=== PATIENT | female | born 1955 | race Caucasian/White ===

== ENCOUNTER 2016-05-05 10:35 | Inpatient (IN) ==
[2016-05-05] MEDS ORDERED: SODIUM CHLORIDE 0.9% 1,000 ML IV STA (11:14)
[2016-05-05] MEDS ORDERED: THIAMINE 200 MG/2 ML VIAL IV STA (11:14)
[2016-05-05] MEDS ORDERED: MAGNESIUM SULF RIDER 1 GM in PREMIX 1 EACH IV STA (11:14)
[2016-05-05 11:37] LABS: Basophils # 0.1 10*3/uL (0.0-0.2); Basophils % 0.7 % (0.0-0.8); Eosinophils # 0.1 10*3/uL (0.0-0.87); Eosinophils % 0.9 % (0.00-10.9); Hematocrit 26.7 VOL% (35.7-47.0); Hemoglobin 8.5 GM/DL (12.0-16.0); Immature Granulocytes % 0.4 %; Immature Granulocytes Absolute 0.04 #; Lymphocytes % 28.1 % (21.3-54.2); Mean Corpuscular HGB Conc 31.8 GM/DL (32-36); Mean Corpuscular Hemoglobin 25 PG (27-34); Mean Corpuscular Volume 79.5 FL (87-102); Mean Platelet Volume 9.2 FL (9.6-12.0); Monocytes # 0.6 10*3/uL (0.11-0.8); Monocytes % 5.6 % (1.7-12.7); Neutrophils # 6.8 10*3/uL (1.4-7.4); Neutrophils % 64.3 % (38.7-73.9); Platelet Count 432 10*3/uL (130-400); Red Blood Count 3.36 10*6/uL (3.8-5.5); Red Cell Distribution Width 15.7 % (9.3-17.3); White Blood Count 10.5 10*3/uL (4.5-13.71)
--- NOTE | 2016-05-05 11:45 | XRay Report ---
Portable chest Date:[05/05/2016] Clinical history: Alteration of consciousness Comparison: 08/30/2015 Technique: Portable AP sitting chest Findings: Persistent cardiomegaly with progressive diffuse parenchymal findings especially in the lower lung zones with small pleural effusions. Postoperative findings in the right breast location. Increased hilar density with degenerative changes. Hiatal hernia. Impression: Progressive CHF/bilateral pneumonia with small pleural effusions. Hiatal hernia. Followup chest x-ray recommended. PROCEDURE INTERPRETED AT [facility] DEPARTMENT OF RADIOLOGY Final Report Signed by: Dr. Angela Powell
--- NOTE | 2016-05-05 11:58 | Emergency Department Note ---
Halle Alvarado Gwan, am scribing for, and in the presence of, Lux Farrell MD 11:35. Jami Alvarado Phillip K, MD, personally performed the services described in this documentation, ascribed by Luis Neri in my presence, and it is both accurate and complete . Arrival - Arrival Chief Complaint: Altered Mental Status Stated Complaint: Altered LOC ED Nursing Triage Note: Brought in by EMS c/o altered LOC-onset 5 days ago. Patient's daughter states that she has been binge drinking for the past 5 days. Reports that she has been drinking 4 pints of vodka daily. O2 sat 70% on room air, improved to 95% on 4L o2. Mode of Arrival: Stretcher Source: Family (Daughter), EMS, Old Records Reviewed, RN Notes Reviewed Time Seen by Provider: 05/05/16 11:04 - History of Present Illness HPI Narrative: Pt is a 60 y/o female, whit a hx of pancreatits and COPD, who presents to the ED for further evaluation of unresponsiveness with an onset today. Patient is a poor historian and she is accompanied by her daughter. Daughter noted that pt was to report to [place] today for detox and after she did not show up she went to pts home and found her on the couch, unresponsive and unable to stimulate with shaking or pouring water on her. This prompted their visit to the ED today. EMS noted that pt's BS was 253 and O2 sat was 70% en route. Daughter continued to confirm that pt drinks 4 pints of ETOH daily, was in detox 2 weeks ago in [place], has been in and out of Detox for the past 6 years. She denies that the pt is taking any medications or that she has had any N/V. No other problems/complaints reported in ED. Onset (ago): hour(s) Consistency: constant Severity: severe Date of Last Menstrual Period: lisset Allergies/Adverse Reactions: Allergies Allergy/AdvReac Type Severity Reaction Status Date / Time aripiprazole [From Abilify] Allergy RASH Verified 10/19/14 16:40 bupropion [From Wellbutrin] Allergy RASH Verified 10/19/14 16:40 Cefaclor [From Ceclor] Allergy RASH Verified 10/19/14 16:40 celecoxib [From Celebrex] Allergy RASH Verified 10/19/14 16:40 ciprofloxacin [From Cipro] Allergy RASH Verified 10/19/14 16:40 citalopram [From Celexa] Allergy RASH Verified 10/19/14 16:40 codeine Allergy RASH Verified 10/19/14 16:40 hydrocodone Allergy RASH Verified 10/19/14 16:40 Hydromorphone [From Dilaudid] Allergy RASH Verified 10/19/14 16:40 meperidine [From Demerol] Allergy RASH Verified 10/19/14 16:40 metronidazole [From Flagyl] Allergy RASH Verified 10/19/14 16:40 morphine Allergy RASH Verified 10/19/14 16:40 Shellfish Allergy RASH Verified 10/19/14 16:40 Home Medications: Home Medications Medication Instructions Recorded Confirmed Type Lisinopril 10 mg PO QPM 08/03/14 09/21/15 History Methocarbamol 750 mg PO QID PRN 08/03/14 09/21/15 History Montelukast Tab [Singulair Tab] 10 mg PO ONCE 08/03/14 09/21/15 History Pantoprazole Tab [Protonix Tab] 40 mg PO BID 08/03/14 09/21/15 History glyBURIDE [Glyburide] 2.5 mg PO DAILY 08/03/14 09/21/15 History Aspirin [Ecotrin] 81 mg PO DAILY 08/17/14 09/21/15 History Cetirizine HCl [ZyrTEC Cap] 10 mg PO DAILY 08/17/14 09/21/15 History FLUoxetine [PROzac] 60 mg PO DAILY 09/30/14 09/21/15 History Clorazepate [Tranxene] 7.5 mg PO TID PRN #30 tablet 10/03/14 09/21/15 Rx LORazepam TAB [Ativan Tab] 1 mg PO BID PRN #30 tablet 10/03/14 09/21/15 Rx Labetalol Tab [Trandate Tab] 100 mg PO BID #60 tablet 10/03/14 09/21/15 Rx Promethazine Tab [Phenergan Tab] 25 mg PO Q4H PRN #60 tablet 10/03/14 09/21/15 Rx Metoclopramide Tab [Reglan Tab] 5 mg PO ACHS #40 tablet 08/31/15 09/21/15 Rx Ranitidine Tab [Zantac Tab] 150 mg PO BID #20 tablet 08/31/15 09/21/15 Rx Clorazepate [Tranxene] 7.5 mg PO DAILY #14 tablet 09/21/15 Rx Ondansetron [Ondansetron Odt] 8 mg PO Q6HR #10 tab.rapdis 10/02/15 Rx Potassium Chloride Cap/Tab [K Dur] 20 meq PO BID #10 tablet 10/02/15 Rx Review of System - Review of System ROS unobtainable: due to mental status Medical,Surgical,& Family Hx - Medical History Cardio: History of: Hypertension Psychological: History of: Anxiety Disorders, Behavior Problems (chronic alcohol abuse), Depression Neurology: History of: Migraine Endocrine: History of: Diabetes Mellitus (IDDM), Diabetes Mellitus (NIDDM), Dyslipidemia Respiratory: History of: Bronchitis, COPD Gastrointestinal: History of: GERD, GI Problems (Hernia) Musculoskeletal: History of: Degenerative Disk Disease - Surgical History Cardiac Surgeries: Patient Denies: Cardiac Surgery Thoracic Surgeries: Patient denies;: Organ Transplant Neurologic Surgeries: Patient denies: Neurologic Surgery HEENT Surgeries: Surgical HX of: Tonsilectomy & Adenoidectomy Abdominal Surgeries: Surgical HX of: Appendectomy, Cholecystectomy, Hernia Repair (1992) Reproductive Surgeries: Surgical HX of;: Breast Surgery (reduction), Gynecologic Surgery (Bladder Repair), Hysterectomy - Family History Family History: Reports;: Family Diabetes, Family Hypertension - Social History Smoking Status: Unknown if ever smoked Frequency of Alcohol Use: Unknown Type of Drug Use: Unknown Exam Vital Signs: Vital Signs Temperature 97.8 F 05/05/16 11:18 Pulse Rate 93 H 05/05/16 11:18 Respiratory Rate 20 05/05/16 11:18 Blood Pressure 115/71 05/05/16 11:18 O2 Sat by Pulse Oximetry 92 L 05/05/16 10:55 - General General appearance: appears intoxicated, lethargic, other (patient is not alert but she is moving around) - Head Head exam: Present: atraumatic, normocephalic - Eye Eye exam: Present: normal appearance - ENT ENT exam: Present: normal oropharynx, mucous membranes moist, TM's normal bilaterally, normal external ear exam - Neck Neck exam: Present: full ROM, trachea midline. Absent: tenderness, meningismus , lymphadenopathy, thyromegaly - Chest Chest inspection: Present: symmetric chest wall rise. Absent: tenderness - Respiratory Respiratory exam: Present: rales (Bilateral bases) - Cardiovascular Cardiovascular exam: Present: regular rate, normal rhythm, normal heart sounds. Absent: murmur, rubs, gallop - Abdominal Exam Abdominal exam: Present: soft, distention (Abdomen is distented but no masses are detected). Absent: tenderness - Extremities Exam Extremities exam: Present: full ROM, pedal edema. Absent: tenderness, calf tenderness - Back Exam Back exam: Present: full ROM. Absent: tenderness - Neurological Exam Neurological exam: Present: other (Patient is lethargic, not alert but moving and appears intoxicated) - Skin Skin exam: Present: warm, dry, intact Course Course Narrative: Admitted to the hospitalist. Results - Labs CBC & BMP: 05/05/16 11:33 05/05/16 11:33 Lab Results: I have reviewed the patients labs Labs: Laboratory Tests 05/05/16 11:33 WBC 10.5 RBC 3.36 L Hgb 8.5 L Hct 26.7 L MCV 79.5 L MCH 25 L MCHC 31.8 L Plt Count 432 H MPV 9.2 L Laboratory Tests 05/05/16 11:33 Ammonia 39 H Laboratory Tests 05/05/16 11:33 Sodium 146 H Potassium 3.1 L Chloride 105 Carbon Dioxide 28 Anion Gap 16.1 H BUN 9 Creatinine 0.50 L Glucose 252 H Calcium 8.4 L Ammonia 39 H Albumin/Globulin Ratio 1.0 L Serum Alcohol 413 - Diagnostic Findings Procedure: Chest x-ray: report reviewed by me (Progressive CHF/bilateral pneumonia with small pleural effusions. Hiatal hernia. Followup chest x-ray recommended. ), CT: report reviewed by me (Head CT: No acute intracranial abnormality is identified. ) Disposition Clinical Impression: Alcohol intoxication, Anemia, Altered mental status Case discussed with: patient Disposition: Still a Patient Condition: Guarded
[2016-05-05 12:00] LABS: Ammonia 39 UMOL/L (11-32)
[2016-05-05] MEDS ORDERED: CLINDAMYCIN INJ 600 MG in PREMIX 1 EACH IV STA (12:00)
--- NOTE | 2016-05-05 12:22 | CT Report ---
Referring physician: Lux Farrell Exam: CT brain without contrast Date: 05/05/2016 Comparison: 08/30/2015 Reason: Alteration of consciousness Technique: Axial images of the head were obtained without the use of contrast. Total DLP was 997.90 mGy*cm. Findings: No hydrocephalus or midline shift is present. There is no evidence of an acute infarction, recent intracranial hemorrhage or abnormal mass effect. Persistent cerebral atrophy and arterial calcifications. The osseous structures appear intact. The mastoid air cells and visualized paranasal sinuses are clear. Impression: No acute intracranial abnormality is identified. The CT exam was performed using one or more of the following dose reduction techniques: Automated exposure control and adjustment of the mA and/or kV according to patient size. PROCEDURE INTERPRETED AT [facility] DEPARTMENT OF RADIOLOGY Final Report Signed by: Dr. Angela Powell
[2016-05-05] MEDS ORDERED: THIAMINE 200 MG/2 ML VIAL ONE (12:44)
[2016-05-05] MEDS ORDERED: CLINDAMYCIN INJ 50 ML IV ONE (12:44)
[2016-05-05 13:05] LABS: Alanine Aminotransferase 41 U/L (13-56); Albumin 3.4 G/DL (3.4-5.0); Alkaline Phosphatase 80 U/L (45-117); Aspartate Amino Transferase 34 U/L (0-37); Bilirubin,Total < 0.39 MG/DL (0.2-1.0); Blood Urea Nitrogen 9 MG/DL (7-18); Calcium 8.4 MG/DL (8.5-10.1); Glucose 252 MG/DL (74-106); Magnesium 2.4 MG/DL (1.8-2.4); Osmolality,Calculated 297.6 MOS/KG (273-304); Potassium 3.1 MMOL/L (3.5-5.1); Sodium 146 MMOL/L (136-145); Total Protein 6.5 G/DL (6.4-8.3)
--- NOTE | 2016-05-05 13:24 | EKG Report ---
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
[2016-05-05 14:25] LABS: Barbiturates Screen,Urine Negative (Negative); Benzodiazepines Screen,Urine Negative (Negative); Cannabinoid Screen,Urine Negative (Negative); Opiate Screen,Urine Negative (Negative); Phencyclidine Screen,Urine Negative (Negative)
[2016-05-05] MEDS ORDERED: DOCUSATE SODIUM 100 MG CAPSULE PO PRN (14:49)
[2016-05-05] MEDS ORDERED: ALBUTEROL 2.5 MG/3 ML NEB RESP TX PRN (14:49)
[2016-05-05] MEDS ORDERED: POTASSIUM CHLORIDE 20 MEQ TABLET PO ONE (14:59)
[2016-05-05] MEDS ORDERED: SODIUM CHLORIDE 0.9% 1,000 ML IV SCH (15:00)
[2016-05-05] MEDS ORDERED: GLUCAGON 1 MG VIAL IM PRN (15:01)
[2016-05-05] MEDS ORDERED: DEXTROSE 50% 25 GM/50 ML VIAL IV PRN (15:01)
[2016-05-05 15:26] LABS: PT Patient Result 10.7 SECS
--- NOTE | 2016-05-05 16:06 | Hospitalist History & Physical ---
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 Viera Current Visit: Yes History of Present Illness Chief complaint: alcohol overdose History of present illness: Ms. Johnson is a 60 year old female who presents to the Er today with altered mental status and shortness of breath. Per nursing staff, on arrival she was unresponsive to pain and her oxygen saturation was in the 70s. She is more awake and alert now, able to answer most of my questions. She states she has been drinking for several days, about 4 pints of Vodka daily. She states she is a chronic alcoholic, recently discharged from detox, two weeks ago. She was given IV NS and thiamine in the ER. Her serum alcohol was 413, drug screen is negative. She denies suicidal ideations, states she suffers from depression and overdrinks on purpose. Now that she is alert, on supplemental O2, her oxygen saturation is 95% but she does have heavy labored breaths. She has a PMH of HTN , Anxiety, depression, migraine, DM, DLD, bronchitis, COPD, Gerd, and DJD. PSH of appy, choly, hyst, and hernia repair. She states she has not been ill lately , denies chest pain, states she does have a headache at present, denies abdominal pain. She states she has not taken her home meds while she has been drinking too. Home Medications Medication Instructions Recorded Confirmed Type Lisinopril 10 mg PO QPM 08/03/14 09/21/15 History Methocarbamol 750 mg PO QID PRN 08/03/14 09/21/15 History Montelukast Tab [Singulair Tab] 10 mg PO ONCE 08/03/14 09/21/15 History Pantoprazole Tab [Protonix Tab] 40 mg PO BID 08/03/14 09/21/15 History glyBURIDE [Glyburide] 2.5 mg PO DAILY 08/03/14 09/21/15 History Aspirin [Ecotrin] 81 mg PO DAILY 08/17/14 09/21/15 History Cetirizine HCl [ZyrTEC Cap] 10 mg PO DAILY 08/17/14 09/21/15 History FLUoxetine [PROzac] 60 mg PO DAILY 09/30/14 09/21/15 History Clorazepate [Tranxene] 7.5 mg PO TID PRN #30 tablet 10/03/14 09/21/15 Rx LORazepam TAB [Ativan Tab] 1 mg PO BID PRN #30 tablet 10/03/14 09/21/15 Rx Labetalol Tab [Trandate Tab] 100 mg PO BID #60 tablet 10/03/14 09/21/15 Rx Promethazine Tab [Phenergan Tab] 25 mg PO Q4H PRN #60 tablet 10/03/14 09/21/15 Rx Metoclopramide Tab [Reglan Tab] 5 mg PO ACHS #40 tablet 08/31/15 09/21/15 Rx Ranitidine Tab [Zantac Tab] 150 mg PO BID #20 tablet 08/31/15 09/21/15 Rx Clorazepate [Tranxene] 7.5 mg PO DAILY #14 tablet 09/21/15 Rx Ondansetron [Ondansetron Odt] 8 mg PO Q6HR #10 tab.rapdis 10/02/15 Rx Potassium Chloride Cap/Tab [K Dur] 20 meq PO BID #10 tablet 10/02/15 Rx Allergies Allergy/AdvReac Type Severity Reaction Status Date / Time aripiprazole [From Abilify] Allergy RASH Verified 10/19/14 16:40 bupropion [From Wellbutrin] Allergy RASH Verified 10/19/14 16:40 Cefaclor [From Ceclor] Allergy RASH Verified 10/19/14 16:40 celecoxib [From Celebrex] Allergy RASH Verified 10/19/14 16:40 ciprofloxacin [From Cipro] Allergy RASH Verified 10/19/14 16:40 citalopram [From Celexa] Allergy RASH Verified 10/19/14 16:40 codeine Allergy RASH Verified 10/19/14 16:40 hydrocodone Allergy RASH Verified 10/19/14 16:40 Hydromorphone [From Dilaudid] Allergy RASH Verified 10/19/14 16:40 meperidine [From Demerol] Allergy RASH Verified 10/19/14 16:40 metronidazole [From Flagyl] Allergy RASH Verified 10/19/14 16:40 morphine Allergy RASH Verified 10/19/14 16:40 Shellfish Allergy RASH Verified 10/19/14 16:40 Medical,Surgical,& Family Hx - Medical History Cardio: History of: Hypertension Psychological: History of: Anxiety Disorders, Behavior Problems (chronic alcohol abuse), Depression Neurology: History of: Migraine Endocrine: History of: Diabetes Mellitus (IDDM), Diabetes Mellitus (NIDDM), Dyslipidemia Respiratory: History of: Bronchitis, COPD Gastrointestinal: History of: GERD, GI Problems (Hernia) Musculoskeletal: History of: Degenerative Disk Disease Other: History of: Miscellaneous Medical Problems (ETOH abuse) - Surgical History Cardiac Surgeries: Patient Denies: Cardiac Surgery Thoracic Surgeries: Patient denies;: Organ Transplant Neurologic Surgeries: Patient denies: Neurologic Surgery HEENT Surgeries: Surgical HX of: Tonsilectomy & Adenoidectomy Abdominal Surgeries: Surgical HX of: Appendectomy, Cholecystectomy, Hernia Repair (1992) Reproductive Surgeries: Surgical HX of;: Breast Surgery (reduction), Gynecologic Surgery (Bladder Repair), Hysterectomy - Family History Family History: Reports;: Family Diabetes, Family Hypertension - Social History Smoking Status: Unknown if ever smoked Frequency of Alcohol Use: Unknown Type of Drug Use: Unknown ROS unobtainable: due to mental status 12 point system: reviewed and no additional remarkable complaints except as stated Exam - Constitutional General appearance: mild distress, over weight - Head Head exam: Present: normal inspection - Eye Pupils: Present: ANA - Respiratory Respiratory exam: Present: decreased breath sounds, prolonged expiratory phase, other - Cardiovascular Cardiovascular exam: Present: regular rate and rhythm, tachycardia - GI/Abdominal GI/Abdominal exam: Present: normal bowel sounds, soft. Absent: tenderness - Extremities Exam Extremities exam: Present: normal inspection, full ROM - Back Exam Back exam: Present: normal inspection - Neurological Exam Neurological exam: Present: alert, CN II-XII intact, reflexes normal. Absent: motor sensory deficit - Psychiatric Psychiatric exam: Present: agitated - Skin Skin exam: Present: warm, dry Results - Labs CBC & BMP: 05/05/16 11:33 05/05/16 11:33 Lab Results: I have reviewed the past 24 hour labs <Breanna Viera - Last Filed: 05/05/16 16:40> History of Present Illness History of present illness: Ms. Johnson is a 60 year old female whom I have seen and examined. She reports she has been drinking and was supposed to go to [place] for detox this morning. IVF, librium, thiamine and folate. consult CM for referral to [place] or other inpatient alcohol rehab. Exam - Constitutional Vitals: Period Temp Pulse Resp BP Sys/Haile Pulse Ox Last 24 Hr 92 12 135/73 96 Results - Labs CBC & BMP: 05/05/16 11:33 05/05/16 11:33
[2016-05-05] MEDS: SODIUM CHLORIDE 0.45% 1,000 ML IV SCH (17:51)
[2016-05-05] MEDS: INSULIN LISPRO 100 UNIT/ML SUBCUT SCH ×2 (17:51→22:49)
[2016-05-05] MEDS: MEROPENEM 1,000 MG in SODIUM CHLORIDE 0.9% 100 ML IV SCH (17:51)
[2016-05-05] MEDS: PANTOPRAZOLE 40 MG VIAL IV SCH (17:51)
[2016-05-05] MEDS: FOLIC ACID 1 MG TABLET PO SCH (17:51)
[2016-05-05] MEDS: LORazepam 2 MG/1 ML VIAL IV PRN ×2 (18:30→22:11)
[2016-05-05] MEDS ORDERED: chlordiazePOXIDE 10 MG CAPSULE PO SCH (21:00)
[2016-05-05] MEDS: ONDANSETRON 4 MG/2 ML VIAL IV PRN (22:41)
[2016-05-06] MEDS: MEROPENEM 1,000 MG in SODIUM CHLORIDE 0.9% 100 ML IV SCH ×3 (01:00→16:12)
[2016-05-06] MEDS: SODIUM CHLORIDE 0.45% 1,000 ML IV SCH ×5 (01:31→16:45)
[2016-05-06] MEDS: LORazepam 2 MG/1 ML VIAL IV PRN ×4 (02:30→18:20)
[2016-05-06] MEDS: ONDANSETRON 4 MG/2 ML VIAL IV PRN ×4 (02:30→20:18)
[2016-05-06 06:03] LABS: Basophils % 0.3 % (0.0-0.8); Eosinophils # 0.1 10*3/uL (0.0-0.87); Eosinophils % 0.6 % (0.00-10.9); Hematocrit 24.5 VOL% (35.7-47.0); Hemoglobin 7.6 GM/DL (12.0-16.0); Immature Granulocytes % 0.3 %; Immature Granulocytes Absolute 0.04 #; Lymphocytes # 1.2 10*3/uL (1.4-4.0); Lymphocytes % 9.7 % (21.3-54.2); Mean Corpuscular Hemoglobin 25 PG (27-34); Mean Corpuscular Volume 80.3 FL (87-102); Mean Platelet Volume 9.6 FL (9.6-12.0); Monocytes # 0.7 10*3/uL (0.11-0.8); Monocytes % 5.9 % (1.7-12.7); Neutrophils # 10.2 10*3/uL (1.4-7.4); Neutrophils % 83.2 % (38.7-73.9); Platelet Count 338 10*3/uL (130-400); Red Blood Count 3.05 10*6/uL (3.8-5.5); Red Cell Distribution Width 15.7 % (9.3-17.3); White Blood Count 12.3 10*3/uL (4.5-13.71)
[2016-05-06 06:34] LABS: Albumin 3.1 G/DL (3.4-5.0); Bilirubin,Total 0.9 MG/DL (0.2-1.0); Osmolality,Calculated 281.4 MOS/KG (273-304); Potassium 3.2 MMOL/L (3.5-5.1); Total Protein 5.9 G/DL (6.4-8.3)
[2016-05-06] MEDS ORDERED: SODIUM CHLORIDE 0.9% 250 ML IV PRN (08:36)
--- NOTE | 2016-05-06 08:44 | Hospitalist Progress Note ---
Assessment and Plan (1) Alcohol withdrawal hallucinosis Status: Acute Assessment and plan: 1)alcohol withdrawal- tremor, tachycardia, HTN, hallucinations last night. continue with IV ativan if needed but increase Librium to 50mgQID to control withdrawal symptoms. Continue in ICU today. 2)anemia- no report of hematemesis or blood in stool or black stool. check anemia profile and transfuse 2 units . 3)HTN- exists separately from withdrawal- when she is not drinking she is on several meds. Nurse to get meds reconciled. Use hydralazine prn. 4)hypokalemia- replace. hypomagnesemia- replaced yesterday. 5)increased ammonia- recehck in am. add lactulose. She may have cirrhosis from alcohol, but has never been diagnosed. Current Visit: Yes (2) Hypomagnesemia Status: Acute Current Visit: No (3) Hypokalemia Status: Acute Current Visit: No (4) Alcohol intoxication Status: Acute Current Visit: Yes (5) Anemia Status: Acute Current Visit: Yes (6) Altered mental status Status: Acute Current Visit: Yes Hospitalist: Subjective Interval history: Ms Johnson is doing ok this morning though she has dry heaves which she says is typical of her withdrawal pattern. She has never had seizures. She did have some hallucinations last night and was given IV ativan and librium as ordered. She is hypertensive and a little tremulous this morning. She does not remember meeting me yesterday. Exam - Constitutional Vitals: Period Temp Pulse Resp BP Sys/Haile Pulse Ox Last 24 Hr 97.6 F 92-128 12-22 135-186/73-106 89-96 General appearance: no acute distress (some tremor in hands. alert, oriented, asks and answers questions appropriately), over weight - Respiratory Respiratory exam: Present: clear to auscultation bilaterally - Cardiovascular Cardiovascular exam: Present: regular rate and rhythm - GI/Abdominal GI/Abdominal exam: Present: normal bowel sounds, soft. Absent: tenderness - Extremities Exam Extremities exam: Absent: edema - Neurological Exam Neurological exam: Present: alert, oriented X3, CN II-XII intact. Absent: motor sensory deficit - Psychiatric Psychiatric exam: Present: normal affect. Absent: agitated, homicidal ideation , suicidal ideation - Skin Skin exam: Present: warm, dry Results - Labs CBC & BMP: 05/06/16 04:42 05/06/16 04:41 Lab Results: I have reviewed the past 24 hour labs
[2016-05-06 09:18] LABS: Basophils # 0.1 10*3/uL (0.0-0.2); Basophils % 0.4 % (0.0-0.8); Eosinophils # 0.1 10*3/uL (0.0-0.87); Eosinophils % 0.7 % (0.00-10.9); Hematocrit 25.5 VOL% (35.7-47.0); Hemoglobin 7.9 GM/DL (12.0-16.0); Immature Granulocytes % 0.3 %; Immature Granulocytes Absolute 0.04 #; Lymphocytes # 1.1 10*3/uL (1.4-4.0); Mean Corpuscular Hemoglobin 25 PG (27-34); Mean Corpuscular Volume 79.7 FL (87-102); Monocytes # 0.8 10*3/uL (0.11-0.8); Monocytes % 6.8 % (1.7-12.7); Neutrophils # 9.9 10*3/uL (1.4-7.4); Neutrophils % 82.8 % (38.7-73.9); Platelet Count 306 10*3/uL (130-400); Red Cell Distribution Width 15.6 % (9.3-17.3)
[2016-05-06] MEDS: LACTULOSE 20 GM/30 ML UDCUP PO SCH ×2 (09:30→20:18)
[2016-05-06] MEDS: chlordiazePOXIDE 25 MG CAPSULE PO SCH ×4 (09:30→20:18)
[2016-05-06] MEDS: INSULIN LISPRO 100 UNIT/ML SUBCUT SCH ×3 (09:30→16:45)
[2016-05-06] MEDS: THIAMINE 100 MG TABLET PO SCH (09:30)
[2016-05-06] MEDS: FOLIC ACID 1 MG TABLET PO SCH (09:30)
[2016-05-06] MEDS: POTASSIUM CHLORIDE 20 MEQ TABLET PO SCH ×2 (09:30→20:18)
[2016-05-06 10:25] LABS: Sedimentation Rate-Westergren 32 MM/HR (0-30)
[2016-05-06 11:28] LABS: Folate 11.5 NG/ML (5.4-24.0); Vitamin B12 264 PG/ML (211-911)
[2016-05-06] MEDS: PANTOPRAZOLE 40 MG VIAL IV SCH (14:52)
[2016-05-07] MEDS: INSULIN LISPRO 100 UNIT/ML SUBCUT SCH ×5 (00:44→20:57)
[2016-05-07] MEDS: LORazepam 2 MG/1 ML VIAL IV PRN ×4 (00:48→20:55)
[2016-05-07] MEDS: MEROPENEM 1,000 MG in SODIUM CHLORIDE 0.9% 100 ML IV SCH ×3 (00:49→17:04)
[2016-05-07] MEDS: SODIUM CHLORIDE 0.45% 1,000 ML IV SCH ×3 (03:56→22:29)
[2016-05-07] MEDS: ONDANSETRON 4 MG/2 ML VIAL IV PRN ×3 (04:58→17:03)
[2016-05-07 05:22] LABS: Basophils # 0.1 10*3/uL (0.0-0.2); Basophils % 0.5 % (0.0-0.8); Eosinophils # 0.5 10*3/uL (0.0-0.87); Eosinophils % 3.6 % (0.00-10.9); Hematocrit 33.2 VOL% (35.7-47.0); Hemoglobin 10.4 GM/DL (12.0-16.0); Immature Granulocytes % 0.5 %; Immature Granulocytes Absolute 0.07 #; Lymphocytes # 1.7 10*3/uL (1.4-4.0); Lymphocytes % 12.7 % (21.3-54.2); Mean Corpuscular HGB Conc 31.3 GM/DL (32-36); Mean Corpuscular Hemoglobin 26 PG (27-34); Mean Platelet Volume 9.4 FL (9.6-12.0); Monocytes # 0.7 10*3/uL (0.11-0.8); Monocytes % 5.1 % (1.7-12.7); NRBC # 0.02 10*3/uL; Neutrophils # 10.4 10*3/uL (1.4-7.4); Neutrophils % 77.6 % (38.7-73.9); Platelet Count 298 10*3/uL (130-400); Red Cell Distribution Width 15.1 % (9.3-17.3); White Blood Count 13.4 10*3/uL (4.5-13.71)
[2016-05-07 05:54] LABS: Calcium 7.7 MG/DL (8.5-10.1); Osmolality,Calculated 280.4 MOS/KG (273-304); Potassium 3.3 MMOL/L (3.5-5.1)
[2016-05-07 07:04] LABS: Hemoglobin A1 (Alkaline) 98.2 % (96.5-98.5); Hemoglobin A2 (Alkaline) 1.8 % (1.5-3.5)
[2016-05-07] MEDS: THIAMINE 100 MG TABLET PO SCH (08:09)
[2016-05-07] MEDS: FOLIC ACID 1 MG TABLET PO SCH (08:09)
[2016-05-07] MEDS: LACTULOSE 20 GM/30 ML UDCUP PO SCH ×2 (08:09→20:25)
[2016-05-07] MEDS: chlordiazePOXIDE 25 MG CAPSULE PO SCH ×4 (08:14→20:51)
[2016-05-07] MEDS ORDERED: LISINOPRIL 10 MG TABLET PO ONE (09:03)
--- NOTE | 2016-05-07 09:16 | Hospitalist Progress Note ---
Assessment and Plan (1) Alcohol withdrawal hallucinosis Status: Acute Assessment and plan: 1)alcohol withdrawal- under better control this morning but still irritable and with mild anxiety and tremor. No hallulcinations. Required a dose of ativan IV this morning. Increase Librium to 50mg q4h, hold if sedated. Ok to move to the floor to monitored bed. 2)anemia- apprpriate bump in hgb after transfusion. Suspect her anemia is due to bone marrow toxicity from alcohol. Stool guaiac pending, no hematemesis, no GI complaints other than nausea with vomiting prior to admission. on PPI. ferritin, B12, folate, retic, hgb electropheresis all WNL. check Fe. 3)HTN- restart her home lisinopril and chlorthalidone. continnue with prn hydralazine. 4)hypokalemia- replace again, recheck in am. 5)ammonia increased- on lactulose. No diagnosed liver disease but certainly could have cirrhosis. her MS is clear, she is alert even on large doses of librium. 6)dispo- to floor. Will need formal alcohol treatment at [place] when discharged as she had planned before admission. Current Visit: Yes (2) Hypomagnesemia Status: Acute Current Visit: No (3) Hypokalemia Status: Acute Current Visit: No (4) Alcohol intoxication Status: Acute Current Visit: Yes (5) Anemia Status: Acute Current Visit: Yes (6) Altered mental status Status: Acute Current Visit: Yes Hospitalist: Subjective Interval history: Ms Johnson is doing better this morning. She rested some last night and her BP was under better control with the hydralazine. She did not have any more hallucinations and her tremor is very mild. She is drinking water, no vomiting. Exam - Constitutional Vitals: Period Temp Pulse Resp BP Sys/Haile Pulse Ox Last 24 Hr 96.5 F-99.8 F 91-106 12-27 150-184/88-108 91-99 General appearance: no acute distress, over weight - Head Head exam: Present: normocephalic, atraumatic - Eye Eye exam: Present: EOMI. Absent: scleral icterus Pupils: Present: ANA - Respiratory Respiratory exam: Present: clear to auscultation bilaterally - Cardiovascular Cardiovascular exam: Present: regular rate and rhythm. Absent: diastolic murmur , systolic murmur - GI/Abdominal GI/Abdominal exam: Present: normal bowel sounds, soft. Absent: tenderness - Extremities Exam Extremities exam: Absent: edema - Neurological Exam Neurological exam: Present: alert, oriented X3, CN II-XII intact. Absent: motor sensory deficit - Psychiatric Psychiatric exam: Present: anxious (a little. describes feeling irritable ) - Skin Skin exam: Present: warm, dry Results - Labs CBC & BMP: 05/07/16 05:07 05/07/16 05:07 Lab Results: I have reviewed the past 24 hour labs
[2016-05-07 09:30] LABS: % Iron Saturation 16.3 % (18-50)
[2016-05-07] MEDS ORDERED: chlordiazePOXIDE 25 MG CAPSULE PO SCH (10:00)
[2016-05-07] MEDS: POTASSIUM CHLORIDE 20 MEQ TABLET PO SCH ×3 (11:39→15:21)
[2016-05-07] MEDS: CARVEDILOL 12.5 MG TABLET PO SCH ×2 (11:41→20:52)
[2016-05-07] MEDS: CHLORTHALIDONE 25 MG TABLET PO SCH (11:41)
[2016-05-07] MEDS: PANTOPRAZOLE 40 MG VIAL IV SCH (15:22)
[2016-05-07] MEDS: LISINOPRIL 10 MG TABLET PO SCH (20:55)
[2016-05-08] MEDS: MEROPENEM 1,000 MG in SODIUM CHLORIDE 0.9% 100 ML IV SCH ×3 (00:51→16:37)
[2016-05-08] MEDS: chlordiazePOXIDE 25 MG CAPSULE PO SCH ×6 (01:04→21:00)
[2016-05-08] MEDS: LORazepam 2 MG/1 ML VIAL IV PRN ×5 (03:24→23:50)
[2016-05-08 05:26] LABS: Calcium 8.1 MG/DL (8.5-10.1); Osmolality,Calculated 293.8 MOS/KG (273-304); Potassium 3.4 MMOL/L (3.5-5.1)
[2016-05-08] MEDS: MONTELUKAST 10 MG TABLET PO SCH (08:14)
[2016-05-08] MEDS: THIAMINE 100 MG TABLET PO SCH (08:14)
[2016-05-08] MEDS: FOLIC ACID 1 MG TABLET PO SCH (08:14)
[2016-05-08] MEDS: CHLORTHALIDONE 25 MG TABLET PO SCH (08:14)
[2016-05-08] MEDS: POTASSIUM CHLORIDE 20 MEQ TABLET PO SCH (08:15)
[2016-05-08] MEDS: CARVEDILOL 12.5 MG TABLET PO SCH ×2 (08:15→21:00)
[2016-05-08] MEDS: INSULIN LISPRO 100 UNIT/ML SUBCUT SCH ×4 (08:16→21:00)
[2016-05-08] MEDS: LACTULOSE 20 GM/30 ML UDCUP PO SCH ×2 (08:16→21:00)
--- NOTE | 2016-05-08 10:44 | Hospitalist Progress Note ---
Assessment and Plan (1) Alcohol withdrawal hallucinosis Status: Acute Assessment and plan: Improving without complaints today Current Visit: Yes Hospitalist: Subjective Interval history: An old patient of mine happy to see me today without complaints Exam - Constitutional Vitals: Period Temp Pulse Resp BP Sys/Haile Pulse Ox Last 24 Hr 96.9 F-99.0 F 76-97 18-23 113-162/58-90 93-98 Exam: Constitutional: General appearance is normal Eyes: Pupils equal round react to light and accommodation conjunctiva and lids are normal Neck: supple without masses Respiratory: Respiratory effort is normal. Lungs are clear to auscultation. Resonant to percussion. Cardiac: Regular rate and rhythm without murmur rub or gallop. PMI at the midclavicular line by palpation. Carotid arteries 2+ palpation no bruits GI: Bowel sounds normoactive, no tenderness or rebound tenderness, no organomegaly Extremities: no clubbing cyanosis or edema Results - Labs CBC & BMP: 05/07/16 05:07 05/08/16 04:32
[2016-05-08] MEDS: SODIUM CHLORIDE 0.45% 1,000 ML IV SCH (12:25)
[2016-05-08] MEDS: PANTOPRAZOLE 40 MG VIAL IV SCH (16:38)
[2016-05-08] MEDS: LISINOPRIL 10 MG TABLET PO SCH (21:00)
[2016-05-09] MEDS: MEROPENEM 1,000 MG in SODIUM CHLORIDE 0.9% 100 ML IV SCH ×3 (00:52→16:42)
[2016-05-09] MEDS: chlordiazePOXIDE 25 MG CAPSULE PO SCH ×6 (00:52→20:37)
[2016-05-09] MEDS: ONDANSETRON 4 MG/2 ML VIAL IV PRN (01:08)
[2016-05-09] MEDS: LORazepam 2 MG/1 ML VIAL IV PRN ×4 (04:20→22:11)
--- NOTE | 2016-05-09 09:19 | Hospitalist Progress Note ---
Assessment and Plan (1) Alcohol withdrawal hallucinosis Status: Acute Assessment and plan: Improving without complaints today 05/09 patient is doing better now we'll check lab and continue to observe she's improving Current Visit: Yes Hospitalist: Subjective Interval history: Patient without complaints today says she feels a lot better Exam - Constitutional Vitals: Period Temp Pulse Resp BP Sys/Haile Pulse Ox Last 24 Hr 96.4 F-98.5 F 76-87 16-20 129-148/66-94 94-97 Exam: Constitutional: General appearance is normal Eyes: Pupils equal round react to light and accommodation conjunctiva and lids are normal Neck: supple without masses Respiratory: Respiratory effort is normal. Lungs are clear to auscultation. Resonant to percussion. Cardiac: Regular rate and rhythm without murmur rub or gallop. PMI at the midclavicular line by palpation. Carotid arteries 2+ palpation no bruits GI: Bowel sounds normoactive, no tenderness or rebound tenderness, no organomegaly Extremities: no clubbing cyanosis or edema Results - Labs CBC & BMP: 05/07/16 05:07 05/08/16 04:32
[2016-05-09] MEDS: POTASSIUM CHLORIDE 20 MEQ TABLET PO SCH (09:55)
[2016-05-09] MEDS: THIAMINE 100 MG TABLET PO SCH (09:56)
[2016-05-09] MEDS: INSULIN LISPRO 100 UNIT/ML SUBCUT SCH ×4 (09:56→20:37)
[2016-05-09] MEDS: FOLIC ACID 1 MG TABLET PO SCH (09:56)
[2016-05-09] MEDS: LACTULOSE 20 GM/30 ML UDCUP PO SCH ×2 (09:56→20:36)
[2016-05-09] MEDS: CHLORTHALIDONE 25 MG TABLET PO SCH (09:56)
[2016-05-09] MEDS: CARVEDILOL 12.5 MG TABLET PO SCH ×2 (09:56→20:37)
[2016-05-09] MEDS: MONTELUKAST 10 MG TABLET PO SCH (09:56)
[2016-05-09] MEDS: PANTOPRAZOLE 40 MG VIAL IV SCH (16:39)
[2016-05-09] MEDS: LISINOPRIL 10 MG TABLET PO SCH (20:37)
[2016-05-10] MEDS: MEROPENEM 1,000 MG in SODIUM CHLORIDE 0.9% 100 ML IV SCH ×3 (01:01→18:42)
[2016-05-10] MEDS: chlordiazePOXIDE 25 MG CAPSULE PO SCH ×4 (01:01→20:35)
[2016-05-10 05:10] LABS: Basophils # 0.1 10*3/uL (0.0-0.2); Basophils % 0.9 % (0.0-0.8); Eosinophils # 0.4 10*3/uL (0.0-0.87); Eosinophils % 4.6 % (0.00-10.9); Hematocrit 35.8 VOL% (35.7-47.0); Hemoglobin 10.8 GM/DL (12.0-16.0); Immature Granulocytes % 0.8 %; Immature Granulocytes Absolute 0.06 #; Lymphocytes # 2.3 10*3/uL (1.4-4.0); Lymphocytes % 28.3 % (21.3-54.2); Mean Corpuscular HGB Conc 30.2 GM/DL (32-36); Mean Corpuscular Hemoglobin 25 PG (27-34); Mean Corpuscular Volume 83.6 FL (87-102); Mean Platelet Volume 9.6 FL (9.6-12.0); Monocytes # 0.7 10*3/uL (0.11-0.8); Monocytes % 8.3 % (1.7-12.7); Neutrophils # 4.6 10*3/uL (1.4-7.4); Neutrophils % 57.1 % (38.7-73.9); Platelet Count 347 10*3/uL (130-400); Red Blood Count 4.28 10*6/uL (3.8-5.5); Red Cell Distribution Width 16.6 % (9.3-17.3)
[2016-05-10 05:39] LABS: Calcium 8.7 MG/DL (8.5-10.1); Magnesium 2.1 MG/DL (1.8-2.4); Osmolality,Calculated 289.8 MOS/KG (273-304); Potassium 3.6 MMOL/L (3.5-5.1)
[2016-05-10] MEDS: LORazepam 2 MG/1 ML VIAL IV PRN (07:22)
[2016-05-10] MEDS: CARVEDILOL 12.5 MG TABLET PO SCH ×2 (10:21→20:34)
[2016-05-10] MEDS: MONTELUKAST 10 MG TABLET PO SCH (10:22)
[2016-05-10] MEDS: CHLORTHALIDONE 25 MG TABLET PO SCH (10:22)
[2016-05-10] MEDS: FOLIC ACID 1 MG TABLET PO SCH (10:22)
[2016-05-10] MEDS: THIAMINE 100 MG TABLET PO SCH (10:22)
[2016-05-10] MEDS: INSULIN LISPRO 100 UNIT/ML SUBCUT SCH ×4 (10:23→20:35)
[2016-05-10] MEDS: POTASSIUM CHLORIDE 20 MEQ TABLET PO SCH (10:25)
[2016-05-10] MEDS: LACTULOSE 20 GM/30 ML UDCUP PO SCH ×2 (10:25→20:34)
[2016-05-10] MEDS: SODIUM CHLORIDE 0.45% 1,000 ML IV SCH (10:32)
[2016-05-10 11:07] LABS: ABG Base Excess 6.2 MMOL/L (-2.5-2.5); ABG HCO3 29.9 MMOL/L (20-26); ABG Oxygen Saturation 94.5 % (95-100); ABG PCO2 42.3 MM HG (35-48); ABG PH 7.466 (7.35-7.45); ABG PO2 69.6 MM HG (80-95); ABG TCO2 27.4 MMOL/L (23-27)
--- NOTE | 2016-05-10 11:43 | Ultrasound Report ---
US abdomen Indication: Fluid retention. ULTRASOUND ABDOMEN, COMPLETE Comparison: None Findings: Liver: Diffuse increased echogenicity and mild heterogeneity of liver parenchyma noted. Normal size, but the contour appears to be slightly nodular. No focal lesion. Gallbladder: Surgically absent Common bile duct: 5 mm Aorta: No aneurysm IVC: Patent Spleen: Normal Pancreas: Normal Right kidney: 13.2 cm length. No mass, cyst, calcification or obstruction Left kidney: 12.6 cm length. No mass, calcification or obstruction. Exophytic 18 x 15 x 15 mm anechoic cyst is present mid pole. Impression: 1. Diffuse increased heterogeneous echotexture of liver noted with a slightly nodular contour suggests cirrhosis. This could, however, represent hepatic steatosis. No focal liver lesion shown. 2. Status post cholecystectomy. 3. Left renal cyst. PROCEDURE INTERPRETED AT [facility] DEPARTMENT OF RADIOLOGY Final Report Signed by: Mehran Alba M.D.
--- NOTE | 2016-05-10 18:31 | Hospitalist Progress Note ---
Assessment and Plan (1) Alcohol withdrawal hallucinosis Status: Acute Assessment and plan: resolved, decrease librium to 25 mg po bid Current Visit: Yes (2) Cirrhosis Status: Acute Assessment and plan: elevated ammonia, lactulose tid Current Visit: Yes (3) Anemia Status: Acute Assessment and plan: stable Current Visit: Yes (4) Leukocytosis (leucocytosis) Status: Acute Assessment and plan: Blood cultures 2 negative. No documentation while on meropenem. White count is now normal. I will stop the meropenem will check BNP And repeat chest x-ray. Current Visit: No Hospitalist: Subjective Interval history: Patient has elevated ammonia level and needs to receive her lactulose about 3 times a day. I have decreased the Librium as she is oversedated. She has no evidence of DTs anymore we need to wean her down on her Librium. [facility]. Exam - Constitutional Vitals: Period Temp Pulse Resp BP Sys/Haile Pulse Ox Last 24 Hr 96.7 F-98.1 F 76-86 18-20 116-145/57-91 92-96 Exam: Heart Rate-[RRR] Lungs-[CTAB] GI-[+bs soft, NT] Ext-[no edema] neuro lethargic, unable to cooperate with physical exam psych depressed mood and affect Results - Labs CBC & BMP: 05/10/16 04:49 05/10/16 04:49 Lab Results: I have reviewed the past 24 hour labs - Diagnostic Findings Procedure: Ultrasound: report reviewed by me (cirrhosis)
[2016-05-10] MEDS: PANTOPRAZOLE 40 MG VIAL IV SCH (18:48)
--- NOTE | 2016-05-10 18:56 | XRay Report ---
Portable chest. Indication: Shortness of breath. Comparison: May 05, 2016. The heart is borderline enlarged. The pulmonary vasculature is prominent. Surgical clip projects over the right thorax. Lateral hernia is present. No consolidation. Improvement in aeration at the lung bases. Mild hypoaeration persists at the right base. Impression: Interval improvement, particularly at the left base. Mild atelectasis persists at the right base. Borderline cardiomegaly and venous congestion. PROCEDURE INTERPRETED AT [facility] DEPARTMENT OF RADIOLOGY Final Report Signed by: Dr. Ary Morgan
[2016-05-10] MEDS: LISINOPRIL 10 MG TABLET PO SCH (20:34)
[2016-05-11] MEDS ORDERED: INSULIN GLARGINE 100 UNIT/ML SUBCUT SCH (09:00)
[2016-05-11] MEDS: CHLORTHALIDONE 25 MG TABLET PO SCH (10:11)
[2016-05-11] MEDS: POTASSIUM CHLORIDE 20 MEQ TABLET PO SCH (10:11)
[2016-05-11] MEDS: THIAMINE 100 MG TABLET PO SCH (10:11)
[2016-05-11] MEDS: chlordiazePOXIDE 25 MG CAPSULE PO SCH (10:11)
[2016-05-11] MEDS: FOLIC ACID 1 MG TABLET PO SCH (10:11)
[2016-05-11] MEDS: MONTELUKAST 10 MG TABLET PO SCH (10:11)
[2016-05-11] MEDS: LACTULOSE 20 GM/30 ML UDCUP PO SCH ×2 (10:11→17:19)
[2016-05-11] MEDS: CARVEDILOL 12.5 MG TABLET PO SCH (10:11)
[2016-05-11] MEDS: INSULIN LISPRO 100 UNIT/ML SUBCUT SCH ×3 (10:12→17:20)
--- NOTE | 2016-05-11 13:18 | Discharge Summary ---
<Any Mccray - Last Filed: 05/11/16 13:05> Hospital Course - Hospital Course Hospital Course: Ms. Johnson was admitted on 05/05 with alcohol intoxication. She was unresponsive on admission, and was started on Merrem daily, librium for withdrawals, hydration. She was noted to have an increased ammonia level at 49 and lactulose was added. Her magnesium and hypokalemia were replaced. She did have leukocytosis and blood cx's were negative. Her librium had to be decreased as it was causing her to be oversedated. Her labs have stabilized and her cx's have been negative. She will be discharged home with home health and physical therapy. Her daughter is POA and is beginning the process of court committal for eventual [place] placement. - Time spent with patient Time with patient DS: Greater than 30 minutes (due to plan, doc and med rec.) Diagnosis - Discharge Diagnosis (1) Alcohol intoxication Status: Acute (2) Anemia Status: Acute (3) Hypokalemia Status: Acute (4) Hypomagnesemia Status: Acute (5) Leukocytosis (leucocytosis) Status: Acute Discharge Plan - Discharge Data Disposition: Home Health Service - Discharge Medications New Lactulose Liquid [Chronulac] 20 gm PO TID #90 udcup Thiamine Tab [Vitamin B1 Tab] 100 mg PO DAILY tablet glyBURIDE [Glyburide] 2.5 mg PO BID #60 tablet hydrALAZINE TAB [Apresoline Tab] 50 mg PO TID PRN #90 tablet PRN Reason: Hypertension Carvedilol [Coreg] 12.5 mg PO BID #60 tablet Folic Acid Tab 1 mg PO DAILY #30 tablet Continue Lisinopril 10 mg PO BEDTIME #30 tablet Montelukast Tab [Singulair Tab] 10 mg PO DAILY #30 tablet Potassium Chloride [K-Tab ER] 20 meq PO DAILY #30 tablet.er Chlorthalidone 25 mg PO DAILY #30 tablet Pantoprazole Tab [Protonix Tab] 40 mg PO BID #60 tablet Discontinued Oxazepam 15 mg PO Q6HR - Follow Up or Referral Follow Up: pmd, [Other] - 1 Week - Forms/Instructions Exam - Constitutional Vitals: Period Temp Pulse Resp BP Sys/Haile Pulse Ox Last 24 Hr 96.8 F-98.1 F 75-83 18-20 110-139/57-72 91-95 Discharge Results Labs on day of discharge: Labs from last 24 hours 05/11/16 05/11/16 05/10/16 11:46 08:27 18:51 POC Glucose 238 H 237 H B-Natriuretic Peptide 28 05/10/16 05/10/16 18:38 15:54 POC Glucose 297 H 277 H B-Natriuretic Peptide DS: Provider Date of admission: 05/05/16 14:49 Primary care physician: . No PCP Attending physician on admission: Breanna Viera MD Consults: 05/11/16 09:53 Consult to Physical Therapy [CONS] Routine Reason for Physical Therapy: Evaluate and Treat Weakness Start Therapy: Today Discharging clinician: Any Mccray NP Expected date of discharge: 05/11/16 <Machelle Fox - Last Filed: 05/11/16 13:51> Hospital Course - Hospital Course Hospital Course: Long conversation with patient's daughter and a counselor who specializes and drug and alcohol problems. Patient has been in multiple facilities for alcoholic rehab and has failed those treatments. 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 There is concern with her developing Wernicke/Korsakoff syndrome due to thiamine deficiency from lung history of alcohol abuse. Ultrasound of the liver shows a nodular cirrhotic liver. Her platelets are still in the within the normal range. Our biggest challenge for her is healthcare. Patient has [employer] who will not pay for rehab but they will pay for home health with PT. Her ammonia level was elevated due to her cirrhosis and she was started on lactulose 3 times a day and became more alert. She does have diabetes or getting his glyburide to control her blood sugars. She has been weaned off the Librium. Her blood pressure is controlled. She will be discharged home today with home health. I advised the daughter to try for court committal for [facility] [place] as a permanent solution. Patient will continue to drink until she dies. Patient does have some funds that the daughter is will used to pay for sitters to monitor her during the day. Diagnosis - Discharge Diagnosis (1) Alcohol withdrawal hallucinosis Status: Acute (2) Cirrhosis Status: Acute (3) Anemia Status: Acute (4) Leukocytosis (leucocytosis) Status: Acute Discharge Plan - Discharge Data Condition at Discharge: Stable Discharge Diet: heart healthy Activity: as per physical therapy Hygiene: no restrictions Exam - Constitutional General appearance: no acute distress, morbidly obese - Respiratory Respiratory exam: Present: clear to auscultation bilaterally. Absent: rales, rhonchi, wheezes - Cardiovascular Cardiovascular exam: Present: regular rate and rhythm. Absent: systolic murmur - GI/Abdominal GI/Abdominal exam: Present: normal bowel sounds, soft. Absent: tenderness - Neurological Exam Neurological exam: Present: oriented X3. Absent: motor sensory deficit - Psychiatric Psychiatric exam: Present: agitated, anxious - Skin Skin exam: Present: normal color, warm
[2016-05-11] MEDS ORDERED: TUBERCULIN SKIN TEST 0.1 ML SYRINGE INTRADERM ONE ×2 (14:37→17:30)
--- NOTE | 2016-05-11 14:41 | Case Mgmt Physician Query Form ---
TB Signs and Symptoms Screening ([place]) INSTRUCTIONS: To be completed annually on residents/staff with a significant Tuberculin Skin Test (TST) upon admission/hire or a prior significant TST. To be completed on all staff at hire. Please respond to each listed symptom with an (X) in either the "YES" or "NO" box. Do you currently have any of the following symptoms: YES NO ( ) (x ) A cough If yes, is it: ( ) Productive ( ) Non- productive ( ) ( x) Hemoptysis (spitting up blood) ( ) ( x) Chest pains ( ) ( x) Weight Loss ( ) (x ) Fever ( ) (x ) Night Sweats ( x) ( ) Weakness ( ) (x ) Loss of Appetite ( ) (x ) Difficulty Breathing If you answered YES" to any of the above questions, how long have symptoms been present? Comments: VANI
[2016-05-11] MEDS: PANTOPRAZOLE 40 MG VIAL IV SCH (17:28)
[2016-05-11 17:58] VITALS: BP 116/76
== END 2016-05-11 17:40 | disposition home health service (06) | DRG 897 ==
LOC: EDUNIT# → EDBD → N.ED 10:35 → N.EDINP 14:49 → N.CC 15:57 → N.4E 05-07 12:57
PROVIDERS: ADMIT Internal Medicine; ATTEND Internal Medicine

== ENCOUNTER 2016-08-21 14:14 | Inpatient (IN) ==
--- NOTE | 2016-08-21 14:54 | Emergency Department Note ---
IJostin Brittany, am scribing for, and in the presence of, Regina Molina DO 14:52. IJesse Debra, DO, personally performed the services described in this documentation, ascribed by Daylin Frankel in my presence, and it is both accurate and complete [id number] . Arrival - Arrival Chief Complaint: Altered Mental Status Stated Complaint: Altered mental status ED Nursing Triage Note: Pt was shopping at [facility] and friend states that she became altered - per friend pt has been drinking alcohol and mouthwash. Pt will open eyes but will not respond verbally Mode of Arrival: Ambulatory Limitations: Altered Mental Status Source: RN Notes Reviewed - History of Present Illness HPI Narrative: Patient is a 60 y/o white female presenting to the ED by EMS for further evaluation of AMS that onset just [employer]. History of current condition is limited secondary to patient's altered mental status and no accompanying family members to provide history. From nurse report patient has a history of alcoholism and has been drinking both ETOH and mouthwash today. While in [facility] with her friend she became altered. Estimates that patient may have drank several bottles of mouthwash, could have been more. In room patient opens her eyes to verbal stimuli, but will not respond verbally. She has an oxygen saturation of 89% on 4L O2 via NC. No other complaint/pain. Allergies/Adverse Reactions: Allergies Allergy/AdvReac Type Severity Reaction Status Date / Time aripiprazole [From Abilify] Allergy RASH Verified 10/19/14 16:40 bupropion [From Wellbutrin] Allergy RASH Verified 10/19/14 16:40 Cefaclor [From Ceclor] Allergy RASH Verified 10/19/14 16:40 celecoxib [From Celebrex] Allergy RASH Verified 10/19/14 16:40 ciprofloxacin [From Cipro] Allergy RASH Verified 10/19/14 16:40 citalopram [From Celexa] Allergy RASH Verified 10/19/14 16:40 codeine Allergy RASH Verified 10/19/14 16:40 hydrocodone Allergy RASH Verified 10/19/14 16:40 Hydromorphone [From Dilaudid] Allergy RASH Verified 10/19/14 16:40 meperidine [From Demerol] Allergy RASH Verified 10/19/14 16:40 metronidazole [From Flagyl] Allergy RASH Verified 10/19/14 16:40 morphine Allergy RASH Verified 10/19/14 16:40 Shellfish Allergy RASH Verified 10/19/14 16:40 Home Medications: Home Medications Medication Instructions Recorded Confirmed Type Carvedilol [Coreg] 12.5 mg PO BID #60 tablet 05/11/16 08/21/16 Rx Chlorthalidone 25 mg PO DAILY #30 tablet 05/11/16 08/21/16 Rx Folic Acid Tab 1 mg PO DAILY #30 tablet 05/11/16 08/21/16 Rx Lisinopril 10 mg PO BEDTIME #30 tablet 05/11/16 08/21/16 Rx Montelukast Tab [Singulair Tab] 10 mg PO DAILY #30 tablet 05/11/16 08/21/16 Rx Pantoprazole Tab [Protonix Tab] 40 mg PO BID #60 tablet 05/11/16 08/21/16 Rx Potassium Chloride [K-Tab ER] 20 meq PO DAILY #30 tablet.er 05/11/16 08/21/16 Rx Insulin Glargine,Hum.rec.anlog 50 units SUBCUT BEDTIME 08/21/16 08/21/16 History [Lantus SoloStar] Thiamine Tab [Vitamin B1 Tab] 100 mg PO 0800 08/21/16 08/21/16 History traZODone [Desyrel] 150 - 300 mg PO BEDTIME 08/21/16 08/21/16 History Review of System - Review of System ROS unobtainable: due to mental status Medical,Surgical,& Family Hx - Medical History Cardio: History of: Hypertension Psychological: History of: Anxiety Disorders, Behavior Problems (chronic alcohol abuse), Depression Neurology: History of: Migraine Endocrine: History of: Diabetes Mellitus (IDDM), Diabetes Mellitus (NIDDM), Dyslipidemia Respiratory: History of: Bronchitis, COPD Gastrointestinal: History of: GERD, GI Problems (Hernia) Musculoskeletal: History of: Degenerative Disk Disease Other: History of: Miscellaneous Medical Problems (ETOH abuse) - Surgical History Cardiac Surgeries: Patient Denies: Cardiac Surgery Thoracic Surgeries: Patient denies;: Organ Transplant Neurologic Surgeries: Patient denies: Neurologic Surgery HEENT Surgeries: Surgical HX of: Tonsilectomy & Adenoidectomy Abdominal Surgeries: Surgical HX of: Appendectomy, Cholecystectomy, Hernia Repair (1992) Reproductive Surgeries: Surgical HX of;: Breast Surgery (reduction), Gynecologic Surgery (Bladder Repair), Hysterectomy - Family History Family History: Reports;: Family Diabetes, Family Hypertension - Social History Smoking Status: Unknown if ever smoked Exam Vital Signs: Vital Signs Temperature 98.2 F 08/21/16 14:30 Pulse Rate 73 08/21/16 16:45 Respiratory Rate 16 08/21/16 16:45 Blood Pressure 94/73 08/21/16 14:30 O2 Sat by Pulse Oximetry 100 08/21/16 16:45 - General Exam limited due to: ALOC General appearance: lethargic, other (patient will open eyes but is not verbal) - Head Head exam: Present: atraumatic, normocephalic, normal inspection - Eye Eye exam: Present: PERRL, EOMI. Absent: normal appearance (pupils are dilated bilaterally) - ENT ENT exam: Present: normal exam, normal oropharynx - Neck Neck exam: Present: normal inspection - Chest Chest inspection: Present: normal inspection - Respiratory Respiratory exam: Present: normal lung sounds bilaterally, other (sats 89% on 4L O2 via NC) - Cardiovascular Cardiovascular exam: Present: regular rate, normal rhythm, normal heart sounds. Absent: murmur, rubs, gallop - Abdominal Exam Abdominal exam: Present: soft, normal bowel sounds - Extremities Exam Extremities exam: Present: normal inspection - Back Exam Back exam: Present: normal inspection - Neurological Exam Neurological exam: Present: CN II-XII intact. Absent: alert (due to lethargic state and AMS), oriented X3, motor sensory deficit - Skin Skin exam: Present: warm, dry, intact, normal color Results - Labs CBC & BMP: 08/21/16 14:37 08/21/16 14:37 Lab Results: I have reviewed the patients labs Labs: Laboratory Tests 08/21/16 08/21/16 14:37 14:37 WBC 18.8 H RBC 4.43 Hgb 11.7 L Hct 37.4 MCV 84.4 L MCH 26 L MCHC 31.3 L Plt Count 414 H Neut # (Auto) 10.1 H Lymph # (Auto) 7.2 H Cache # (Auto) 1.3 H Salicylates < 2.8 L Laboratory Tests 08/21/16 14:37 Sodium 138 Potassium 3.7 Chloride 103 Carbon Dioxide 23 Anion Gap 15.7 H BUN 18 Creatinine 0.60 BUN/Creatinine Ratio 30.00 H Glucose 161 H Serum Alcohol 347 - Diagnostic Findings Procedure: Chest x-ray: report reviewed by me (Similar mild cardiomegaly with slight worsening of perihilar and basilar interstitial opacities suggestive of interstitial edema changes. Endotracheal tube now noted in place.)
[2016-08-21 15:11] LABS: Basophils # 0.1 10*3/uL (0.0-0.2); Basophils % 0.6 % (0.0-0.8); Eosinophils # 0.1 10*3/uL (0.0-0.87); Eosinophils % 0.6 % (0.00-10.9); Hematocrit 37.4 VOL% (35.7-47.0); Hemoglobin 11.7 GM/DL (12.0-16.0); Immature Granulocytes % 0.4 %; Immature Granulocytes Absolute 0.07 #; Lymphocytes # 7.2 10*3/uL (1.4-4.0); Lymphocytes % 38.1 % (21.3-54.2); Mean Corpuscular HGB Conc 31.3 GM/DL (32-36); Mean Corpuscular Hemoglobin 26 PG (27-34); Mean Corpuscular Volume 84.4 FL (87-102); Mean Platelet Volume 9.8 FL (9.6-12.0); Monocytes # 1.3 10*3/uL (0.11-0.8); Monocytes % 6.7 % (1.7-12.7); Neutrophils # 10.1 10*3/uL (1.4-7.4); Neutrophils % 53.6 % (38.7-73.9); Platelet Count 414 T/CUMM (130-400); Red Blood Count 4.43 MC/CUMM (3.8-5.5); Red Cell Distribution Width 14.7 % (9.3-17.3); White Blood Count 18.8 T/CUMM (4-12)
[2016-08-21 15:24] LABS: Alanine Aminotransferase 28 U/L (13-56); Albumin 3.8 G/DL (3.4-5.0); Alkaline Phosphatase 91 U/L (45-117); Aspartate Amino Transferase 25 U/L (0-37); Bilirubin,Total < 0.39 MG/DL (0.2-1.0); Blood Urea Nitrogen 18 MG/DL (7-18); Calcium 9.1 MG/DL (8.5-10.1); Glucose 161 MG/DL (74-106); Osmolality,Calculated 279.7 MOS/KG (273-304); Potassium 3.7 MMOL/L (3.5-5.1); Sodium 138 MMOL/L (136-145); Total Protein 6.9 G/DL (6.4-8.3)
[2016-08-21] MEDS ORDERED: PROPOFOL 1,000 MG/100 ML BOTTLE IV ONE (15:49)
[2016-08-21] MEDS ORDERED: VECURONIUM 10 MG VIAL IV ONE (15:49)
[2016-08-21] MEDS: PROPOFOL 1,000 MG/100 ML BOTTLE IV SCH ×2 (15:55→23:30)
--- NOTE | 2016-08-21 15:58 | Hospitalist History & Physical ---
Assessment and Plan (1) Alcohol intoxication Status: Acute Assessment and plan: Admit to ICU. Cardiac monitoring. Pt. intubated. IV fluids initiated. Salicylate level ordered. Drug screen pending. Current Visit: No (2) Altered mental status Status: Acute Assessment and plan: ICU monitoring. Ammonia level pending. Order abgs. Correct underlying issue. Current Visit: No (3) Respiratory distress Status: Acute Assessment and plan: Admit to ICU. Pt intubated. ABGs pending. CXR showed mild cardiomegaly and possible infiltrate. Current Visit: Yes (4) Leukocytosis (leucocytosis) Status: Acute Assessment and plan: WBC of 18.8. Blood cultures ordered. Repeat CBC in am. Secondary to underlying process. Pt. will be started on IV antibiotics. Current Visit: No History of Present Illness Chief complaint: alcohol intoxication History of present illness: Ms. Johnson is a 60 year old white female with a history of htn, cirrhosis, and alcohol intoxication that presented to the ED via EMS for further evaluation of AMS just prior to arrival. From what nurses were able to gather, patient was drinking alcohol and mouthwash today while in the local [employer]. She fell out in the store and EMS was called. Any possible injuries sustained as a result of the fall are unknown. Additionally, there is not any information available on how much alcohol/mouthwash the patient consumed. In the ED, the patient's saturations were reported to be in the low 80s on 4L O2 via NC. The decision was made to intubate the patient urgently. Preliminary lab revealed WBC of 18.8 and alcohol level of 347. Head CT and blood gases are pending. The patient will be admitted to the intensive care unit for further evaluation and treatment. Home Medications Medication Instructions Recorded Confirmed Type Carvedilol [Coreg] 12.5 mg PO BID #60 tablet 05/11/16 08/21/16 Rx Chlorthalidone 25 mg PO DAILY #30 tablet 05/11/16 08/21/16 Rx Folic Acid Tab 1 mg PO DAILY #30 tablet 05/11/16 08/21/16 Rx Lisinopril 10 mg PO BEDTIME #30 tablet 05/11/16 08/21/16 Rx Montelukast Tab [Singulair Tab] 10 mg PO DAILY #30 tablet 05/11/16 08/21/16 Rx Pantoprazole Tab [Protonix Tab] 40 mg PO BID #60 tablet 05/11/16 08/21/16 Rx Potassium Chloride [K-Tab ER] 20 meq PO DAILY #30 tablet.er 05/11/16 08/21/16 Rx Insulin Glargine,Hum.rec.anlog 50 units SUBCUT BEDTIME 08/21/16 08/21/16 History [Lantus SoloStar] Thiamine Tab [Vitamin B1 Tab] 100 mg PO 0800 08/21/16 08/21/16 History traZODone [Desyrel] 150 - 300 mg PO BEDTIME 08/21/16 08/21/16 History Allergies Allergy/AdvReac Type Severity Reaction Status Date / Time aripiprazole [From Abilify] Allergy RASH Verified 10/19/14 16:40 bupropion [From Wellbutrin] Allergy RASH Verified 10/19/14 16:40 Cefaclor [From Ceclor] Allergy RASH Verified 10/19/14 16:40 celecoxib [From Celebrex] Allergy RASH Verified 10/19/14 16:40 ciprofloxacin [From Cipro] Allergy RASH Verified 10/19/14 16:40 citalopram [From Celexa] Allergy RASH Verified 10/19/14 16:40 codeine Allergy RASH Verified 10/19/14 16:40 hydrocodone Allergy RASH Verified 10/19/14 16:40 Hydromorphone [From Dilaudid] Allergy RASH Verified 10/19/14 16:40 meperidine [From Demerol] Allergy RASH Verified 10/19/14 16:40 metronidazole [From Flagyl] Allergy RASH Verified 10/19/14 16:40 morphine Allergy RASH Verified 10/19/14 16:40 Shellfish Allergy RASH Verified 10/19/14 16:40 Medical,Surgical,& Family Hx - Medical History Cardio: History of: Hypertension Psychological: History of: Anxiety Disorders, Behavior Problems (chronic alcohol abuse), Depression Neurology: History of: Migraine Endocrine: History of: Diabetes Mellitus (IDDM), Diabetes Mellitus (NIDDM), Dyslipidemia Respiratory: History of: Bronchitis, COPD Gastrointestinal: History of: GERD, GI Problems (Hernia) Musculoskeletal: History of: Degenerative Disk Disease Other: History of: Miscellaneous Medical Problems (ETOH abuse) - Surgical History Cardiac Surgeries: Patient Denies: Cardiac Surgery Thoracic Surgeries: Patient denies;: Organ Transplant Neurologic Surgeries: Patient denies: Neurologic Surgery HEENT Surgeries: Surgical HX of: Tonsilectomy & Adenoidectomy Abdominal Surgeries: Surgical HX of: Appendectomy, Cholecystectomy, Hernia Repair (1992) Reproductive Surgeries: Surgical HX of;: Breast Surgery (reduction), Gynecologic Surgery (Bladder Repair), Hysterectomy - Family History Family History: Reports;: Family Diabetes, Family Hypertension - Social History Smoking Status: Unknown if ever smoked ROS unobtainable: due to endotracheal tube Exam - Constitutional Vitals: Period Temp Pulse Resp BP Sys/Haile Pulse Ox Last 24 Hr 98.2 F-98.2 F 82-82 20-20 94-94/73-73 83 General appearance: severe distress, over weight, disheveled - Head Head exam: Present: normal inspection, normocephalic - Eye Eye exam: Present: EOMI - ENT ENT exam: Present: other (pt. being intubated.) - Neck Neck exam: Present: other (pt. being intubated) - Respiratory Respiratory exam: Present: other (pt was in process of being intubated. breath sounds noted to be coarse) - Cardiovascular Cardiovascular exam: Present: tachycardia - GI/Abdominal GI/Abdominal exam: Present: normal bowel sounds, distended. Absent: tenderness - Extremities Exam Extremities exam: Absent: edema - Neurological Exam Neurological exam: Present: altered - Psychiatric Psychiatric exam: Present: other (unable to assess; patient intubated) - Skin Skin exam: Present: warm, dry Results - Labs CBC & BMP: 08/21/16 14:37 08/21/16 14:37 Lab Results: I have reviewed the past 24 hour labs
[2016-08-21] MEDS ORDERED: ONDANSETRON 4 MG/2 ML VIAL IV PRN (16:05)
[2016-08-21] MEDS ORDERED: ALBUTEROL 2.5 MG/3 ML NEB RESP TX PRN (16:05)
--- NOTE | 2016-08-21 16:06 | XRay Report ---
Exam: XR chest 1V portable Indication: Intubated Comparison study: 05/10/2016 Findings: Cardiac silhouette is mildly enlarged, similar to prior. There are patchy perihilar and basilar interstitial opacities suggestive of interstitial edema changes. Patchy basilar infectious/inflammatory process are not excluded. An endotracheal tube is noted in place with the tip terminating 4 cm from the shawn. There is no pneumothorax. Osseous structures appear stable Impression: Similar mild cardiomegaly with slight worsening of perihilar and basilar interstitial opacities suggestive of interstitial edema changes. Endotracheal tube now noted in place. PROCEDURE INTERPRETED AT [facility] DEPARTMENT OF RADIOLOGY Final Report Signed by: Tim Keene
[2016-08-21] MEDS ORDERED: DEXTROSE 50% 25 GM/50 ML VIAL IV PRN (16:11)
[2016-08-21] MEDS ORDERED: GLUCAGON 1 MG VIAL IM PRN (16:11)
[2016-08-21] MEDS ORDERED: SUCCINYLCHOLINE 200 MG/10 ML VIAL ONE (16:13)
[2016-08-21] MEDS ORDERED: ETOMIDATE 20 MG/10 ML VIAL IV ONE (16:13)
[2016-08-21 16:20] LABS: Apearance,Urine Slightly Hazy (Clear); Bacteria,Urine Occasional /HPF (Few); Bilirubin,Urine Negative (Negative); Blood, Urine Negative (Negative); Glucose,Urine (UA) Negative (Negative); Hyaline Casts,Urine 8 /LPF (0-3); Ketones,Urine Negative (Negative); Mucus,Urine Occasional /LPF (Occasional); Nitrite,Urine Negative (Negative); Protein,Urine 100 MG/DL; RBC,Urine 1 /HPF (0-4); Squamous Epithelial Cell,Urine Occasional /HPF (0-10); Urine Color Yellow (Yellow); Urine Specific Gravity 1.017 (1.001-1.035); Urine Urobilinogen < 2.0 EU/DL (0.2-1.0); WBC,Urine 3 /HPF (0-6)
[2016-08-21] MEDS ORDERED: PANTOPRAZOLE 40 MG VIAL IV SCH (16:30)
[2016-08-21 16:36] LABS: ABG Base Excess -4.8 MMOL/L (-2.5-2.5); ABG HCO3 19.8 MMOL/L (20-26); ABG Oxygen Saturation 98.9 % (95-100); ABG PCO2 35.3 MM HG (35-48); ABG PH 7.367 (7.35-7.45); ABG PO2 264.4 MM HG (80-95); ABG TCO2 20.9 MMOL/L (23-27)
[2016-08-21] MEDS: SODIUM CHLORIDE 0.9% 1,000 ML IV SCH (17:00)
[2016-08-21 17:01] LABS: Barbiturates Screen,Urine Negative (Negative); Benzodiazepines Screen,Urine Negative (Negative); Cannabinoid Screen,Urine Negative (Negative); Opiate Screen,Urine Negative (Negative); Phencyclidine Screen,Urine Negative (Negative)
[2016-08-21] MEDS ORDERED: ETOMIDATE 20 MG/10 ML VIAL IV STA (17:02)
[2016-08-21] MEDS ORDERED: SODIUM CHLORIDE 0.9% 1,000 ML IV STA (17:02)
[2016-08-21] MEDS ORDERED: SUCCINYLCHOLINE 200 MG/10 ML VIAL IV STA ×2 (17:02→17:03)
[2016-08-21] MEDS ORDERED: VECURONIUM 10 MG VIAL IV STA (17:02)
[2016-08-21] MEDS ORDERED: ENOXAPARIN 40 MG/0.4 ML SYRINGE SUBCUT SCH (18:00)
--- NOTE | 2016-08-21 18:00 | CT Report ---
CT head/brain wo con INDICATION: Altered mental status/confusion The total DLP is 997 mGy*cm. COMPARISON: Noncontrast CT head dated May 05, 2016 Technique: Serial axial tomographic images of the brain were obtained without the use of intravenous contrast. Dose reduction: This CT exam was performed using one or more of the following dose reduction techniques: Automated exposure control, automated adjustment of the mA and/or KV according to patient size, or use of iterative reconstruction technique. Findings: Mild generalized atrophy is noted with mild prominence of the sulci and cortical volume loss. Periventricular white matter hypodensity changes are noted bilaterally which do not demonstrate mass effect and are nonspecific but favored to represent sequela of chronic microvascular ischemia. There is no evidence of vascular territory infarct or acute intracranial hemorrhage. The vera-white matter differentiation is generally maintained. There is no hydrocephalus. The basilar cisterns are patent. The visualized paranasal sinuses, mastoid air cells and middle ear cavities are predominantly clear. The included orbits and their contents appear within normal limits. The visualized osseous structures and overlying soft tissues of the skull and face demonstrate no acute abnormality. IMPRESSION: No acute intracranial abnormality. Similar mild atrophy and findings suggestive of sequela of chronic microvascular ischemia. PROCEDURE INTERPRETED AT [facility] DEPARTMENT OF RADIOLOGY Final Report Signed by: Tim Keene
[2016-08-21] MEDS: PIPERACILLIN/TAZOBACTAM 3,375 MG in SODIUM CHLORIDE 0.9% 100 ML IV SCH (18:27)
[2016-08-21 18:31] LABS: ABG Base Excess -3.9 MMOL/L (-2.5-2.5); ABG HCO3 20.4 MMOL/L (20-26); ABG Oxygen Saturation 96.6 % (95-100); ABG PCO2 34.7 MM HG (35-48); ABG PH 7.388 (7.35-7.45); ABG PO2 101.2 MM HG (80-95); ABG TCO2 21.5 MMOL/L (23-27); Allen Test Positive; Pt O2 Delivery Device Ventilator
[2016-08-21] MEDS: FAMOTIDINE 20 MG/2 ML VIAL IV SCH (19:02)
[2016-08-21] MEDS: INSULIN LISPRO 100 UNIT/ML SUBCUT SCH (19:02)
[2016-08-21] MEDS: CARVEDILOL 12.5 MG TABLET PO SCH (20:40)
[2016-08-22] MEDS: INSULIN LISPRO 100 UNIT/ML SUBCUT SCH ×3 (00:32→12:33)
[2016-08-22] MEDS: SODIUM CHLORIDE 0.9% 1,000 ML IV SCH ×3 (01:00→13:48)
[2016-08-22] MEDS: PIPERACILLIN/TAZOBACTAM 3,375 MG in SODIUM CHLORIDE 0.9% 100 ML IV SCH ×2 (01:57→10:34)
[2016-08-22] MEDS: PROPOFOL 1,000 MG/100 ML BOTTLE IV SCH ×3 (02:20→08:53)
[2016-08-22 03:38] LABS: ABG Base Excess -1.1 MMOL/L (-2.5-2.5); ABG HCO3 23.5 MMOL/L (20-26); ABG Oxygen Saturation 99.3 % (95-100); ABG PCO2 26.6 MM HG (35-48); ABG PH 7.506 (7.35-7.45); ABG TCO2 18.9 MMOL/L (23-27); Allen Test Positive; Pt O2 Delivery Device Ventilator
[2016-08-22] MEDS: FAMOTIDINE 20 MG/2 ML VIAL IV SCH (04:50)
[2016-08-22 06:26] LABS: Basophils % 0.3 % (0.0-0.8); Eosinophils % 0.3 % (0.00-10.9); Hematocrit 30.7 VOL% (35.7-47.0); Immature Granulocytes % 0.5 %; Immature Granulocytes Absolute 0.05 #; Lymphocytes # 2.7 10*3/uL (1.4-4.0); Mean Corpuscular HGB Conc 32.6 GM/DL (32-36); Mean Corpuscular Hemoglobin 26 PG (27-34); Mean Corpuscular Volume 79.9 FL (87-102); Mean Platelet Volume 10.2 FL (9.6-12.0); Monocytes # 0.8 10*3/uL (0.11-0.8); Monocytes % 7.2 % (1.7-12.7); Neutrophils # 6.9 10*3/uL (1.4-7.4); Neutrophils % 65.7 % (38.7-73.9); Platelet Count 350 T/CUMM (130-400); Red Blood Count 3.84 MC/CUMM (3.8-5.5); Red Cell Distribution Width 14.9 % (9.3-17.3); White Blood Count 10.4 T/CUMM (4-12)
[2016-08-22 06:37] LABS: INR 1.1; PT Patient Result 11.2 SECS
[2016-08-22 06:53] LABS: Albumin 3.1 G/DL (3.4-5.0); Bilirubin,Total 0.7 MG/DL (0.2-1.0); Calcium 8.5 MG/DL (8.5-10.1); Magnesium 1.7 MG/DL (1.8-2.4); Osmolality,Calculated 280.3 MOS/KG (273-304); Potassium 2.7 MMOL/L (3.5-5.1); Total Protein 5.7 G/DL (6.4-8.3)
[2016-08-22] MEDS ORDERED: LORazepam 2 MG/1 ML VIAL IV PRN (07:32)
[2016-08-22] MEDS: POTASSIUM CHLORIDE RIDER 10 MEQ in PREMIX 1 EACH IV PRN ×2 (07:59→10:36)
[2016-08-22] MEDS ORDERED: THIAMINE 100 MG TABLET PO SCH (08:00)
[2016-08-22] MEDS ORDERED: MONTELUKAST 10 MG TABLET PO SCH (09:00)
[2016-08-22] MEDS ORDERED: FOLIC ACID 1 MG TABLET PO SCH (09:00)
--- NOTE | 2016-08-22 09:28 | Hospitalist Progress Note ---
Assessment and Plan (1) Alcohol intoxication Status: Acute Assessment and plan: Admit to ICU. Cardiac monitoring. Pt. intubated. IV fluids initiated. Salicylate level ordered. Drug screen pending. 08/22 Pt. more alert today. Cpap trial today. Current Visit: No (2) Altered mental status Status: Acute Assessment and plan: ICU monitoring. Ammonia level pending. Order abgs. Correct underlying issue. 08/22 Pt. alert today. Ammonia level 44 will repeat in am. Pt. still on vent; hope to wean off. ABGs to be obtained Current Visit: No (3) Respiratory distress Status: Acute Assessment and plan: Admit to ICU. Pt intubated. ABGs pending. CXR showed mild cardiomegaly and possible infiltrate. 08/22 Pt is alert. Still on ventilator. Will try trial period on cpap today. Current Visit: Yes (4) Leukocytosis (leucocytosis) Status: Acute Assessment and plan: WBC of 18.8. Blood cultures ordered. Repeat CBC in am. Secondary to underlying process. Pt. will be started on IV antibiotics. 08/22 WBC of 10 today. Will continue to monitor lab values. Continue antibiotic ( Zosyn). Current Visit: No (5) Hypokalemia Status: Acute Assessment and plan: Pt K 2.7 Replacement protocol ordered. Will repeat K later today and in am. Pt. has cardiac monitoring. Current Visit: No Hospitalist: Subjective Interval history: Pt. seen and examined in ICU. Pt. remains on ventilator but is alert today. Pt. is also noted to be anxious and slightly agitated. Pt. is able to communicate via a notepad. 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 K noted to be 2.7 today; replacement ordered. Leukocytosis improved continue; continue antibiotic therapy. Plans to extubate and began cpap trial. Continue to monitor patient. Exam - Constitutional Vitals: Period Temp Pulse Resp BP Sys/Haile Pulse Ox Last 24 Hr 97.4 F-98.0 F 67-85 14-20 89-140/49-96 98-100 General appearance: no acute distress, over weight - Head Head exam: Present: normal inspection, normocephalic - Eye Eye exam: Present: EOMI. Absent: scleral icterus Pupils: Present: ANA - Respiratory Respiratory exam: Present: other (coarse) - Cardiovascular Cardiovascular exam: Present: regular rate and rhythm - GI/Abdominal GI/Abdominal exam: Present: normal bowel sounds, soft. Absent: tenderness - Extremities Exam Extremities exam: Present: normal inspection, normal capillary refill - Neurological Exam Neurological exam: Present: alert, other (pt is on ventilator. communicating by writing on note pad) - Psychiatric Psychiatric exam: Present: agitated, anxious - Skin Skin exam: Present: normal color, warm, dry Results - Labs CBC & BMP: 08/22/16 05:14 08/22/16 05:14 Lab Results: I have reviewed the past 24 hour labs
[2016-08-22] MEDS ORDERED: MAGNESIUM SULF RIDER 2 GM in PREMIX 1 EACH IV ONE (12:00)
[2016-08-22] MEDS: CARVEDILOL 12.5 MG TABLET PO SCH (12:17)
[2016-08-22] MEDS: POTASSIUM CHLORIDE 20 MEQ TABLET PO PRN ×2 (13:18→15:32)
--- NOTE | 2016-08-22 15:32 | XRay Report ---
Exam: XR chest 1V portable Indication: Intubated Comparison study: 08/21/2016 Findings: Endotracheal tube is in similar position. Minimal patchy perihilar and basilar interstitial and airspace opacities are not significantly changed from prior. There is no pneumothorax. Osseous structures are stable. Impression: No significant change. PROCEDURE INTERPRETED AT [facility] DEPARTMENT OF RADIOLOGY Final Report Signed by: Tim Keene
--- NOTE | 2016-08-22 15:47 | Discharge Summary ---
Hospital Course - Hospital Course Hospital Course: Ms. Johnson is a 60-year-old white female that was admitted to the emergency department yesterday with acute encephalopathy related to alcohol intoxication. The patient was found intoxicated at [facility] after ingesting mouthwash in an effort to get drunk. The patient achieved her endeavor and had an alcohol level of greater than 300. She reports that mouthwash 70% alcohol by volume and 140 proof. She was admitted to the intensive care unit after intubation in the emergency department for inability to manage her airway secondary to severe encephalopathy. She was maintained on the ventilator overnight and this morning was successfully extubated without any complications. She is alert awake and oriented 3 and in no acute distress. Lung sounds are clear. Oxygen saturation and vital signs are all stable. Labs have improved. The patient has reached maximal benefit from this hospitalization and is ready for discharge home. She reports that she has struggled with alcoholism in the past and attends regular Alcoholics Anonymous meetings. She plans to continue outpatient follow-up. Her primary care physician is Dr. Nieves. She does not have an accurate list of her home medications at this time as her purse is not with her. 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 She reports that this emotional breakdown and relapse to drinking alcohol was preceded by a stressful situation with her daughter. - Time spent with patient Time with patient DS: Greater than 30 minutes (Total discharge time for this patient, including [id number] time, clinical documentation, medication reconciliation, and discharge planning was 40 minutes.) Diagnosis - Discharge Diagnosis (1) Leukocytosis (leucocytosis) Status: Resolved (2) Alcohol intoxication Status: Resolved (3) Altered mental status Status: Resolved (4) Respiratory distress Status: Resolved (5) Hypertension Status: Chronic (6) COPD (chronic obstructive pulmonary disease) Status: Chronic (7) Diabetes mellitus type 2, insulin dependent Status: Chronic Discharge Plan - Discharge Data Disposition: Disch To Home/Self Care Condition at Discharge: Stable Discharge Diet: diabetic diet Activity: resume usual activities as tolerated Hygiene: no restrictions Weight Bearing at Discharge: full weight bearing Driving: no restrictions Contact your physician if you experience:: fever over 101 - Discharge Medications New Azithromycin [Azithromycin Tri-Niranjan] 500 mg PO DAILY #1 pack Continue Lisinopril 10 mg PO BEDTIME #30 tablet Montelukast Tab [Singulair Tab] 10 mg PO DAILY #30 tablet Potassium Chloride [K-Tab ER] 20 meq PO DAILY #30 tablet.er Insulin Glargine,Hum.rec.anlog [Lantus SoloStar] 50 units SUBCUT BEDTIME traZODone [Desyrel] 150 - 300 mg PO BEDTIME Carvedilol [Coreg] 12.5 mg PO BID #60 tablet Folic Acid Tab 1 mg PO DAILY #30 tablet Chlorthalidone 25 mg PO DAILY #30 tablet Pantoprazole Tab [Protonix Tab] 40 mg PO BID #60 tablet Thiamine Tab [Vitamin B1 Tab] 100 mg PO 0800 - Follow Up or Referral Follow Up: Kenny Nieves DO [Physician] - - Forms/Instructions Exam - Constitutional Vitals: Period Temp Pulse Resp BP Sys/Haile Pulse Ox Last 24 Hr 97.4 F-98.0 F 67-88 14-20 89-140/49-96 98-100 Discharge Results Procedures and tests throughout hospitalization: Pending Orders 08/21/16 19:51 Blood Culture Stat 08/22/16 MRSA Surveillence, Inf Control Routine 08/23/16 04:00 Ammonia IN AM BMP w/ Mg [Basic Metabolic Panel w/Mg] IN AM CBC [Comp Blood Count Auto Diff] IN AM 08/24/16 04:00 BMP w/ Mg [Basic Metabolic Panel w/Mg] IN AM CBC [Comp Blood Count Auto Diff] IN AM Labs on day of discharge: Labs from last 24 hours 08/22/16 08/22/16 08/22/16 14:58 05:52 05:14 WBC RBC Hgb Hct MCV MCH MCHC RDW Plt Count MPV Neut % (Auto) Lymph % (Auto) [place] % (Auto) Eos % (Auto) Baso % (Auto) Neut # (Auto) Lymph # (Auto) [place] # (Auto) Eos # (Auto) Baso # (Auto) Immature Gran % Nucleated RBC % Immature Gran # Nucleated RBCs # INR PT Patient/Control Mix ABG pH ABG pCO2 ABG pO2 ABG HCO3 ABG Total CO2 ABG O2 Saturation ABG Base Excess FiO2 Sodium 141 Potassium 3.0 L 2.7 L Chloride 106 Carbon Dioxide 23 Anion Gap 14.7 BUN 12 Creatinine 0.50 L GFR Calculation 114 BUN/Creatinine Ratio 24.00 H Glucose 107 H POC Glucose 100 Calculated Osmolality 280.3 Calcium 8.5 Magnesium 1.7 L Total Bilirubin 0.70 AST 24 ALT 28 Alkaline Phosphatase 77 Ammonia 44 H B-Natriuretic Peptide Total Protein 5.7 L Albumin 3.1 L Globulin 2.6 Albumin/Globulin Ratio 1.1 Urine Color Urine Appearance Urine pH Ur Specific [place] Urine Protein Urine Glucose (UA) Urine Ketones Urine Blood Urine Nitrate Urine Bilirubin Urine Urobilinogen Urine Leukocytes Urine RBC Urine WBC Ur Squamous Epith Cells Urine Bacteria Hyaline Casts Urine Mucus Ur Culture Indicated? Salicylates Urine Opiates Screen Ur Barbiturates Screen Ur Phencyclidine Scrn U Amphetamine/Methamph U Benzodiazepines Scrn U Cocaine Metab Screen U Cannabinoids Screen 08/22/16 08/22/16 08/22/16 05:14 05:14 03:25 WBC 10.4 D RBC 3.84 Hgb 10.0 L Hct 30.7 L MCV 79.9 L MCH 26 L MCHC 32.6 RDW 14.9 Plt Count 350 MPV 10.2 Neut % (Auto) 65.7 Lymph % (Auto) 26.0 [place] % (Auto) 7.2 Eos % (Auto) 0.3 Baso % (Auto) 0.3 Neut # (Auto) 6.9 Lymph # (Auto) 2.7 [place] # (Auto) 0.8 Eos # (Auto) 0.0 Baso # (Auto) 0.0 Immature Gran % 0.5 Nucleated RBC % 0.0 Immature Gran # 0.05 Nucleated RBCs # 0.00 INR 1.1 PT Patient/Control Mix 11.2 ABG pH 7.506 H ABG pCO2 26.6 L ABG pO2 151.0 H ABG HCO3 23.5 ABG Total CO2 18.9 L ABG O2 Saturation 99.3 ABG Base Excess -1.1 FiO2 60.00 Sodium Potassium Chloride Carbon Dioxide Anion Gap BUN Creatinine GFR Calculation BUN/Creatinine Ratio Glucose POC Glucose Calculated Osmolality Calcium Magnesium Total Bilirubin AST ALT Alkaline Phosphatase Ammonia B-Natriuretic Peptide Total Protein Albumin Globulin Albumin/Globulin Ratio Urine Color Urine Appearance Urine pH Ur Specific [place] Urine Protein Urine Glucose (UA) Urine Ketones Urine Blood Urine Nitrate Urine Bilirubin Urine Urobilinogen Urine Leukocytes Urine RBC Urine WBC Ur Squamous Epith Cells Urine Bacteria Hyaline Casts Urine Mucus Ur Culture Indicated? Salicylates Urine Opiates Screen Ur Barbiturates Screen Ur Phencyclidine Scrn U Amphetamine/Methamph U Benzodiazepines Scrn U Cocaine Metab Screen U Cannabinoids Screen 08/21/16 08/21/16 08/21/16 23:55 19:51 19:51 WBC RBC Hgb Hct MCV MCH MCHC RDW Plt Count MPV Neut % (Auto) Lymph % (Auto) [place] % (Auto) Eos % (Auto) Baso % (Auto) Neut # (Auto) Lymph # (Auto) [place] # (Auto) Eos # (Auto) Baso # (Auto) Immature Gran % Nucleated RBC % Immature Gran # Nucleated RBCs # INR PT Patient/Control Mix ABG pH ABG pCO2 ABG pO2 ABG HCO3 ABG Total CO2 ABG O2 Saturation ABG Base Excess FiO2 Sodium Potassium Chloride Carbon Dioxide Anion Gap BUN Creatinine GFR Calculation BUN/Creatinine Ratio Glucose POC Glucose 139 H Calculated Osmolality Calcium Magnesium Total Bilirubin AST ALT Alkaline Phosphatase Ammonia B-Natriuretic Peptide 21 Total Protein Albumin Globulin Albumin/Globulin Ratio Urine Color Urine Appearance Urine pH Ur Specific [place] Urine Protein Urine Glucose (UA) Urine Ketones Urine Blood Urine Nitrate Urine Bilirubin Urine Urobilinogen Urine Leukocytes Urine RBC Urine WBC Ur Squamous Epith Cells Urine Bacteria Hyaline Casts Urine Mucus Ur Culture Indicated? Salicylates < 2.8 L Urine Opiates Screen Ur Barbiturates Screen Ur Phencyclidine Scrn U Amphetamine/Methamph U Benzodiazepines Scrn U Cocaine Metab Screen U Cannabinoids Screen 08/21/16 08/21/16 08/21/16 18:40 18:25 16:30 WBC RBC Hgb Hct MCV MCH MCHC RDW Plt Count MPV Neut % (Auto) Lymph % (Auto) [place] % (Auto) Eos % (Auto) Baso % (Auto) Neut # (Auto) Lymph # (Auto) [place] # (Auto) Eos # (Auto) Baso # (Auto) Immature Gran % Nucleated RBC % Immature Gran # Nucleated RBCs # INR PT Patient/Control Mix ABG pH 7.388 7.367 ABG pCO2 34.7 L 35.3 ABG pO2 101.2 H 264.4 H ABG HCO3 20.4 19.8 L ABG Total CO2 21.5 L 20.9 L ABG O2 Saturation 96.6 98.9 ABG Base Excess -3.9 L -4.8 L FiO2 60.00 Sodium Potassium Chloride Carbon Dioxide Anion Gap BUN Creatinine GFR Calculation BUN/Creatinine Ratio Glucose POC Glucose 176 H Calculated Osmolality Calcium Magnesium Total Bilirubin AST ALT Alkaline Phosphatase Ammonia B-Natriuretic Peptide Total Protein Albumin Globulin Albumin/Globulin Ratio Urine Color Urine Appearance Urine pH Ur Specific [place] Urine Protein Urine Glucose (UA) Urine Ketones Urine Blood Urine Nitrate Urine Bilirubin Urine Urobilinogen Urine Leukocytes Urine RBC Urine WBC Ur Squamous Epith Cells Urine Bacteria Hyaline Casts Urine Mucus Ur Culture Indicated? Salicylates Urine Opiates Screen Ur Barbiturates Screen Ur Phencyclidine Scrn U Amphetamine/Methamph U Benzodiazepines Scrn U Cocaine Metab Screen U Cannabinoids Screen 08/21/16 08/21/16 16:11 16:11 WBC RBC Hgb Hct MCV MCH MCHC RDW Plt Count MPV Neut % (Auto) Lymph % (Auto) [place] % (Auto) Eos % (Auto) Baso % (Auto) Neut # (Auto) Lymph # (Auto) [place] # (Auto) Eos # (Auto) Baso # (Auto) Immature Gran % Nucleated RBC % Immature Gran # Nucleated RBCs # INR PT Patient/Control Mix ABG pH ABG pCO2 ABG pO2 ABG HCO3 ABG Total CO2 ABG O2 Saturation ABG Base Excess FiO2 Sodium Potassium Chloride Carbon Dioxide Anion Gap BUN Creatinine GFR Calculation BUN/Creatinine Ratio Glucose POC Glucose Calculated Osmolality Calcium Magnesium Total Bilirubin AST ALT Alkaline Phosphatase Ammonia B-Natriuretic Peptide Total Protein Albumin Globulin Albumin/Globulin Ratio Urine Color Yellow Urine Appearance Slightly hazy Urine pH 5.0 Ur Specific [place] 1.017 Urine Protein 100 Urine Glucose (UA) Negative Urine Ketones Negative Urine Blood Negative Urine Nitrate Negative Urine Bilirubin Negative Urine Urobilinogen < 2.0 H Urine Leukocytes Negative Urine RBC 1 Urine WBC 3 Ur Squamous Epith Cells Occasional Urine Bacteria Occasional Hyaline Casts 8 Urine Mucus Occasional Ur Culture Indicated? Not indicated Salicylates Urine Opiates Screen Negative Ur Barbiturates Screen Negative Ur Phencyclidine Scrn Negative U Amphetamine/Methamph Negative U Benzodiazepines Scrn Negative U Cocaine Metab Screen Negative U Cannabinoids Screen Negative DS: Provider Date of admission: 08/21/16 15:58 Primary care physician: . No PCP Attending physician on admission: Vinod Oconnell MD Consults: 08/21/16 16:07 Consult to Case Mgmt/Social Srvs [CONS] Routine Reason for Case Mgmt/Social Srvs: Discharge Planning 08/21/16 18:01 Consult to Pharmacy [CONS] Routine Reason for Pharmacy Consult: Adjust Meds Renal Funct 08/21/16 18:21 Consult to Dietitian [CONS] Routine Reason for Dietitian: Dietary Consult 08/21/16 19:06 Consult to Pastoral Services [CONS] Routine Comment: Pastoral Screen: Request Maintenance Director Visit Pastoral Screen Source of Request: Family Discharging clinician: Vinod Oconnell MD Expected date of discharge: 08/22/16
[2016-08-22 17:00] VITALS: BP 155/87
[2016-08-24] MEDS ORDERED: PNEUMOCOCCAL VACCINE (23 VALENT) 0.5 ML VIAL IM ONE (09:00)
== END 2016-08-22 16:25 | disposition home or self-care (01) | DRG 917 ==
LOC: EDUNIT# → EDBD → N.ED 14:14 → SUATTDRO 15:58 → N.EDINP 15:58 → N.ICU 17:35
PROVIDERS: ADMIT Family Medicine; ATTEND Internal Medicine

== ENCOUNTER 2017-09-13 02:12 | Inpatient (IN) ==
[2017-09-13 03:09] LABS: Basophils # 0.1 10*3/uL (0.0-0.2); Basophils % 0.8 % (0.0-0.8); Eosinophils # 0.1 10*3/uL (0.0-0.87); Eosinophils % 1.2 % (0.00-10.9); Hematocrit 37.3 VOL% (35.7-47.0); Hemoglobin 12.2 GM/DL (12.0-16.0); Immature Granulocytes % 0.4 %; Immature Granulocytes Absolute 0.05 #; Lymphocytes # 4.4 10*3/uL (1.4-4.0); Lymphocytes % 36.6 % (21.3-54.2); Mean Corpuscular HGB Conc 32.7 GM/DL (32-36); Mean Corpuscular Hemoglobin 29 PG (27-34); Mean Corpuscular Volume 89.4 FL (87-102); Mean Platelet Volume 9.9 FL (9.6-12.0); Monocytes % 8.1 % (1.7-12.7); Neutrophils # 6.3 10*3/uL (1.4-7.4); Neutrophils % 52.9 % (38.7-73.9); Platelet Count 404 T/CUMM (130-400); Red Blood Count 4.17 MC/CUMM (3.8-5.5); Red Cell Distribution Width 14.1 % (9.3-17.3)
[2017-09-13 03:26] LABS: PT Patient Result 10.4 SECS; Partial Thromboplastin Time 24.3 SECS (0-40)
[2017-09-13 03:27] LABS: Alanine Aminotransferase 47 U/L (13-56); Albumin 3.6 G/DL (3.4-5.0); Alkaline Phosphatase 61 U/L (45-117); Aspartate Amino Transferase 40 U/L (0-37); Blood Urea Nitrogen 13 MG/DL (7-18); Calcium 8.8 MG/DL (8.5-10.1); Glucose 155 MG/DL (74-106); Osmolality,Calculated 277.7 MOS/KG (273-304); Potassium 3.5 MMOL/L (3.5-5.1); Sodium 138 MMOL/L (136-145); Total Protein 7.2 G/DL (6.4-8.3); Troponin I Only < 0.015 NG/ML (0.00-0.045)
[2017-09-13] MEDS ORDERED: SODIUM CHLORIDE 0.9% 1,000 ML IV PRN (03:47)
[2017-09-13] MEDS ORDERED: ALBUTEROL 2.5 MG/3 ML NEB RESP TX PRN (04:17)
[2017-09-13] MEDS ORDERED: DEXTROSE 50% 25 GM/50 ML VIAL IV PRN (05:01)
[2017-09-13] MEDS ORDERED: GLUCAGON 1 MG VIAL IM PRN (05:01)
[2017-09-13] MEDS ORDERED: DIAZEPAM 5 MG TABLET PO STA (05:14)
[2017-09-13 06:52] LABS: Hemoglobin 10.5 GM/DL (12.0-16.0)
[2017-09-13] MEDS: PROMETHAZINE 25 MG TABLET PO PRN ×3 (07:30→22:24)
[2017-09-13] MEDS: INSULIN REGULAR 100 UNIT/ML SUBCUT SCH ×4 (07:40→20:51)
[2017-09-13] MEDS ORDERED: Fluticasone/Umeclidin/Vilanter [Trelegy Ellipta 100-62.5-25] IH SCH (09:00)
[2017-09-13] MEDS: METOCLOPRAMIDE 10 MG/10 ML UDCUP PO SCH ×4 (09:14→20:41)
[2017-09-13] MEDS: MULTIVITAMIN (CENTRUM) TABLET PO SCH (09:16)
[2017-09-13] MEDS: FOLIC ACID 1 MG TABLET PO SCH (09:17)
[2017-09-13] MEDS: CARVEDILOL 12.5 MG TABLET PO SCH ×2 (09:17→20:43)
[2017-09-13] MEDS: CHLORTHALIDONE 25 MG TABLET PO SCH (09:19)
[2017-09-13] MEDS: FLUoxetine 20 MG CAPSULE PO SCH (09:20)
[2017-09-13] MEDS: MONTELUKAST 10 MG TABLET PO SCH (09:20)
[2017-09-13] MEDS ORDERED: PANTOPRAZOLE 40 MG TABLET PO ONE (09:23)
[2017-09-13] MEDS: METHOCARBAMOL 750 MG TABLET PO SCH ×4 (09:26→20:43)
[2017-09-13] MEDS: POTASSIUM CHLORIDE 20 MEQ TABLET PO SCH (09:26)
[2017-09-13] MEDS: PANTOPRAZOLE 40 MG VIAL IV SCH ×2 (09:27→20:46)
[2017-09-13] MEDS: ONDANSETRON 4 MG/2 ML VIAL IV PRN (09:30)
[2017-09-13] MEDS: prednisoLONE ACETATE 1% OPH SUSP 5 ML BOTTLE LEFT EYE SCH ×4 (09:33→20:54)
[2017-09-13] MEDS: THEOPHYLLINE ER 300 MG TABLET PO SCH ×2 (10:37→20:41)
[2017-09-13 13:47] LABS: Hematocrit 29.2 VOL% (35.7-47.0); Hemoglobin 9.8 GM/DL (12.0-16.0)
[2017-09-13] MEDS: OMEGA 3 ACID ETHYL ESTERS 1 GM CAPSULE PO SCH ×2 (15:54→20:44)
[2017-09-13] MEDS: MOXIFLOXACIN 0.5% OPH SOLN 3 ML BOTTLE LEFT EYE SCH ×4 (15:54→20:54)
[2017-09-13] MEDS: NEPAFENAC 0.1% OPH SOLN 3 ML BOTTLE LEFT EYE SCH ×2 (15:54→20:54)
[2017-09-13] MEDS: ALBUTEROL 0.4 MG/ML 30 ML/BOTTLE PO SCH ×2 (15:55→20:54)
[2017-09-13] MEDS: POLYETHYLENE GLYCOL POWDER 17 GM PACK PO SCH ×2 (17:13→20:48)
[2017-09-13] MEDS: traMADol 50 MG TABLET PO PRN (17:16)
[2017-09-13 18:55] LABS: Hematocrit 26.5 VOL% (35.7-47.0); Hemoglobin 8.8 GM/DL (12.0-16.0)
[2017-09-13] MEDS: LISINOPRIL 10 MG TABLET PO SCH (20:43)
[2017-09-13] MEDS: CETIRIZINE 10 MG TABLET PO SCH (20:43)
[2017-09-13] MEDS: GABAPENTIN 600 MG TABLET PO SCH (20:43)
[2017-09-13] MEDS: MULTIVITAMIN (BEROCCA) TABLET PO SCH (20:44)
[2017-09-14] MEDS: ONDANSETRON 4 MG/2 ML VIAL IV PRN ×3 (00:31→21:30)
[2017-09-14 01:39] LABS: Hematocrit 23.3 VOL% (35.7-47.0); Hemoglobin 7.8 GM/DL (12.0-16.0)
[2017-09-14] MEDS: INSULIN REGULAR 100 UNIT/ML SUBCUT SCH ×4 (08:42→21:16)
[2017-09-14] MEDS: METOCLOPRAMIDE 10 MG/10 ML UDCUP PO SCH ×2 (08:42→17:20)
[2017-09-14] MEDS: PROMETHAZINE 25 MG TABLET PO PRN (08:42)
[2017-09-14 09:12] LABS: Hematocrit 30.7 VOL% (35.7-47.0)
[2017-09-14 09:16] LABS: Hemoglobin 10.6 GM/DL (12.0-16.0)
[2017-09-14] MEDS: MONTELUKAST 10 MG TABLET PO SCH (09:39)
[2017-09-14] MEDS: THEOPHYLLINE ER 300 MG TABLET PO SCH ×2 (09:40→21:14)
[2017-09-14] MEDS: FLUoxetine 20 MG CAPSULE PO SCH (09:40)
[2017-09-14] MEDS: NEPAFENAC 0.1% OPH SOLN 3 ML BOTTLE LEFT EYE SCH (09:41)
[2017-09-14] MEDS: CHLORTHALIDONE 25 MG TABLET PO SCH (09:41)
[2017-09-14] MEDS: FOLIC ACID 1 MG TABLET PO SCH (09:41)
[2017-09-14] MEDS: OMEGA 3 ACID ETHYL ESTERS 1 GM CAPSULE PO SCH ×2 (09:41→21:15)
[2017-09-14] MEDS: MULTIVITAMIN (CENTRUM) TABLET PO SCH (09:41)
[2017-09-14] MEDS: CARVEDILOL 12.5 MG TABLET PO SCH ×2 (09:41→21:15)
[2017-09-14] MEDS: POTASSIUM CHLORIDE 20 MEQ TABLET PO SCH (09:42)
[2017-09-14] MEDS: METHOCARBAMOL 750 MG TABLET PO SCH ×4 (09:42→21:14)
[2017-09-14] MEDS: PANTOPRAZOLE 40 MG VIAL IV SCH ×2 (09:43→21:16)
[2017-09-14] MEDS: ALBUTEROL 0.4 MG/ML 30 ML/BOTTLE PO SCH ×3 (09:47→21:16)
[2017-09-14] MEDS: POLYETHYLENE GLYCOL POWDER 17 GM PACK PO SCH ×4 (09:58→21:15)
[2017-09-14] MEDS: prednisoLONE ACETATE 1% OPH SUSP 5 ML BOTTLE LEFT EYE SCH (10:52)
[2017-09-14] MEDS: MOXIFLOXACIN 0.5% OPH SOLN 3 ML BOTTLE LEFT EYE SCH (10:53)
[2017-09-14] MEDS: traMADol 50 MG TABLET PO PRN ×2 (11:07→23:12)
[2017-09-14] MEDS: CETIRIZINE 10 MG TABLET PO SCH (21:14)
[2017-09-14] MEDS: LISINOPRIL 10 MG TABLET PO SCH (21:14)
[2017-09-14] MEDS: MULTIVITAMIN (BEROCCA) TABLET PO SCH (21:14)
[2017-09-14] MEDS: GABAPENTIN 600 MG TABLET PO SCH (21:15)
[2017-09-15] MEDS ORDERED: ZALEPLON 5 MG CAPSULE PO PRN (02:58)
[2017-09-15 07:28] LABS: Basophils # 0.1 10*3/uL (0.0-0.2); Basophils % 0.6 % (0.0-0.8); Eosinophils # 0.1 10*3/uL (0.0-0.87); Eosinophils % 1.2 % (0.00-10.9); Hematocrit 31.4 VOL% (35.7-47.0); Hemoglobin 10.5 GM/DL (12.0-16.0); Immature Granulocytes % 1.7 %; Immature Granulocytes Absolute 0.17 #; Lymphocytes # 3.2 10*3/uL (1.4-4.0); Lymphocytes % 31.1 % (21.3-54.2); Mean Corpuscular HGB Conc 33.4 GM/DL (32-36); Mean Corpuscular Hemoglobin 29 PG (27-34); Mean Corpuscular Volume 86.7 FL (87-102); Mean Platelet Volume 9.7 FL (9.6-12.0); Monocytes # 0.8 10*3/uL (0.11-0.8); Monocytes % 7.3 % (1.7-12.7); NRBC # 0.02 10*3/uL; Neutrophils # 5.9 10*3/uL (1.4-7.4); Neutrophils % 58.1 % (38.7-73.9); Platelet Count 342 T/CUMM (130-400); Red Blood Count 3.62 MC/CUMM (3.8-5.5); Red Cell Distribution Width 14.9 % (9.3-17.3); White Blood Count 10.2 T/CUMM (4-12)
[2017-09-15] MEDS: METOCLOPRAMIDE 10 MG/10 ML UDCUP PO SCH ×3 (07:53→16:49)
[2017-09-15 07:55] LABS: Calcium 8.8 MG/DL (8.5-10.1); Potassium 2.9 MMOL/L (3.5-5.1)
[2017-09-15] MEDS ORDERED: POTASSIUM CHLORIDE 20 MEQ TABLET PO ONE (08:45)
[2017-09-15] MEDS: POTASSIUM CHLORIDE RIDER 10 MEQ in PREMIX 1 EACH IV SCH ×4 (09:29→16:11)
[2017-09-15] MEDS: FOLIC ACID 1 MG TABLET PO SCH (09:31)
[2017-09-15] MEDS: MULTIVITAMIN (CENTRUM) TABLET PO SCH (09:31)
[2017-09-15] MEDS: POTASSIUM CHLORIDE 20 MEQ TABLET PO SCH (09:31)
[2017-09-15] MEDS: THEOPHYLLINE ER 300 MG TABLET PO SCH (09:32)
[2017-09-15] MEDS: MONTELUKAST 10 MG TABLET PO SCH (09:32)
[2017-09-15] MEDS: FLUoxetine 20 MG CAPSULE PO SCH (09:32)
[2017-09-15] MEDS: CARVEDILOL 12.5 MG TABLET PO SCH (09:32)
[2017-09-15] MEDS: METHOCARBAMOL 750 MG TABLET PO SCH ×3 (09:32→17:04)
[2017-09-15] MEDS: OMEGA 3 ACID ETHYL ESTERS 1 GM CAPSULE PO SCH (09:33)
[2017-09-15] MEDS: INSULIN REGULAR 100 UNIT/ML SUBCUT SCH ×3 (09:33→16:49)
[2017-09-15] MEDS: CHLORTHALIDONE 25 MG TABLET PO SCH (09:33)
[2017-09-15] MEDS: ALBUTEROL 0.4 MG/ML 30 ML/BOTTLE PO SCH ×2 (09:34→15:02)
[2017-09-15] MEDS: traMADol 50 MG TABLET PO PRN (09:49)
[2017-09-15] MEDS: PROMETHAZINE 25 MG TABLET PO PRN (11:18)
[2017-09-15] MEDS: ONDANSETRON 4 MG/2 ML VIAL IV PRN (14:06)
[2017-09-15 16:21] VITALS: BP 110/58
[2017-09-15] MEDS ORDERED: PANTOPRAZOLE 40 MG TABLET PO SCH (16:30)
== END 2017-09-15 17:52 | disposition home or self-care (01) | DRG 920 ==
LOC: N.ED 02:12 → N.EDINP 03:44 → N.5E 14:38
PROVIDERS: ADMIT Internal Medicine; ATTEND Internal Medicine

== ENCOUNTER 2017-09-23 13:44 | Inpatient (IN) ==
[2017-09-23] MEDS ORDERED: ONDANSETRON 4 MG/2 ML VIAL IV STA ×2 (14:26→15:51)
[2017-09-23] MEDS ORDERED: SODIUM CHLORIDE 0.9% 1,000 ML IV STA (14:26)
[2017-09-23] MEDS ORDERED: PROMETHAZINE 25 MG/1 ML VIAL IM STA ×2 (14:27→17:14)
[2017-09-23 15:52] LABS: Basophils # 0.1 10*3/uL (0.0-0.2); Basophils % 0.7 % (0.0-0.8); Eosinophils # 0.1 10*3/uL (0.0-0.87); Eosinophils % 0.3 % (0.00-10.9); Hematocrit 31.1 VOL% (35.7-47.0); Hemoglobin 10.7 GM/DL (12.0-16.0); Immature Granulocytes % 0.5 %; Immature Granulocytes Absolute 0.08 #; Lymphocytes % 13.4 % (21.3-54.2); Mean Corpuscular HGB Conc 34.4 GM/DL (32-36); Mean Corpuscular Hemoglobin 29 PG (27-34); Mean Corpuscular Volume 85.4 FL (87-102); Mean Platelet Volume 9.2 FL (9.6-12.0); Monocytes # 0.9 10*3/uL (0.11-0.8); Neutrophils # 11.7 10*3/uL (1.4-7.4); Neutrophils % 79.1 % (38.7-73.9); Platelet Count 566 T/CUMM (130-400); Red Blood Count 3.64 MC/CUMM (3.8-5.5); Red Cell Distribution Width 14.3 % (9.3-17.3); White Blood Count 14.8 T/CUMM (4-12)
[2017-09-23 15:59] LABS: Apearance,Urine CLEAR (Clear); Bilirubin,Urine Negative (Negative); Blood, Urine Negative (Negative); Glucose,Urine (UA) 150 mg/dL (Negative); Ketones,Urine 20 mg/dL (Negative); Mucus,Urine Occasional /LPF (Occasional); Nitrite,Urine Negative (Negative); Protein,Urine 30 MG/DL; RBC,Urine <1 /HPF (0-4); Squamous Epithelial Cell,Urine Occasional /HPF (0-10); Urine Color Yellow (Yellow); Urine Specific Gravity 1.012 (1.001-1.035); Urine Urobilinogen < 2.0 EU/DL (0.2-1.0); WBC,Urine 1 /HPF (0-6)
[2017-09-23] MEDS ORDERED: PROCHLORPERAZINE 25 MG SUPP RECTAL STA (16:16)
[2017-09-23 16:23] LABS: Albumin 3.6 G/DL (3.4-5.0); Bilirubin,Total 0.4 MG/DL (0.2-1.0); Calcium 8.8 MG/DL (8.5-10.1); Osmolality,Calculated 285.3 MOS/KG (273-304); Potassium 2.7 MMOL/L (3.5-5.1); Total Protein 7.5 G/DL (6.4-8.3)
[2017-09-23 16:38] LABS: Lactic Acid 4.2 MMOL/L (0.4-2.0)
[2017-09-23] MEDS ORDERED: ACETAMINOPHEN 325 MG TABLET PO PRN (17:16)
[2017-09-23] MEDS ORDERED: SODIUM CHLORIDE 0.9% 2,650 ML IV ONE (17:20)
[2017-09-23] MEDS ORDERED: VANCOMYCIN INJ 1,250 MG in SODIUM CHLORIDE 0.9% 250 ML IV SCH (18:00)
[2017-09-23] MEDS ORDERED: SODIUM CHLORIDE 0.9% 1,000 ML IV SCH (18:00)
[2017-09-23] MEDS ORDERED: PROMETHAZINE 25 MG TABLET PO PRN (18:14)
[2017-09-23] MEDS ORDERED: METHOCARBAMOL 750 MG TABLET PO PRN (18:14)
[2017-09-23] MEDS ORDERED: ALBUTEROL 2.5 MG/3 ML NEB RESP TX PRN (18:14)
[2017-09-23] MEDS ORDERED: GLUCAGON 1 MG VIAL IM PRN (18:17)
[2017-09-23] MEDS ORDERED: DEXTROSE 50% 25 GM/50 ML VIAL IV PRN (18:17)
[2017-09-23] MEDS: POTASSIUM CHLORIDE RIDER 10 MEQ in PREMIX 1 EACH IV SCH ×2 (18:28→23:15)
[2017-09-23] MEDS: SODIUM CHLOR 0.9% KCL 40 MEQ 40 MEQ/1,000 ML BAG IV SCH (18:28)
[2017-09-23] MEDS: ONDANSETRON 4 MG/2 ML VIAL IV PRN (18:30)
[2017-09-23] MEDS ORDERED: AZITHROMYCIN INJ 500 MG in SODIUM CHLORIDE 0.9% 250 ML IV SCH (18:30)
[2017-09-23] MEDS ORDERED: hydrALAZINE 20 MG/1 ML VIAL IV PRN (18:45)
[2017-09-23] MEDS ORDERED: LORazepam 2 MG/1 ML VIAL IV ONE (19:40)
[2017-09-23] MEDS: PROMETHAZINE 25 MG/1 ML VIAL IM PRN (22:12)
[2017-09-23] MEDS: LISINOPRIL 10 MG TABLET PO SCH (22:15)
[2017-09-23] MEDS: CARVEDILOL 12.5 MG TABLET PO SCH (22:15)
[2017-09-23] MEDS: THEOPHYLLINE ER 300 MG TABLET PO SCH (22:16)
[2017-09-23] MEDS: METOCLOPRAMIDE 10 MG/10 ML UDCUP PO SCH (22:16)
[2017-09-23] MEDS: ALBUTEROL 0.4 MG/ML 30 ML/BOTTLE PO SCH (22:18)
[2017-09-23] MEDS: GABAPENTIN 600 MG TABLET PO SCH (22:41)
[2017-09-23] MEDS: CETIRIZINE 10 MG TABLET PO SCH (22:41)
[2017-09-23] MEDS: PANTOPRAZOLE 40 MG TABLET PO SCH (22:41)
[2017-09-23] MEDS: MULTIVITAMIN (BEROCCA) TABLET PO SCH (22:42)
[2017-09-23] MEDS: OMEGA 3 ACID ETHYL ESTERS 1 GM CAPSULE PO SCH (22:42)
[2017-09-24] MEDS: POTASSIUM CHLORIDE RIDER 10 MEQ in PREMIX 1 EACH IV SCH ×2 (00:27→01:55)
[2017-09-24] MEDS: INSULIN REGULAR 100 UNIT/ML SUBCUT SCH ×4 (01:20→19:20)
[2017-09-24] MEDS: ONDANSETRON 4 MG/2 ML VIAL IV PRN ×4 (03:30→23:16)
[2017-09-24 05:37] LABS: Basophils % 0.2 % (0.0-0.8); Hematocrit 26.6 VOL% (35.7-47.0); Hemoglobin 8.8 GM/DL (12.0-16.0); Immature Granulocytes % 0.5 %; Immature Granulocytes Absolute 0.06 #; Lymphocytes # 2.1 10*3/uL (1.4-4.0); Lymphocytes % 16.7 % (21.3-54.2); Mean Corpuscular HGB Conc 33.1 GM/DL (32-36); Mean Corpuscular Hemoglobin 29 PG (27-34); Mean Corpuscular Volume 86.9 FL (87-102); Mean Platelet Volume 9.3 FL (9.6-12.0); Monocytes # 1.1 10*3/uL (0.11-0.8); Monocytes % 9.2 % (1.7-12.7); Neutrophils # 9.1 10*3/uL (1.4-7.4); Neutrophils % 73.4 % (38.7-73.9); Platelet Count 425 T/CUMM (130-400); Red Blood Count 3.06 MC/CUMM (3.8-5.5); Red Cell Distribution Width 14.6 % (9.3-17.3); White Blood Count 12.4 T/CUMM (4-12)
[2017-09-24] MEDS: PROMETHAZINE 25 MG/1 ML VIAL IM PRN ×2 (05:38→17:07)
[2017-09-24 06:16] LABS: Calcium 7.6 MG/DL (8.5-10.1); Osmolality,Calculated 281.3 MOS/KG (273-304)
[2017-09-24] MEDS: PANTOPRAZOLE 40 MG TABLET PO SCH ×2 (08:47→21:05)
[2017-09-24] MEDS: ASPIRIN EC 81 MG TABLET PO SCH (08:47)
[2017-09-24] MEDS: MONTELUKAST 10 MG TABLET PO SCH (08:47)
[2017-09-24] MEDS: CARVEDILOL 12.5 MG TABLET PO SCH ×2 (08:47→20:50)
[2017-09-24] MEDS: FLUoxetine 20 MG CAPSULE PO SCH (08:48)
[2017-09-24] MEDS: THEOPHYLLINE ER 300 MG TABLET PO SCH ×2 (08:49→20:51)
[2017-09-24] MEDS: OMEGA 3 ACID ETHYL ESTERS 1 GM CAPSULE PO SCH ×2 (08:50→20:50)
[2017-09-24] MEDS: METOCLOPRAMIDE 10 MG/10 ML UDCUP PO SCH ×4 (08:52→20:51)
[2017-09-24] MEDS: SODIUM CHLOR 0.9% KCL 40 MEQ 40 MEQ/1,000 ML BAG IV SCH ×4 (08:54→19:21)
[2017-09-24] MEDS: ALBUTEROL 0.4 MG/ML 30 ML/BOTTLE PO SCH ×3 (08:57→20:48)
[2017-09-24] MEDS ORDERED: MULTIVITAMIN (CENTRUM) TABLET PO SCH (09:00)
[2017-09-24] MEDS ORDERED: CHLORTHALIDONE 25 MG TABLET PO SCH (09:00)
[2017-09-24] MEDS ORDERED: NON-FORMULARY MEDICATION (Fluticasone/Umeclidin/Vilanter [Trelegy Ellipta 100-62.5-25] 1 E IH SCH (09:00)
[2017-09-24] MEDS ORDERED: PANTOPRAZOLE 40 MG TABLET PO SCH (09:00)
[2017-09-24] MEDS: POTASSIUM CHLORIDE 20 MEQ TABLET PO PRN ×2 (13:05→15:49)
[2017-09-24] MEDS: LORazepam 2 MG/1 ML VIAL IV PRN ×2 (13:17→19:56)
[2017-09-24] MEDS ORDERED: MAGNESIUM SULF RIDER 2 GM in PREMIX 1 EACH IV PRN (14:23)
[2017-09-24] MEDS ORDERED: MAGNESIUM SULF RIDER 4 GM in PREMIX 1 EACH IV PRN (14:23)
[2017-09-24] MEDS: NEPAFENAC 0.1% OPH SOLN 3 ML BOTTLE RIGHT EYE SCH ×2 (15:56→20:49)
[2017-09-24] MEDS ORDERED: AMPICILLIN/SULBACTAM 1,500 MG in SODIUM CHLORIDE 0.9% 100 ML IV SCH (17:00)
[2017-09-24] MEDS: MOXIFLOXACIN 0.5% OPH SOLN 3 ML BOTTLE RIGHT EYE SCH ×2 (17:09→20:50)
[2017-09-24] MEDS: prednisoLONE ACETATE 1% OPH SUSP 5 ML BOTTLE RIGHT EYE SCH ×2 (17:09→20:49)
[2017-09-24] MEDS: AZITHROMYCIN INJ 500 MG in SODIUM CHLORIDE 0.9% 250 ML IV SCH (18:27)
[2017-09-24] MEDS: POTASSIUM CHLORIDE RIDER 10 MEQ in PREMIX 1 EACH IV PRN (19:27)
[2017-09-24] MEDS: GABAPENTIN 600 MG TABLET PO SCH (20:50)
[2017-09-24] MEDS: MULTIVITAMIN (BEROCCA) TABLET PO SCH (20:50)
[2017-09-24] MEDS: CETIRIZINE 10 MG TABLET PO SCH (20:51)
[2017-09-24] MEDS: LISINOPRIL 10 MG TABLET PO SCH (20:51)
[2017-09-24] MEDS ORDERED: NITROGLYCERIN SL 0.4 MG TABLET SL ONE (22:17)
[2017-09-24] MEDS ORDERED: FUROSEMIDE 40 MG/4 ML VIAL ONE (22:50)
[2017-09-24] MEDS ORDERED: FUROSEMIDE 40 MG/4 ML VIAL IV ONE (22:50)
[2017-09-24] MEDS ORDERED: ALUM/MAG/SIMETH/LIDO VISC 1:1 30 ML BOTTLE PO ONE (23:00)
[2017-09-24] MEDS ORDERED: POTASSIUM CHLORIDE 20 MEQ TABLET PO ONE (23:37)
[2017-09-24 23:42] LABS: Apearance,Urine Slightly Hazy (Clear); Bilirubin,Urine Negative (Negative); Blood, Urine Negative (Negative); Glucose,Urine (UA) Negative (Negative); Hyaline Casts,Urine 37 /LPF (0-3); Ketones,Urine Negative (Negative); Mucus,Urine Occasional /LPF (Occasional); Nitrite,Urine Negative (Negative); Protein,Urine 30 MG/DL; RBC,Urine <1 /HPF (0-4); Squamous Epithelial Cell,Urine Few /HPF (0-10); Urine Color Yellow (Yellow); Urine Urobilinogen < 2.0 EU/DL (0.2-1.0); WBC,Urine 1 /HPF (0-6)
[2017-09-25] MEDS: LORazepam 2 MG/1 ML VIAL IV PRN ×2 (00:03→06:01)
[2017-09-25] MEDS: PROMETHAZINE 25 MG/1 ML VIAL IM PRN (00:04)
[2017-09-25] MEDS: INSULIN REGULAR 100 UNIT/ML SUBCUT SCH ×4 (00:33→18:29)
[2017-09-25] MEDS: SODIUM CHLOR 0.9% KCL 40 MEQ 40 MEQ/1,000 ML BAG IV SCH (01:57)
[2017-09-25] MEDS: ONDANSETRON 4 MG/2 ML VIAL IV PRN ×3 (03:25→20:25)
[2017-09-25 05:16] LABS: Basophils # 0.1 10*3/uL (0.0-0.2); Basophils % 0.5 % (0.0-0.8); Eosinophils % 0.1 % (0.00-10.9); Hematocrit 27.7 VOL% (35.7-47.0); Immature Granulocytes % 0.4 %; Immature Granulocytes Absolute 0.05 #; Lymphocytes # 2.2 10*3/uL (1.4-4.0); Lymphocytes % 17.7 % (21.3-54.2); Mean Corpuscular HGB Conc 32.5 GM/DL (32-36); Mean Corpuscular Hemoglobin 29 PG (27-34); Mean Corpuscular Volume 88.8 FL (87-102); Mean Platelet Volume 10.4 FL (9.6-12.0); Monocytes # 1.2 10*3/uL (0.11-0.8); NRBC # 0.02 10*3/uL; Neutrophils # 8.8 10*3/uL (1.4-7.4); Neutrophils % 71.3 % (38.7-73.9); Platelet Count 339 T/CUMM (130-400); Red Blood Count 3.12 MC/CUMM (3.8-5.5); Red Cell Distribution Width 14.9 % (9.3-17.3); White Blood Count 12.4 T/CUMM (4-12)
[2017-09-25 06:10] LABS: Osmolality,Calculated 278.5 MOS/KG (273-304); Potassium 3.5 MMOL/L (3.5-5.1)
[2017-09-25 07:14] LABS: Hypochromasia 1+; Macrocytosis 2+; Polychromasia Slight
[2017-09-25] MEDS: METOCLOPRAMIDE 10 MG/10 ML UDCUP PO SCH ×4 (07:33→20:30)
[2017-09-25] MEDS ORDERED: POTASSIUM CHLORIDE 20 MEQ TABLET PO SCH (09:00)
[2017-09-25] MEDS: THIAMINE 200 MG/2 ML VIAL IV SCH (10:25)
[2017-09-25] MEDS: FUROSEMIDE 40 MG/4 ML VIAL IV SCH (10:25)
[2017-09-25] MEDS: ASPIRIN EC 81 MG TABLET PO SCH (10:26)
[2017-09-25] MEDS: MONTELUKAST 10 MG TABLET PO SCH (10:27)
[2017-09-25] MEDS: THEOPHYLLINE ER 300 MG TABLET PO SCH ×2 (10:27→20:29)
[2017-09-25] MEDS: CARVEDILOL 12.5 MG TABLET PO SCH ×2 (10:28→20:30)
[2017-09-25] MEDS: FLUoxetine 20 MG CAPSULE PO SCH (10:28)
[2017-09-25] MEDS: PANTOPRAZOLE 40 MG TABLET PO SCH ×2 (10:28→20:30)
[2017-09-25] MEDS: OMEGA 3 ACID ETHYL ESTERS 1 GM CAPSULE PO SCH ×2 (10:28→20:28)
[2017-09-25] MEDS: ALBUTEROL 0.4 MG/ML 30 ML/BOTTLE PO SCH ×3 (10:28→20:34)
[2017-09-25] MEDS: POTASSIUM CHLORIDE 20 MEQ TABLET PO SCH ×2 (10:28→20:29)
[2017-09-25] MEDS: MOXIFLOXACIN 0.5% OPH SOLN 3 ML BOTTLE RIGHT EYE SCH ×4 (10:29→20:35)
[2017-09-25] MEDS: prednisoLONE ACETATE 1% OPH SUSP 5 ML BOTTLE RIGHT EYE SCH ×4 (10:29→20:39)
[2017-09-25] MEDS: NEPAFENAC 0.1% OPH SOLN 3 ML BOTTLE RIGHT EYE SCH ×3 (10:29→20:38)
[2017-09-25] MEDS: LORazepam 1 MG TABLET PO PRN (14:34)
[2017-09-25] MEDS ORDERED: LOPERAMIDE 2 MG CAPSULE PO PRN (15:13)
[2017-09-25] MEDS: ERYTHROMYCIN INJ 125 MG in SODIUM CHLORIDE 0.9% 100 ML IV SCH ×2 (15:52→15:53)
[2017-09-25] MEDS: AZITHROMYCIN INJ 500 MG in SODIUM CHLORIDE 0.9% 250 ML IV SCH (17:45)
[2017-09-25] MEDS: MULTIVITAMIN (BEROCCA) TABLET PO SCH (20:28)
[2017-09-25] MEDS: GABAPENTIN 600 MG TABLET PO SCH (20:29)
[2017-09-25] MEDS: CETIRIZINE 10 MG TABLET PO SCH (20:30)
[2017-09-25] MEDS: LISINOPRIL 10 MG TABLET PO SCH (20:30)
[2017-09-25] MEDS ORDERED: ZALEPLON 5 MG CAPSULE PO ONE (23:15)
[2017-09-26] MEDS: LORazepam 1 MG TABLET PO PRN ×2 (00:48→06:47)
[2017-09-26] MEDS: INSULIN REGULAR 100 UNIT/ML SUBCUT SCH ×4 (00:49→17:51)
[2017-09-26 07:22] LABS: Osmolality,Calculated 279.4 MOS/KG (273-304); Potassium 2.9 MMOL/L (3.5-5.1)
[2017-09-26] MEDS: METOCLOPRAMIDE 10 MG/10 ML UDCUP PO SCH ×4 (07:52→20:54)
[2017-09-26] MEDS: ASPIRIN EC 81 MG TABLET PO SCH (08:48)
[2017-09-26] MEDS: ALBUTEROL 0.4 MG/ML 30 ML/BOTTLE PO SCH ×3 (08:48→20:55)
[2017-09-26] MEDS: NYSTATIN 500,000 UNIT/5 ML UDCUP SWISH/SWAL SCH ×4 (08:48→20:52)
[2017-09-26] MEDS: MONTELUKAST 10 MG TABLET PO SCH (08:49)
[2017-09-26] MEDS: OMEGA 3 ACID ETHYL ESTERS 1 GM CAPSULE PO SCH ×2 (08:49→20:52)
[2017-09-26] MEDS: POTASSIUM CHLORIDE 20 MEQ TABLET PO SCH ×2 (08:49→20:55)
[2017-09-26] MEDS: FLUoxetine 20 MG CAPSULE PO SCH (08:49)
[2017-09-26] MEDS: THEOPHYLLINE ER 300 MG TABLET PO SCH ×2 (08:49→20:54)
[2017-09-26] MEDS: CARVEDILOL 12.5 MG TABLET PO SCH ×2 (08:49→20:53)
[2017-09-26] MEDS: PANTOPRAZOLE 40 MG TABLET PO SCH ×2 (08:49→20:54)
[2017-09-26] MEDS: PROMETHAZINE 25 MG/1 ML VIAL IM PRN ×2 (08:54→18:08)
[2017-09-26] MEDS: FUROSEMIDE 40 MG/4 ML VIAL IV SCH (08:59)
[2017-09-26] MEDS: THIAMINE 200 MG/2 ML VIAL IV SCH (09:02)
[2017-09-26] MEDS: NEPAFENAC 0.1% OPH SOLN 3 ML BOTTLE RIGHT EYE SCH ×3 (09:08→20:56)
[2017-09-26] MEDS: MOXIFLOXACIN 0.5% OPH SOLN 3 ML BOTTLE RIGHT EYE SCH ×4 (09:08→20:56)
[2017-09-26] MEDS: prednisoLONE ACETATE 1% OPH SUSP 5 ML BOTTLE RIGHT EYE SCH ×4 (09:08→20:56)
[2017-09-26] MEDS: POTASSIUM CHLORIDE RIDER 10 MEQ in PREMIX 1 EACH IV PRN ×5 (09:13→19:53)
[2017-09-26] MEDS: LORazepam 1 MG TABLET PO SCH ×3 (12:18→23:50)
[2017-09-26] MEDS: ONDANSETRON 4 MG/2 ML VIAL IV PRN (14:48)
[2017-09-26] MEDS: CETIRIZINE 10 MG TABLET PO SCH (20:52)
[2017-09-26] MEDS: MULTIVITAMIN (BEROCCA) TABLET PO SCH (20:52)
[2017-09-26] MEDS: ZALEPLON 5 MG CAPSULE PO PRN (20:53)
[2017-09-26] MEDS: GABAPENTIN 600 MG TABLET PO SCH (20:53)
[2017-09-26] MEDS: LISINOPRIL 10 MG TABLET PO SCH (20:54)
[2017-09-26] MEDS: SODIUM CHLOR 0.9% KCL 40 MEQ 40 MEQ/1,000 ML BAG IV SCH (22:26)
[2017-09-26] MEDS: traMADol 50 MG TABLET PO PRN (23:22)
[2017-09-27] MEDS: INSULIN REGULAR 100 UNIT/ML SUBCUT SCH ×4 (00:48→18:27)
[2017-09-27] MEDS: SODIUM CHLOR 0.9% KCL 40 MEQ 40 MEQ/1,000 ML BAG IV SCH ×2 (01:02→17:46)
[2017-09-27 05:10] LABS: Basophils # 0.1 10*3/uL (0.0-0.2); Eosinophils # 0.4 10*3/uL (0.0-0.87); Eosinophils % 4.5 % (0.00-10.9); Hematocrit 33.1 VOL% (35.7-47.0); Hemoglobin 10.2 GM/DL (12.0-16.0); Immature Granulocytes % 0.3 %; Immature Granulocytes Absolute 0.03 #; Lymphocytes % 31.4 % (21.3-54.2); Mean Corpuscular HGB Conc 30.8 GM/DL (32-36); Mean Corpuscular Hemoglobin 28 PG (27-34); Mean Corpuscular Volume 92.2 FL (87-102); Mean Platelet Volume 9.2 FL (9.6-12.0); Monocytes # 0.8 10*3/uL (0.11-0.8); Monocytes % 8.1 % (1.7-12.7); Neutrophils # 5.3 10*3/uL (1.4-7.4); Neutrophils % 54.7 % (38.7-73.9); Platelet Count 416 T/CUMM (130-400); Red Blood Count 3.59 MC/CUMM (3.8-5.5); Red Cell Distribution Width 14.6 % (9.3-17.3); White Blood Count 9.6 T/CUMM (4-12)
[2017-09-27] MEDS: LORazepam 1 MG TABLET PO SCH ×3 (06:13→18:27)
[2017-09-27] MEDS: traMADol 50 MG TABLET PO PRN ×3 (06:15→18:28)
[2017-09-27] MEDS ORDERED: NITROGLYCERIN SL 0.4 MG TABLET SL ONE (07:31)
[2017-09-27] MEDS: METOCLOPRAMIDE 10 MG/10 ML UDCUP PO SCH ×4 (07:45→20:53)
[2017-09-27] MEDS: CARVEDILOL 12.5 MG TABLET PO SCH ×2 (09:02→20:52)
[2017-09-27] MEDS: ASPIRIN EC 81 MG TABLET PO SCH (09:02)
[2017-09-27] MEDS: POTASSIUM CHLORIDE 20 MEQ TABLET PO SCH ×2 (09:02→20:52)
[2017-09-27] MEDS: PANTOPRAZOLE 40 MG TABLET PO SCH ×2 (09:02→20:52)
[2017-09-27] MEDS: OMEGA 3 ACID ETHYL ESTERS 1 GM CAPSULE PO SCH ×2 (09:03→20:52)
[2017-09-27] MEDS: FLUoxetine 20 MG CAPSULE PO SCH (09:03)
[2017-09-27] MEDS: THEOPHYLLINE ER 300 MG TABLET PO SCH ×2 (09:03→20:52)
[2017-09-27] MEDS: MONTELUKAST 10 MG TABLET PO SCH (09:03)
[2017-09-27] MEDS: THIAMINE 200 MG/2 ML VIAL IV SCH (09:03)
[2017-09-27] MEDS: NYSTATIN 500,000 UNIT/5 ML UDCUP SWISH/SWAL SCH ×4 (09:04→20:52)
[2017-09-27] MEDS: FUROSEMIDE 40 MG/4 ML VIAL IV SCH (09:04)
[2017-09-27] MEDS: ALBUTEROL 0.4 MG/ML 30 ML/BOTTLE PO SCH ×3 (09:04→20:57)
[2017-09-27] MEDS: MOXIFLOXACIN 0.5% OPH SOLN 3 ML BOTTLE RIGHT EYE SCH ×4 (09:05→20:57)
[2017-09-27] MEDS: NEPAFENAC 0.1% OPH SOLN 3 ML BOTTLE RIGHT EYE SCH ×3 (09:06→20:57)
[2017-09-27] MEDS: prednisoLONE ACETATE 1% OPH SUSP 5 ML BOTTLE RIGHT EYE SCH ×4 (09:06→20:57)
[2017-09-27] MEDS: PROMETHAZINE 25 MG/1 ML VIAL IM PRN (10:56)
[2017-09-27] MEDS: MULTIVITAMIN (BEROCCA) TABLET PO SCH (20:52)
[2017-09-27] MEDS: CETIRIZINE 10 MG TABLET PO SCH (20:52)
[2017-09-27] MEDS: ZALEPLON 5 MG CAPSULE PO PRN (20:52)
[2017-09-27] MEDS: LISINOPRIL 10 MG TABLET PO SCH (20:52)
[2017-09-27] MEDS: GABAPENTIN 600 MG TABLET PO SCH (20:52)
[2017-09-28] MEDS: INSULIN REGULAR 100 UNIT/ML SUBCUT SCH ×3 (00:43→11:43)
[2017-09-28] MEDS: LORazepam 1 MG TABLET PO SCH ×3 (00:43→11:43)
[2017-09-28] MEDS: traMADol 50 MG TABLET PO PRN ×2 (00:44→11:43)
[2017-09-28] MEDS: PROMETHAZINE 25 MG/1 ML VIAL IM PRN ×2 (03:30→09:56)
[2017-09-28] MEDS ORDERED: MYLANTA/LIDO VISC/NYST 180 ML BOTTLE SWISH/SWAL PRN (08:59)
[2017-09-28] MEDS: THIAMINE 200 MG/2 ML VIAL IV SCH (09:49)
[2017-09-28] MEDS: FUROSEMIDE 40 MG/4 ML VIAL IV SCH (09:49)
[2017-09-28] MEDS: METOCLOPRAMIDE 10 MG/10 ML UDCUP PO SCH ×2 (09:56→11:43)
[2017-09-28] MEDS: NYSTATIN 500,000 UNIT/5 ML UDCUP SWISH/SWAL SCH ×2 (09:56→13:54)
[2017-09-28] MEDS: THEOPHYLLINE ER 300 MG TABLET PO SCH (09:56)
[2017-09-28] MEDS: NEPAFENAC 0.1% OPH SOLN 3 ML BOTTLE RIGHT EYE SCH (09:57)
[2017-09-28] MEDS: OMEGA 3 ACID ETHYL ESTERS 1 GM CAPSULE PO SCH (09:57)
[2017-09-28] MEDS: POTASSIUM CHLORIDE 20 MEQ TABLET PO SCH (09:57)
[2017-09-28] MEDS: MOXIFLOXACIN 0.5% OPH SOLN 3 ML BOTTLE RIGHT EYE SCH ×2 (09:57→13:55)
[2017-09-28] MEDS: FLUoxetine 20 MG CAPSULE PO SCH (09:57)
[2017-09-28] MEDS: prednisoLONE ACETATE 1% OPH SUSP 5 ML BOTTLE RIGHT EYE SCH ×2 (09:57→13:55)
[2017-09-28] MEDS: MONTELUKAST 10 MG TABLET PO SCH (09:57)
[2017-09-28] MEDS: ASPIRIN EC 81 MG TABLET PO SCH ×2 (09:57→10:00)
[2017-09-28] MEDS: PANTOPRAZOLE 40 MG TABLET PO SCH (09:57)
[2017-09-28] MEDS: CARVEDILOL 12.5 MG TABLET PO SCH (09:57)
[2017-09-28] MEDS: ALBUTEROL 0.4 MG/ML 30 ML/BOTTLE PO SCH (09:59)
[2017-09-28 11:33] VITALS: BP 147/71
[2017-09-28] MEDS: SODIUM CHLOR 0.9% KCL 40 MEQ 40 MEQ/1,000 ML BAG IV SCH (13:55)
== END 2017-09-28 15:35 | disposition home or self-care (01) | DRG 73 ==
LOC: N.ED 13:44 → N.EDINP 17:16 → SUATTDRO 17:16 → N.2E 17:39
PROVIDERS: ADMIT Internal Medicine Cardiovascular Disease; ATTEND Internal Medicine

== ENCOUNTER 2017-11-25 11:37 | Observation (INO) ==
[2017-11-25] MEDS ORDERED: LORazepam 2 MG/1 ML VIAL IV STA (12:05)
[2017-11-25] MEDS ORDERED: ONDANSETRON 4 MG/2 ML VIAL IV STA ×2 (12:05→16:04)
[2017-11-25] MEDS ORDERED: SODIUM CHLORIDE 0.9% 1,000 ML IV STA (12:05)
[2017-11-25 12:26] LABS: Basophils # 0.2 10*3/uL (0.0-0.2); Basophils % 1.4 % (0.0-0.8); Eosinophils % 0.3 % (0.00-10.9); Hematocrit 39.5 VOL% (35.7-47.0); Hemoglobin 12.4 GM/DL (12.0-16.0); Immature Granulocytes % 0.5 %; Immature Granulocytes Absolute 0.06 #; Lymphocytes # 1.8 10*3/uL (1.4-4.0); Lymphocytes % 16.2 % (21.3-54.2); Mean Corpuscular HGB Conc 31.4 GM/DL (32-36); Mean Corpuscular Hemoglobin 26 PG (27-34); Mean Corpuscular Volume 82.5 FL (87-102); Mean Platelet Volume 9.2 FL (9.6-12.0); Monocytes # 0.6 10*3/uL (0.11-0.8); Monocytes % 5.7 % (1.7-12.7); Neutrophils # 8.6 10*3/uL (1.4-7.4); Neutrophils % 75.9 % (38.7-73.9); Platelet Count 367 T/CUMM (130-400); Red Blood Count 4.79 MC/CUMM (3.8-5.5); Red Cell Distribution Width 16.7 % (9.3-17.3); White Blood Count 11.3 T/CUMM (4-12)
[2017-11-25 12:57] LABS: Albumin 3.9 G/DL (3.4-5.0); Bilirubin,Total 0.5 MG/DL (0.2-1.0); Calcium 8.9 MG/DL (8.5-10.1); Osmolality,Calculated 276.8 MOS/KG (273-304); Potassium 2.9 MMOL/L (3.5-5.1); Total Protein 7.8 G/DL (6.4-8.3)
[2017-11-25 13:54] LABS: Apearance,Urine CLEAR (Clear); Bilirubin,Urine Negative (Negative); Blood, Urine Negative (Negative); Glucose,Urine (UA) Negative (Negative); Ketones,Urine 5 mg/dL (Negative); Nitrite,Urine Negative (Negative); Protein,Urine Negative; RBC,Urine <1 /HPF (0-4); Squamous Epithelial Cell,Urine Occasional /HPF (0-10); Urine Color Straw (Yellow); Urine Specific Gravity 1.006 (1.001-1.035); Urine Urobilinogen < 2.0 EU/DL (0.2-1.0); WBC,Urine <1 /HPF (0-6)
[2017-11-25 14:02] LABS: Barbiturates Screen,Urine Negative (Negative); Benzodiazepines Screen,Urine Negative (Negative); Cannabinoid Screen,Urine Negative (Negative); Opiate Screen,Urine Negative (Negative); Phencyclidine Screen,Urine Negative (Negative)
[2017-11-25] MEDS ORDERED: THIAMINE 200 MG/2 ML VIAL IV STA (15:59)
[2017-11-25] MEDS ORDERED: LORazepam 2 MG/1 ML VIAL IV PRN ×2 (16:21→17:01)
[2017-11-25] MEDS ORDERED: GLUCAGON 1 MG VIAL IM PRN (16:25)
[2017-11-25] MEDS ORDERED: DEXTROSE 50% 25 GM/50 ML VIAL IV PRN (16:25)
[2017-11-25] MEDS ORDERED: THIAMINE INJ 100 MG, FOLIC ACID INJ 1 MG, MAGNESIUM SULF INJ 2 GM, MULTIVITAMIN INJ 10 ... IV ONE (16:26)
[2017-11-25] MEDS ORDERED: SCOPOLAMINE 1.5 MG PATCH TRANSDERM SCH (16:30)
[2017-11-25] MEDS ORDERED: hydrALAZINE 20 MG/1 ML VIAL IV PRN (16:40)
[2017-11-25] MEDS: SODIUM CHLORIDE 0.9% 1,000 ML IV SCH (17:00)
[2017-11-25] MEDS: INSULIN REGULAR 100 UNIT/ML SUBCUT SCH (18:08)
[2017-11-25] MEDS: METOPROLOL TARTRATE 5 MG/5 ML VIAL IV SCH (18:14)
[2017-11-25] MEDS: prednisoLONE ACETATE 1% OPH SUSP 5 ML BOTTLE RIGHT EYE SCH ×2 (18:18→21:23)
[2017-11-25] MEDS: MOXIFLOXACIN 0.5% OPH SOLN 3 ML BOTTLE RIGHT EYE SCH ×2 (18:18→21:24)
[2017-11-25] MEDS: METOCLOPRAMIDE 10 MG/2 ML VIAL IV SCH (18:20)
[2017-11-25] MEDS: ALBUTEROL/IPRATROPIUM 3 ML NEB RESP TX SCH (19:40)
[2017-11-25] MEDS: ONDANSETRON 4 MG/2 ML VIAL IV PRN (19:48)
[2017-11-25] MEDS ORDERED: ZALEPLON 5 MG CAPSULE PO PRN (19:57)
[2017-11-25 20:01] LABS: Folate 20.5 NG/ML (5.4-24.0)
[2017-11-25] MEDS: THIAMINE INJ 100 MG, FOLIC ACID INJ 1 MG, MAGNESIUM SULF INJ 2 GM, MULTIVITAMIN INJ 10 ... IV SCH (22:04)
[2017-11-26] MEDS: METOPROLOL TARTRATE 5 MG/5 ML VIAL IV SCH ×3 (00:06→13:11)
[2017-11-26] MEDS: METOCLOPRAMIDE 10 MG/2 ML VIAL IV SCH ×3 (00:09→13:17)
[2017-11-26] MEDS: INSULIN REGULAR 100 UNIT/ML SUBCUT SCH ×3 (00:17→13:11)
[2017-11-26] MEDS: ALBUTEROL/IPRATROPIUM 3 ML NEB RESP TX SCH ×2 (01:36→07:19)
[2017-11-26] MEDS: ONDANSETRON 4 MG/2 ML VIAL IV PRN ×2 (02:22→10:44)
[2017-11-26 07:30] LABS: Basophils # 0.1 10*3/uL (0.0-0.2); Basophils % 1.5 % (0.0-0.8); Eosinophils # 0.1 10*3/uL (0.0-0.87); Eosinophils % 1.7 % (0.00-10.9); Hematocrit 36.9 VOL% (35.7-47.0); Hemoglobin 11.3 GM/DL (12.0-16.0); Immature Granulocytes % 0.1 %; Immature Granulocytes Absolute 0.01 #; Lymphocytes # 2.1 10*3/uL (1.4-4.0); Lymphocytes % 28.8 % (21.3-54.2); Mean Corpuscular HGB Conc 30.6 GM/DL (32-36); Mean Corpuscular Hemoglobin 26 PG (27-34); Mean Corpuscular Volume 83.5 FL (87-102); Mean Platelet Volume 9.9 FL (9.6-12.0); Monocytes # 0.9 10*3/uL (0.11-0.8); Monocytes % 12.2 % (1.7-12.7); Neutrophils % 55.7 % (38.7-73.9); Platelet Count 309 T/CUMM (130-400); Red Blood Count 4.42 MC/CUMM (3.8-5.5); Red Cell Distribution Width 16.8 % (9.3-17.3); White Blood Count 7.2 T/CUMM (4-12)
[2017-11-26 07:50] LABS: Bilirubin,Total 0.6 MG/DL (0.2-1.0); Calcium 8.5 MG/DL (8.5-10.1); Osmolality,Calculated 276.5 MOS/KG (273-304); Potassium 3.3 MMOL/L (3.5-5.1); Total Protein 6.6 G/DL (6.4-8.3)
[2017-11-26] MEDS ORDERED: NEPAFENAC 0.1% OPH SOLN 3 ML BOTTLE RIGHT EYE SCH (08:00)
[2017-11-26] MEDS ORDERED: POTASSIUM CHLORIDE 20 MEQ TABLET PO PRN (08:47)
[2017-11-26] MEDS ORDERED: MAGNESIUM SULF RIDER 4 GM in PREMIX 1 EACH IV PRN (08:48)
[2017-11-26] MEDS ORDERED: MAGNESIUM SULF RIDER 2 GM in PREMIX 1 EACH IV PRN (08:48)
[2017-11-26] MEDS ORDERED: PANTOPRAZOLE 40 MG VIAL IV SCH (09:00)
[2017-11-26] MEDS ORDERED: [UNRECOGNIZED DRUG - OTHER] IH SCH (09:00)
[2017-11-26] MEDS ORDERED: VILANTEROL IH SCH (09:00)
[2017-11-26] MEDS ORDERED: UMECLIDINIUM IH SCH (09:00)
[2017-11-26] MEDS: MOXIFLOXACIN 0.5% OPH SOLN 3 ML BOTTLE RIGHT EYE SCH ×2 (10:28→13:20)
[2017-11-26] MEDS: prednisoLONE ACETATE 1% OPH SUSP 5 ML BOTTLE RIGHT EYE SCH ×2 (10:28→13:21)
[2017-11-26] MEDS: SODIUM CHLORIDE 0.9% 1,000 ML IV SCH (10:28)
[2017-11-26] MEDS: THIAMINE INJ 100 MG, FOLIC ACID INJ 1 MG, MAGNESIUM SULF INJ 2 GM, MULTIVITAMIN INJ 10 ... IV SCH (10:29)
[2017-11-26] MEDS ORDERED: GLUCAGON 1 MG VIAL IM PRN (12:23)
[2017-11-26] MEDS ORDERED: DEXTROSE 50% 25 GM/50 ML VIAL IV PRN (12:23)
[2017-11-26 13:08] VITALS: BP 166/83
== END 2017-11-26 13:45 | disposition home or self-care (01) ==
LOC: N.EDINP 11:37 → N.ED 11:37 → N.EDINP 17:31 → N.5E 17:49
PROVIDERS: ADMIT Internal Medicine; ATTEND Internal Medicine

== ENCOUNTER 2018-04-07 05:56 | Observation (INO) ==
[2018-04-07] MEDS ORDERED: ONDANSETRON 4 MG/2 ML VIAL ONE (06:29)
[2018-04-07] MEDS ORDERED: ONDANSETRON 4 MG/2 ML VIAL IV STA (06:32)
[2018-04-07] MEDS ORDERED: SODIUM CHLORIDE 0.9% 1,000 ML IV STA (06:34)
[2018-04-07] MEDS ORDERED: PROMETHAZINE 25 MG/1 ML VIAL IM STA ×2 (06:35→08:17)
[2018-04-07] MEDS ORDERED: THIAMINE INJ 100 MG, FOLIC ACID INJ 1 MG, MAGNESIUM SULF INJ 2 GM, MULTIVITAMIN INJ 10 ... IV ONE (06:35)
[2018-04-07 06:53] LABS: Basophils # 0.1 10*3/uL (0.0-0.2); Basophils % 1.1 % (0.0-0.8); Eosinophils # 0.1 10*3/uL (0.0-0.87); Eosinophils % 0.6 % (0.00-10.9); Hematocrit 40.8 VOL% (35.7-47.0); Immature Granulocytes % 0.4 %; Immature Granulocytes Absolute 0.03 #; Lymphocytes # 2.6 10*3/uL (1.4-4.0); Lymphocytes % 32.8 % (21.3-54.2); Mean Corpuscular HGB Conc 31.9 GM/DL (32-36); Mean Corpuscular Hemoglobin 27 PG (27-34); Mean Corpuscular Volume 85.7 FL (87-102); Mean Platelet Volume 9.7 FL (9.6-12.0); Monocytes # 0.6 10*3/uL (0.11-0.8); Monocytes % 7.3 % (1.7-12.7); Neutrophils # 4.6 10*3/uL (1.4-7.4); Neutrophils % 57.8 % (38.7-73.9); Platelet Count 336 T/CUMM (130-400); Red Blood Count 4.76 MC/CUMM (3.8-5.5); Red Cell Distribution Width 16.1 % (9.3-17.3)
[2018-04-07 06:54] LABS: Albumin 3.5 G/DL (3.4-5.0); Bilirubin,Total 0.6 MG/DL (0.2-1.0); Calcium 8.5 MG/DL (8.5-10.1); Osmolality,Calculated 281.7 MOS/KG (273-304); Potassium 3.2 MMOL/L (3.5-5.1); Total Protein 7.7 G/DL (6.4-8.3)
[2018-04-07] MEDS ORDERED: POTASSIUM CHLORIDE 20 MEQ TABLET PO STA (07:39)
[2018-04-07 09:23] LABS: Apearance,Urine Slightly Hazy (Clear); Bilirubin,Urine Negative (Negative); Blood, Urine Negative (Negative); Glucose,Urine (UA) 50 mg/dL (Negative); Ketones,Urine 20 mg/dL (Negative); Mucus,Urine Moderate /LPF (Occasional); Nitrite,Urine Negative (Negative); Protein,Urine 30 MG/DL; RBC,Urine <1 /HPF (0-4); Squamous Epithelial Cell,Urine Occasional /HPF (0-10); Urine Color Yellow (Yellow); Urine Specific Gravity 1.017 (1.001-1.035); WBC,Urine 1 /HPF (0-6)
[2018-04-07] MEDS ORDERED: LORazepam 2 MG/1 ML VIAL ONE (11:19)
[2018-04-07] MEDS ORDERED: PROMETHAZINE 25 MG/1 ML VIAL IM PRN (11:23)
[2018-04-07] MEDS ORDERED: LORazepam 2 MG/1 ML VIAL IV STA (11:28)
[2018-04-07] MEDS ORDERED: GLUCAGON 1 MG VIAL IM PRN (11:30)
[2018-04-07] MEDS ORDERED: DEXTROSE 50% 25 GM/50 ML VIAL IV PRN (11:30)
[2018-04-07 11:52] LABS: Folate > 24.0 NG/ML (5.4-24.0); Vitamin B12 338 PG/ML (211-911)
[2018-04-07] MEDS: ONDANSETRON 4 MG/2 ML VIAL IV PRN ×2 (13:19→20:04)
[2018-04-07] MEDS: POTASSIUM CHLORIDE 20 MEQ TABLET PO SCH ×3 (14:27→21:46)
[2018-04-07] MEDS: chlordiazePOXIDE 25 MG CAPSULE PO SCH ×2 (14:27→20:37)
[2018-04-07] MEDS: PROCHLORPERAZINE 5 MG TABLET PO SCH ×2 (14:27→20:37)
[2018-04-07] MEDS: CYANOCOBALAMIN 1000 MCG/1 ML VIAL IM SCH (14:27)
[2018-04-07] MEDS: INSULIN LISPRO 100 UNIT/ML SUBCUT SCH ×2 (15:45→21:46)
[2018-04-07] MEDS: CARVEDILOL 12.5 MG TABLET PO SCH (16:24)
[2018-04-07] MEDS: LACTATED RINGERS 1,000 ML IV SCH (16:42)
[2018-04-07] MEDS: LISINOPRIL 10 MG TABLET PO SCH (20:37)
[2018-04-07] MEDS: PANTOPRAZOLE 40 MG VIAL IV SCH (20:38)
[2018-04-08] MEDS: LACTATED RINGERS 1,000 ML IV SCH ×3 (00:42→18:12)
[2018-04-08 05:54] LABS: Basophils # 0.1 10*3/uL (0.0-0.2); Basophils % 0.6 % (0.0-0.8); Eosinophils # 0.1 10*3/uL (0.0-0.87); Eosinophils % 0.9 % (0.00-10.9); Hematocrit 36.3 VOL% (35.7-47.0); Hemoglobin 11.4 GM/DL (12.0-16.0); Immature Granulocytes % 0.4 %; Immature Granulocytes Absolute 0.03 #; Lymphocytes # 1.6 10*3/uL (1.4-4.0); Mean Corpuscular HGB Conc 31.4 GM/DL (32-36); Mean Corpuscular Hemoglobin 28 PG (27-34); Mean Corpuscular Volume 87.5 FL (87-102); Mean Platelet Volume 10.1 FL (9.6-12.0); Monocytes % 11.3 % (1.7-12.7); Neutrophils # 5.8 10*3/uL (1.4-7.4); Neutrophils % 67.8 % (38.7-73.9); Platelet Count 250 T/CUMM (130-400); Red Blood Count 4.15 MC/CUMM (3.8-5.5); Red Cell Distribution Width 16.4 % (9.3-17.3); White Blood Count 8.6 T/CUMM (4-12)
[2018-04-08 06:29] LABS: Albumin 3.1 G/DL (3.4-5.0); Bilirubin,Total 1.4 MG/DL (0.2-1.0); Calcium 7.7 MG/DL (8.5-10.1); Osmolality,Calculated 275.8 MOS/KG (273-304); Potassium 4.7 MMOL/L (3.5-5.1); Thyroid Stimulating Hormone 1.82 uIU/ml (0.358-3.74); Total Protein 6.5 G/DL (6.4-8.3)
[2018-04-08] MEDS: INSULIN LISPRO 100 UNIT/ML SUBCUT SCH ×4 (08:54→22:23)
[2018-04-08] MEDS: PANTOPRAZOLE 40 MG VIAL IV SCH ×2 (08:55→21:38)
[2018-04-08] MEDS: chlordiazePOXIDE 25 MG CAPSULE PO SCH ×3 (08:56→21:37)
[2018-04-08] MEDS: FOLIC ACID 1 MG TABLET PO SCH (08:56)
[2018-04-08] MEDS: MULTIVITAMIN (CENTRUM) TABLET PO SCH (08:56)
[2018-04-08] MEDS: THIAMINE 100 MG TABLET PO SCH (08:56)
[2018-04-08] MEDS: CARVEDILOL 12.5 MG TABLET PO SCH ×2 (08:56→17:45)
[2018-04-08] MEDS: CHOLESTYRAMINE 4 GM PACK PO SCH ×2 (08:57→21:37)
[2018-04-08] MEDS: CYANOCOBALAMIN 1000 MCG/1 ML VIAL IM SCH (08:57)
[2018-04-08] MEDS: PROCHLORPERAZINE 5 MG TABLET PO SCH ×3 (09:02→21:37)
[2018-04-08] MEDS: INSULIN GLARGINE 100 UNIT/ML SUBCUT SCH (12:58)
[2018-04-08] MEDS: ACETAMINOPHEN 500 MG TABLET PO PRN (21:37)
[2018-04-08] MEDS: LISINOPRIL 10 MG TABLET PO SCH (21:37)
[2018-04-08] MEDS ORDERED: TRELEGY INH SCH (22:03)
[2018-04-08] MEDS: THEOPHYLLINE ER 300 MG TABLET PO SCH (22:23)
[2018-04-08] MEDS: ALBUTEROL 0.4 MG/ML 30 ML/BOTTLE PO SCH (22:52)
[2018-04-09] MEDS: ACETAMINOPHEN 500 MG TABLET PO PRN ×2 (04:45→19:36)
[2018-04-09] MEDS: LACTATED RINGERS 1,000 ML IV SCH (06:18)
[2018-04-09] MEDS: INSULIN GLARGINE 100 UNIT/ML SUBCUT SCH (09:30)
[2018-04-09] MEDS: INSULIN LISPRO 100 UNIT/ML SUBCUT SCH ×4 (09:30→20:30)
[2018-04-09] MEDS: chlordiazePOXIDE 25 MG CAPSULE PO SCH ×2 (09:44→20:25)
[2018-04-09] MEDS: FOLIC ACID 1 MG TABLET PO SCH (09:44)
[2018-04-09] MEDS: MULTIVITAMIN (CENTRUM) TABLET PO SCH (09:44)
[2018-04-09] MEDS: CHOLESTYRAMINE 4 GM PACK PO SCH ×2 (09:44→20:25)
[2018-04-09] MEDS: THEOPHYLLINE ER 300 MG TABLET PO SCH ×2 (09:44→17:09)
[2018-04-09] MEDS: CARVEDILOL 12.5 MG TABLET PO SCH ×2 (09:44→17:09)
[2018-04-09] MEDS: PROCHLORPERAZINE 5 MG TABLET PO SCH ×3 (09:44→20:25)
[2018-04-09] MEDS: PANTOPRAZOLE 40 MG VIAL IV SCH ×2 (09:44→20:25)
[2018-04-09] MEDS: ALBUTEROL 0.4 MG/ML 30 ML/BOTTLE PO SCH ×3 (10:13→20:26)
[2018-04-09] MEDS: THIAMINE 100 MG TABLET PO SCH (11:45)
[2018-04-09] MEDS: LISINOPRIL 10 MG TABLET PO SCH (20:25)
[2018-04-09] MEDS ORDERED: ZALEPLON 5 MG CAPSULE PO PRN (23:29)
[2018-04-10] MEDS: THEOPHYLLINE ER 300 MG TABLET PO SCH (08:12)
[2018-04-10] MEDS: CARVEDILOL 12.5 MG TABLET PO SCH (08:12)
[2018-04-10] MEDS ORDERED: PANTOPRAZOLE 40 MG TABLET PO SCH (09:00)
[2018-04-10] MEDS: FOLIC ACID 1 MG TABLET PO SCH (10:16)
[2018-04-10] MEDS: chlordiazePOXIDE 25 MG CAPSULE PO SCH ×2 (10:17→16:19)
[2018-04-10] MEDS: PROCHLORPERAZINE 5 MG TABLET PO SCH ×2 (10:17→16:18)
[2018-04-10] MEDS: MULTIVITAMIN (CENTRUM) TABLET PO SCH (10:17)
[2018-04-10] MEDS: INSULIN GLARGINE 100 UNIT/ML SUBCUT SCH (10:18)
[2018-04-10] MEDS: CHOLESTYRAMINE 4 GM PACK PO SCH (11:21)
[2018-04-10] MEDS: INSULIN LISPRO 100 UNIT/ML SUBCUT SCH ×3 (12:08→16:19)
[2018-04-10] MEDS: ALBUTEROL 0.4 MG/ML 30 ML/BOTTLE PO SCH ×2 (12:10→16:18)
[2018-04-10] MEDS: THIAMINE 100 MG TABLET PO SCH (12:10)
[2018-04-10 15:57] VITALS: BP 134/85
== END 2018-04-10 17:30 | disposition home or self-care (01) ==
LOC: EDBD → EDUNIT# → N.ED 05:56 → N.EDINP 05:56 → SUATTDRO 11:23 → N.2E 12:21
PROVIDERS: ADMIT Internal Medicine Cardiovascular Disease; ATTEND Internal Medicine

== ENCOUNTER 2018-09-27 05:08 | Observation (INO) ==
[2018-09-27 05:54] LABS: INR 0.9; PT Patient Result 10.1 SECS; Partial Thromboplastin Time 22.7 SECS (0-40)
[2018-09-27 05:55] LABS: Basophils # 0.1 10*3/uL (0.0-0.2); Basophils % 0.6 % (0.0-0.8); Eosinophils % 0.2 % (0.00-10.9); Hematocrit 39.6 VOL% (35.7-47.0); Hemoglobin 12.8 GM/DL (12.0-16.0); Immature Granulocytes % 0.5 %; Immature Granulocytes Absolute 0.06 #; Lymphocytes # 1.6 10*3/uL (1.4-4.0); Lymphocytes % 14.4 % (21.3-54.2); Mean Corpuscular HGB Conc 32.3 GM/DL (32-36); Mean Corpuscular Volume 86.3 FL (87-102); Mean Platelet Volume 9.7 FL (9.6-12.0); Monocytes % 5.4 % (1.7-12.7); Neutrophils % 78.9 % (38.7-73.9); Platelet Count 395 T/CUMM (130-400); Red Blood Count 4.59 MC/CUMM (3.8-5.5); Red Cell Distribution Width 14.2 % (9.3-17.3); White Blood Count 10.9 T/CUMM (4-12)
[2018-09-27] MEDS ORDERED: SODIUM CHLORIDE 0.9% 1,000 ML IV STA (06:14)
[2018-09-27] MEDS ORDERED: ONDANSETRON 4 MG/2 ML VIAL IV STA (06:14)
[2018-09-27 06:15] LABS: Alanine Aminotransferase 52 U/L (13-56); Albumin 3.9 G/DL (3.4-5.0); Alkaline Phosphatase 68 U/L (45-117); Aspartate Amino Transferase 52 U/L (0-37); Blood Urea Nitrogen 13 MG/DL (7-18); Glucose 304 MG/DL (74-106); Osmolality,Calculated 278.2 MOS/KG (273-304); Total Protein 7.4 G/DL (6.4-8.3); Troponin I < 0.015 NG/ML (0.00-0.045)
[2018-09-27] MEDS ORDERED: ONDANSETRON 4 MG/2 ML VIAL ONE (06:15)
[2018-09-27 06:32] LABS: Amylase 52 U/L (25-115)
[2018-09-27] MEDS ORDERED: POTASSIUM CHLORIDE 20 MEQ TABLET PO STA (06:53)
[2018-09-27] MEDS ORDERED: POTASSIUM CHLORIDE RIDER 20 MEQ in PREMIX 1 EACH IV STA (06:54)
[2018-09-27] MEDS ORDERED: POTASSIUM CHLORIDE RIDER 100 ML IV ONE ×2 (07:13→07:57)
[2018-09-27] MEDS ORDERED: DEXTROSE 50% 25 GM/50 ML VIAL IV PRN (07:55)
[2018-09-27] MEDS ORDERED: ONDANSETRON 4 MG TABLET PO PRN (07:55)
[2018-09-27] MEDS ORDERED: GLUCAGON 1 MG VIAL IM PRN (07:55)
[2018-09-27] MEDS ORDERED: METHOCARBAMOL 750 MG TABLET PO PRN (07:55)
[2018-09-27] MEDS: PROMETHAZINE 25 MG/1 ML VIAL IM PRN ×2 (08:10→18:32)
[2018-09-27] MEDS: ONDANSETRON 4 MG/2 ML VIAL IV PRN ×4 (08:25→23:35)
[2018-09-27 08:28] LABS: Folate > 24.0 NG/ML (5.4-24.0); Vitamin B12 541 PG/ML (211-911)
[2018-09-27 08:32] LABS: Barbiturates Screen,Urine Negative (Negative); Benzodiazepines Screen,Urine Negative (Negative); Cannabinoid Screen,Urine Negative (Negative); Opiate Screen,Urine Negative (Negative); Phencyclidine Screen,Urine Negative (Negative)
[2018-09-27] MEDS ORDERED: PANTOPRAZOLE 40 MG TABLET PO SCH (09:00)
[2018-09-27] MEDS: POTASSIUM CHLORIDE 20 MEQ TABLET PO SCH ×2 (09:16→12:45)
[2018-09-27] MEDS ORDERED: ONDANSETRON ODT 4 MG TABLET PO ONE (10:35)
[2018-09-27] MEDS: PROMETHAZINE 25 MG TABLET PO PRN ×2 (10:40→16:39)
[2018-09-27] MEDS: PANTOPRAZOLE 40 MG TABLET PO SCH ×2 (10:40→21:54)
[2018-09-27] MEDS ORDERED: MAGNESIUM SULF RIDER 2 GM in PREMIX 1 EACH IV ONE (12:57)
[2018-09-27] MEDS ORDERED: POTASSIUM CHLORIDE 20 MEQ TABLET PO ONE (14:40)
[2018-09-27] MEDS: FLUoxetine 20 MG CAPSULE PO SCH (14:41)
[2018-09-27] MEDS: MONTELUKAST 10 MG TABLET PO SCH (14:42)
[2018-09-27] MEDS: MULTIVITAMIN (CENTRUM) TABLET PO SCH (14:42)
[2018-09-27] MEDS: METOCLOPRAMIDE 10 MG/10 ML UDCUP PO SCH ×3 (14:42→21:54)
[2018-09-27] MEDS: CARVEDILOL 12.5 MG TABLET PO SCH ×2 (14:42→21:29)
[2018-09-27] MEDS: OMEGA 3 ACID ETHYL ESTERS 1 GM CAPSULE PO SCH ×2 (14:42→21:54)
[2018-09-27] MEDS: THEOPHYLLINE ER 300 MG TABLET PO SCH ×2 (14:42→21:29)
[2018-09-27] MEDS: ENOXAPARIN 40 MG/0.4 ML SYRINGE SUBCUT SCH (14:43)
[2018-09-27] MEDS: FAMOTIDINE 20 MG/2 ML VIAL IV SCH (14:48)
[2018-09-27] MEDS: POTASSIUM CHLORIDE INJ 40 MEQ in LACTATED RINGERS 1,000 ML IV SCH ×2 (14:48→23:35)
[2018-09-27] MEDS: ALBUTEROL 0.4 MG/ML 30 ML/BOTTLE PO SCH ×3 (14:56→21:28)
[2018-09-27] MEDS: INSULIN LISPRO 100 UNIT/ML SUBCUT SCH ×3 (15:46→21:29)
[2018-09-27] MEDS: SUCRALFATE 1 GM/10 ML UDCUP PO SCH ×2 (15:51→21:30)
[2018-09-27] MEDS: FLUTICASONE UMECLIDIN VILANTER INH SCH (16:08)
[2018-09-27] MEDS: CHLORTHALIDONE 25 MG TABLET PO SCH (16:39)
[2018-09-27] MEDS: CLORAZEPATE 3.75 MG TABLET PO SCH ×2 (16:39→21:54)
[2018-09-27] MEDS: ZALEPLON 5 MG CAPSULE PO PRN (21:29)
[2018-09-27] MEDS: MULTIVITAMIN (BEROCCA) TABLET PO SCH (21:29)
[2018-09-27] MEDS: CETIRIZINE 10 MG TABLET PO SCH (21:29)
[2018-09-27] MEDS: GABAPENTIN 600 MG TABLET PO SCH (21:30)
[2018-09-27] MEDS: ASPIRIN EC 81 MG TABLET PO SCH (21:30)
[2018-09-27] MEDS: LISINOPRIL 10 MG TABLET PO SCH (21:30)
[2018-09-27] MEDS: INSULIN GLARGINE 100 UNIT/ML SUBCUT SCH (21:54)
[2018-09-28] MEDS: FAMOTIDINE 20 MG/2 ML VIAL IV SCH ×2 (02:01→15:09)
[2018-09-28] MEDS: PROMETHAZINE 25 MG/1 ML VIAL IM PRN (04:07)
[2018-09-28 05:15] LABS: Basophils # 0.1 10*3/uL (0.0-0.2); Basophils % 0.8 % (0.0-0.8); Eosinophils # 0.1 10*3/uL (0.0-0.87); Eosinophils % 2.2 % (0.00-10.9); Hematocrit 35.5 VOL% (35.7-47.0); Hemoglobin 10.9 GM/DL (12.0-16.0); Immature Granulocytes % 0.2 %; Immature Granulocytes Absolute 0.01 #; Mean Corpuscular HGB Conc 30.7 GM/DL (32-36); Mean Platelet Volume 9.2 FL (9.6-12.0); Monocytes % 11.8 % (1.7-12.7); Platelet Count 312 T/CUMM (130-400); Red Blood Count 3.99 MC/CUMM (3.8-5.5); Red Cell Distribution Width 14.3 % (9.3-17.3); White Blood Count 6.5 T/CUMM (4-12)
[2018-09-28 05:35] LABS: Albumin 3.1 G/DL (3.4-5.0); Bilirubin,Total 0.7 MG/DL (0.2-1.0); Calcium 8.8 MG/DL (8.5-10.1); Osmolality,Calculated 281.3 MOS/KG (273-304); Risk Ratio 7.06; Total Protein 6.1 G/DL (6.4-8.3); VLDL CHOLESTEROL 73.4 MG/DL
[2018-09-28] MEDS: POTASSIUM CHLORIDE INJ 40 MEQ in LACTATED RINGERS 1,000 ML IV SCH ×2 (09:25→19:40)
[2018-09-28] MEDS: CLORAZEPATE 3.75 MG TABLET PO SCH ×4 (09:25→22:13)
[2018-09-28] MEDS: OMEGA 3 ACID ETHYL ESTERS 1 GM CAPSULE PO SCH ×2 (09:26→22:20)
[2018-09-28] MEDS: THEOPHYLLINE ER 300 MG TABLET PO SCH ×2 (09:26→22:15)
[2018-09-28] MEDS: PANTOPRAZOLE 40 MG TABLET PO SCH ×2 (09:26→22:15)
[2018-09-28] MEDS: CHLORTHALIDONE 25 MG TABLET PO SCH (09:26)
[2018-09-28] MEDS: FLUoxetine 20 MG CAPSULE PO SCH (09:26)
[2018-09-28] MEDS: MULTIVITAMIN (CENTRUM) TABLET PO SCH (09:26)
[2018-09-28] MEDS: MONTELUKAST 10 MG TABLET PO SCH (09:26)
[2018-09-28] MEDS: SUCRALFATE 1 GM/10 ML UDCUP PO SCH ×4 (09:27→22:14)
[2018-09-28] MEDS: CARVEDILOL 12.5 MG TABLET PO SCH ×2 (09:27→22:15)
[2018-09-28] MEDS: METOCLOPRAMIDE 10 MG/10 ML UDCUP PO SCH ×4 (09:27→22:14)
[2018-09-28] MEDS: FLUTICASONE UMECLIDIN VILANTER INH SCH (09:28)
[2018-09-28] MEDS: INSULIN LISPRO 100 UNIT/ML SUBCUT SCH ×4 (09:28→22:16)
[2018-09-28] MEDS: ONDANSETRON 4 MG/2 ML VIAL IV PRN (09:34)
[2018-09-28] MEDS: ALBUTEROL 0.4 MG/ML 30 ML/BOTTLE PO SCH ×3 (09:36→22:13)
[2018-09-28] MEDS: ENOXAPARIN 40 MG/0.4 ML SYRINGE SUBCUT SCH (15:07)
[2018-09-28] MEDS: PROMETHAZINE 25 MG TABLET PO PRN (15:19)
[2018-09-28] MEDS ORDERED: GLUCAGON 1 MG VIAL IM PRN (16:12)
[2018-09-28] MEDS ORDERED: DEXTROSE 50% 25 GM/50 ML VIAL IV PRN (16:12)
[2018-09-28] MEDS: ASPIRIN EC 81 MG TABLET PO SCH (18:25)
[2018-09-28] MEDS: CETIRIZINE 10 MG TABLET PO SCH (22:13)
[2018-09-28] MEDS: GABAPENTIN 600 MG TABLET PO SCH (22:13)
[2018-09-28] MEDS: MULTIVITAMIN (BEROCCA) TABLET PO SCH (22:13)
[2018-09-28] MEDS: LISINOPRIL 10 MG TABLET PO SCH (22:14)
[2018-09-28] MEDS: ACETAMINOPHEN 325 MG TABLET PO PRN (22:15)
[2018-09-28] MEDS: INSULIN GLARGINE 100 UNIT/ML SUBCUT SCH (22:16)
[2018-09-28] MEDS: ZALEPLON 5 MG CAPSULE PO PRN (22:30)
[2018-09-29] MEDS: FAMOTIDINE 20 MG/2 ML VIAL IV SCH (02:07)
[2018-09-29] MEDS: POTASSIUM CHLORIDE INJ 40 MEQ in LACTATED RINGERS 1,000 ML IV SCH ×2 (02:14→11:58)
[2018-09-29] MEDS: PROMETHAZINE 25 MG TABLET PO PRN ×2 (02:14→08:41)
[2018-09-29] MEDS: ACETAMINOPHEN 325 MG TABLET PO PRN (07:41)
[2018-09-29 08:10] LABS: Calcium 8.6 MG/DL (8.5-10.1); Osmolality,Calculated 284.4 MOS/KG (273-304)
[2018-09-29] MEDS: METOCLOPRAMIDE 10 MG/10 ML UDCUP PO SCH (08:30)
[2018-09-29] MEDS: THEOPHYLLINE ER 300 MG TABLET PO SCH (08:30)
[2018-09-29] MEDS: INSULIN LISPRO 100 UNIT/ML SUBCUT SCH (08:30)
[2018-09-29] MEDS: MONTELUKAST 10 MG TABLET PO SCH (08:31)
[2018-09-29] MEDS: PANTOPRAZOLE 40 MG TABLET PO SCH (08:31)
[2018-09-29] MEDS: SUCRALFATE 1 GM/10 ML UDCUP PO SCH (08:31)
[2018-09-29] MEDS: FLUoxetine 20 MG CAPSULE PO SCH (08:31)
[2018-09-29] MEDS: MULTIVITAMIN (CENTRUM) TABLET PO SCH (08:31)
[2018-09-29] MEDS: CLORAZEPATE 3.75 MG TABLET PO SCH (08:31)
[2018-09-29] MEDS: CHLORTHALIDONE 25 MG TABLET PO SCH (08:32)
[2018-09-29] MEDS: OMEGA 3 ACID ETHYL ESTERS 1 GM CAPSULE PO SCH (08:32)
[2018-09-29] MEDS: CARVEDILOL 12.5 MG TABLET PO SCH (08:32)
[2018-09-29] MEDS: ALBUTEROL 0.4 MG/ML 30 ML/BOTTLE PO SCH (08:33)
[2018-09-29] MEDS: FLUTICASONE UMECLIDIN VILANTER INH SCH (10:12)
[2018-09-29 11:40] VITALS: BP 170/93
== END 2018-09-29 12:15 | disposition home or self-care (01) ==
LOC: EDUNIT# → EDBD → N.ED 05:08 → N.EDINP 05:08 → SUATTDRO 07:48 → N.2E 12:41
PROVIDERS: ADMIT Internal Medicine; ATTEND Hospitalist

== ENCOUNTER 2018-11-11 03:14 | Observation (INO) ==
[2018-11-11] MEDS ORDERED: SODIUM CHLORIDE 0.9% 1,000 ML IV STA (03:49)
[2018-11-11] MEDS ORDERED: diphenhydrAMINE 50 MG/1 ML VIAL IV STA (03:50)
[2018-11-11] MEDS ORDERED: METOCLOPRAMIDE 10 MG/2 ML VIAL IV STA (03:50)
[2018-11-11 03:58] LABS: Basophils # 0.1 10*3/uL (0.0-0.2); Eosinophils % 0.5 % (0.00-10.9); Hematocrit 38.5 VOL% (35.7-47.0); Hemoglobin 11.5 GM/DL (12.0-16.0); Immature Granulocytes % 0.3 %; Immature Granulocytes Absolute 0.02 #; Lymphocytes # 2.5 10*3/uL (1.4-4.0); Lymphocytes % 31.8 % (21.3-54.2); Mean Corpuscular HGB Conc 29.9 GM/DL (32-36); Mean Corpuscular Volume 86.5 FL (87-102); Mean Platelet Volume 9.5 FL (9.6-12.0); Monocytes % 7.6 % (1.7-12.7); Neutrophils % 58.8 % (38.7-73.9); Platelet Count 387 T/CUMM (130-400); Red Blood Count 4.45 MC/CUMM (3.8-5.5); Red Cell Distribution Width 16.5 % (9.3-17.3); White Blood Count 7.9 T/CUMM (4-12)
[2018-11-11 04:10] LABS: Albumin 3.5 G/DL (3.4-5.0); Bilirubin,Total 0.5 MG/DL (0.2-1.0); Calcium 9.6 MG/DL (8.5-10.1); Osmolality,Calculated 282.7 MOS/KG (273-304); Total Protein 7.3 G/DL (6.4-8.3)
[2018-11-11] MEDS ORDERED: PROMETHAZINE 25 MG/1 ML VIAL IM STA (05:01)
[2018-11-11] MEDS ORDERED: ONDANSETRON 4 MG/2 ML VIAL IV STA (05:01)
[2018-11-11] MEDS ORDERED: ACETAMINOPHEN 325 MG TABLET PO PRN (05:57)
[2018-11-11] MEDS ORDERED: DEXTROSE 50% 25 GM/50 ML VIAL IV PRN (06:03)
[2018-11-11] MEDS ORDERED: GLUCAGON 1 MG VIAL IM PRN (06:03)
[2018-11-11] MEDS ORDERED: DICYCLOMINE 10 MG CAPSULE PO PRN (06:04)
[2018-11-11] MEDS ORDERED: METHOCARBAMOL 750 MG TABLET PO PRN (06:04)
[2018-11-11] MEDS ORDERED: POTASSIUM CHLORIDE 20 MEQ TABLET PO PRN (07:27)
[2018-11-11] MEDS: SODIUM CHLORIDE 0.9% 1,000 ML IV SCH ×2 (07:44→17:12)
[2018-11-11] MEDS: INSULIN REGULAR 100 UNIT/ML SUBCUT SCH ×4 (07:46→20:58)
[2018-11-11] MEDS: LORazepam 1 MG TABLET PO SCH ×5 (07:47→22:51)
[2018-11-11] MEDS: POTASSIUM CHLORIDE 20 MEQ TABLET PO PRN ×4 (07:48→14:30)
[2018-11-11] MEDS: HydrOXYzine PAMOATE 25 MG CAPSULE PO PRN ×3 (07:48→18:32)
[2018-11-11] MEDS: ENOXAPARIN 40 MG/0.4 ML SYRINGE SUBCUT SCH (07:48)
[2018-11-11] MEDS: PANTOPRAZOLE 40 MG TABLET PO SCH (09:06)
[2018-11-11] MEDS: ONDANSETRON 4 MG/2 ML VIAL IV PRN ×2 (09:39→16:32)
[2018-11-11] MEDS: CARVEDILOL 12.5 MG TABLET PO SCH ×2 (10:57→17:43)
[2018-11-11] MEDS: CHLORTHALIDONE 25 MG TABLET PO SCH (10:57)
[2018-11-11] MEDS: PROMETHAZINE 25 MG/1 ML VIAL IM PRN (11:26)
[2018-11-11] MEDS: METOCLOPRAMIDE 10 MG/10 ML UDCUP PO SCH ×2 (17:43→20:37)
[2018-11-11] MEDS: chlordiazePOXIDE 25 MG CAPSULE PO SCH (20:36)
[2018-11-11] MEDS ORDERED: GABAPENTIN 600 MG TABLET PO SCH (21:00)
[2018-11-11] MEDS ORDERED: LISINOPRIL 10 MG TABLET PO SCH (21:00)
[2018-11-11] MEDS ORDERED: ASPIRIN EC 81 MG TABLET PO SCH (21:00)
[2018-11-12] MEDS: LORazepam 1 MG TABLET PO SCH ×3 (02:47→13:15)
[2018-11-12 05:08] LABS: Bilirubin,Total 1.2 MG/DL (0.2-1.0); Calcium 7.9 MG/DL (8.5-10.1); Osmolality,Calculated 281.5 MOS/KG (273-304); Total Protein 5.7 G/DL (6.4-8.3)
[2018-11-12 05:13] LABS: Anisocytosis 1+; Platelet Estimate Adequate
[2018-11-12 05:15] LABS: Basophils # 0.1 10*3/uL (0.0-0.2); Eosinophils # 0.1 10*3/uL (0.0-0.87); Eosinophils % 2.1 % (0.00-10.9); Hematocrit 35.2 VOL% (35.7-47.0); Hemoglobin 10.4 GM/DL (12.0-16.0); Immature Granulocytes % 0.5 %; Immature Granulocytes Absolute 0.03 #; Lymphocytes # 1.7 10*3/uL (1.4-4.0); Mean Corpuscular HGB Conc 29.5 GM/DL (32-36); Mean Corpuscular Volume 87.8 FL (87-102); Mean Platelet Volume 9.5 FL (9.6-12.0); Neutrophils % 58.4 % (38.7-73.9); Platelet Count 292 T/CUMM (130-400); Red Blood Count 4.01 MC/CUMM (3.8-5.5); Red Cell Distribution Width 16.4 % (9.3-17.3); White Blood Count 5.8 T/CUMM (4-12)
[2018-11-12] MEDS: POTASSIUM CHLORIDE RIDER 10 MEQ in PREMIX 1 EACH IV PRN ×4 (05:41→12:04)
[2018-11-12] MEDS: SODIUM CHLORIDE 0.9% 1,000 ML IV SCH (05:42)
[2018-11-12] MEDS: PROMETHAZINE 25 MG/1 ML VIAL IM PRN (06:04)
[2018-11-12] MEDS: ENOXAPARIN 40 MG/0.4 ML SYRINGE SUBCUT SCH (06:04)
[2018-11-12] MEDS: INSULIN REGULAR 100 UNIT/ML SUBCUT SCH ×2 (08:22→11:38)
[2018-11-12] MEDS: CHLORTHALIDONE 25 MG TABLET PO SCH (08:23)
[2018-11-12] MEDS: chlordiazePOXIDE 25 MG CAPSULE PO SCH (08:23)
[2018-11-12] MEDS: PANTOPRAZOLE 40 MG TABLET PO SCH (08:23)
[2018-11-12] MEDS: CARVEDILOL 12.5 MG TABLET PO SCH (08:23)
[2018-11-12] MEDS: METOCLOPRAMIDE 10 MG/10 ML UDCUP PO SCH ×2 (08:23→11:41)
[2018-11-12] MEDS: HydrOXYzine PAMOATE 25 MG CAPSULE PO PRN (08:40)
[2018-11-12] MEDS ORDERED: POTASSIUM CHLORIDE 20 MEQ TABLET PO SCH (09:00)
[2018-11-12] MEDS ORDERED: SPIRONOLACTONE 25 MG TABLET PO SCH (09:00)
[2018-11-12] MEDS ORDERED: FLUoxetine 20 MG CAPSULE PO SCH (09:00)
[2018-11-12] MEDS ORDERED: amLODIPine 10 MG TABLET PO SCH (09:00)
[2018-11-12] MEDS ORDERED: MONTELUKAST 10 MG TABLET PO SCH (09:00)
[2018-11-12] MEDS: ONDANSETRON 4 MG/2 ML VIAL IV PRN (11:42)
[2018-11-12 16:20] VITALS: BP 133/89
== END 2018-11-12 15:50 | disposition home or self-care (01) ==
LOC: EDBD → EDUNIT# → N.ED 03:14 → N.EDINP 03:14 → N.2E 06:33
PROVIDERS: ADMIT Internal Medicine; ATTEND Internal Medicine

== ENCOUNTER 2019-05-31 15:29 | Inpatient (IN) ==
[2019-05-31] MEDS ORDERED: ALBUTEROL/IPRATROPIUM 3 ML NEB RESP TX STA (16:07)
[2019-05-31] MEDS ORDERED: FUROSEMIDE 40 MG/4 ML VIAL IV STA (16:47)
[2019-05-31 16:54] LABS: Basophils # 0.1 10*3/uL (0.0-0.2); Basophils % 0.4 % (0.0-0.8); Eosinophils % 0.1 % (0.00-10.9); Hematocrit 34.8 VOL% (35.7-47.0); Immature Granulocytes % 1.1 %; Immature Granulocytes Absolute 0.15 #; Lymphocytes # 1.7 10*3/uL (1.4-4.0); Lymphocytes % 12.6 % (21.3-54.2); Mean Corpuscular HGB Conc 28.7 GM/DL (32-36); Mean Corpuscular Volume 79.5 FL (87-102); Mean Platelet Volume 9.3 FL (9.6-12.0); Monocytes % 6.8 % (1.7-12.7); NRBC # 0.08 10*3/uL; Platelet Count 444 T/CUMM (130-400); Red Blood Count 4.38 MC/CUMM (3.8-5.5); Red Cell Distribution Width 18.6 % (9.3-17.3); White Blood Count 13.8 T/CUMM (4-12)
[2019-05-31] MEDS ORDERED: ASPIRIN 325 MG TABLET PO STA (17:22)
[2019-05-31 17:23] LABS: Albumin 3.2 G/DL (3.4-5.0); Calcium 8.1 MG/DL (8.5-10.1); Osmolality,Calculated 281.4 MOS/KG (273-304); Total Protein 6.7 G/DL (6.4-8.3)
[2019-05-31] MEDS ORDERED: GLUCAGON 1 MG VIAL IM PRN (18:28)
[2019-05-31] MEDS ORDERED: ONDANSETRON 4 MG/2 ML VIAL IV PRN (18:28)
[2019-05-31] MEDS ORDERED: ACETAMINOPHEN 325 MG TABLET PO PRN (18:28)
[2019-05-31] MEDS ORDERED: DEXTROSE 10% 250 ML BAG IV PRN (18:28)
[2019-05-31] MEDS: ALBUTEROL/IPRATROPIUM 3 ML NEB RESP TX SCH (19:05)
[2019-05-31] MEDS: METOCLOPRAMIDE 10 MG/10 ML UDCUP PO SCH (22:42)
[2019-05-31] MEDS: THEOPHYLLINE ER (24 HR) 200 MG CAPSULE PO SCH (22:44)
[2019-05-31] MEDS: lisinopriL 10 MG TABLET PO SCH (22:44)
[2019-05-31] MEDS: CETIRIZINE 10 MG TABLET PO SCH (22:44)
[2019-05-31] MEDS: carvediloL 12.5 MG TABLET PO SCH (22:44)
[2019-05-31] MEDS: MELATONIN 3 MG TABLET PO SCH (22:44)
[2019-05-31] MEDS: MULTIVITAMIN (BEROCCA) TABLET PO SCH (22:45)
[2019-05-31] MEDS: PANTOPRAZOLE 40 MG TABLET PO SCH (22:45)
[2019-05-31] MEDS: ENOXAPARIN 40 MG/0.4 ML SYRINGE SUBCUT SCH (22:45)
[2019-05-31] MEDS: GABAPENTIN 600 MG TABLET PO SCH (22:45)
[2019-05-31] MEDS: methylPREDNISolone SOD SUC 40 MG/1 ML VIAL IV SCH (22:46)
[2019-05-31] MEDS: INSULIN REGULAR 100 UNIT/ML SUBCUT SCH (23:01)
[2019-05-31] MEDS: MIRTAZAPINE 30 MG TABLET PO SCH (23:27)
[2019-06-01] MEDS: ALBUTEROL/IPRATROPIUM 3 ML NEB RESP TX SCH ×4 (02:45→19:45)
[2019-06-01 06:18] LABS: Basophils % 0.3 % (0.0-0.8); Eosinophils % 0.1 % (0.00-10.9); Immature Granulocytes % 1.5 %; Immature Granulocytes Absolute 0.22 #; Lymphocytes # 1.3 10*3/uL (1.4-4.0); Lymphocytes % 8.9 % (21.3-54.2); Mean Corpuscular HGB Conc 28.2 GM/DL (32-36); Mean Corpuscular Volume 81.4 FL (87-102); Monocytes % 4.3 % (1.7-12.7); NRBC # 0.08 10*3/uL; Neutrophils % 84.9 % (38.7-73.9); Platelet Count 450 T/CUMM (130-400); Red Blood Count 4.31 MC/CUMM (3.8-5.5); Red Cell Distribution Width 18.4 % (9.3-17.3); White Blood Count 14.8 T/CUMM (4-12)
[2019-06-01 06:44] LABS: Hematocrit 34.8 VOL% (35.7-47.0); Hemoglobin 9.9 GM/DL (12.0-16.0)
[2019-06-01 06:47] LABS: Calcium 7.9 MG/DL (8.5-10.1); Osmolality,Calculated 286.2 MOS/KG (273-304)
[2019-06-01 07:00] LABS: Hypochromasia 1+; Platelet Estimate Adequate
[2019-06-01] MEDS: carvediloL 12.5 MG TABLET PO SCH ×2 (08:44→21:19)
[2019-06-01] MEDS: MULTIVITAMIN (CENTRUM) TABLET PO SCH (08:44)
[2019-06-01] MEDS: THEOPHYLLINE ER (24 HR) 200 MG CAPSULE PO SCH ×2 (08:44→21:19)
[2019-06-01] MEDS: MONTELUKAST 10 MG TABLET PO SCH (08:44)
[2019-06-01] MEDS: GABAPENTIN 300 MG CAPSULE PO SCH (08:44)
[2019-06-01] MEDS: POTASSIUM CHLORIDE 20 MEQ TABLET PO SCH ×4 (08:45→21:18)
[2019-06-01] MEDS: FLUoxetine 20 MG CAPSULE PO SCH (08:45)
[2019-06-01] MEDS: PANTOPRAZOLE 40 MG TABLET PO SCH ×2 (08:45→21:19)
[2019-06-01] MEDS: METOCLOPRAMIDE 10 MG/10 ML UDCUP PO SCH ×4 (08:45→21:21)
[2019-06-01] MEDS: methylPREDNISolone SOD SUC 40 MG/1 ML VIAL IV SCH ×2 (08:48→21:21)
[2019-06-01] MEDS: INSULIN REGULAR 100 UNIT/ML SUBCUT SCH ×4 (08:50→21:29)
[2019-06-01] MEDS ORDERED: MAGNESIUM SULFATE 1 GM/2 ML VIAL IM ONE (09:00)
[2019-06-01] MEDS: INSULIN NPH 100 UNIT/ML SUBCUT SCH ×2 (11:55→16:42)
[2019-06-01] MEDS: MEROPENEM 500 MG in SODIUM CHLORIDE 0.9% 100 ML IV SCH ×2 (14:05→21:17)
[2019-06-01] MEDS: KETOROLAC 10 MG TABLET PO PRN ×2 (15:06→21:42)
[2019-06-01] MEDS: CETIRIZINE 10 MG TABLET PO SCH (21:17)
[2019-06-01] MEDS: MULTIVITAMIN (BEROCCA) TABLET PO SCH (21:18)
[2019-06-01] MEDS: MELATONIN 3 MG TABLET PO SCH (21:18)
[2019-06-01] MEDS: lisinopriL 10 MG TABLET PO SCH (21:19)
[2019-06-01] MEDS: MIRTAZAPINE 30 MG TABLET PO SCH (21:19)
[2019-06-01] MEDS: ENOXAPARIN 40 MG/0.4 ML SYRINGE SUBCUT SCH (21:20)
[2019-06-01] MEDS: GABAPENTIN 600 MG TABLET PO SCH (21:24)
[2019-06-02] MEDS: ALBUTEROL/IPRATROPIUM 3 ML NEB RESP TX SCH ×4 (00:46→19:23)
[2019-06-02] MEDS: MEROPENEM 500 MG in SODIUM CHLORIDE 0.9% 100 ML IV SCH ×4 (01:27→21:18)
[2019-06-02 05:37] LABS: Calcium 7.7 MG/DL (8.5-10.1); Osmolality,Calculated 282.2 MOS/KG (273-304)
[2019-06-02 05:39] LABS: % Iron Saturation 2.6 % (18-50)
[2019-06-02 05:51] LABS: Basophils % 0.1 % (0.0-0.8); Free T4 (Free Thyroxine) 0.99 NG/DL (0.76-1.46); Hematocrit 34.1 VOL% (35.7-47.0); Hemoglobin 9.6 GM/DL (12.0-16.0); Immature Granulocytes % 1.1 %; Immature Granulocytes Absolute 0.12 #; Lymphocytes # 0.9 10*3/uL (1.4-4.0); Lymphocytes % 7.9 % (21.3-54.2); Mean Corpuscular HGB Conc 28.2 GM/DL (32-36); Mean Corpuscular Volume 82.4 FL (87-102); Mean Platelet Volume 9.3 FL (9.6-12.0); Monocytes % 3.7 % (1.7-12.7); NRBC # 0.02 10*3/uL; Neutrophils % 87.2 % (38.7-73.9); Platelet Count 425 T/CUMM (130-400); Red Blood Count 4.14 MC/CUMM (3.8-5.5); Red Cell Distribution Width 18.3 % (9.3-17.3); Thyroid Stimulating Hormone 0.321 uIU/ml (0.358-3.74); White Blood Count 10.8 T/CUMM (4-12)
[2019-06-02 05:58] LABS: Hypochromasia 1+
[2019-06-02 05:59] LABS: Platelet Estimate Normal; Polychromasia Few
[2019-06-02] MEDS: FERROUS SULFATE 325 MG TABLET PO SCH ×2 (08:47→21:20)
[2019-06-02] MEDS: MULTIVITAMIN (CENTRUM) TABLET PO SCH (08:47)
[2019-06-02] MEDS: METOCLOPRAMIDE 10 MG/10 ML UDCUP PO SCH ×4 (08:47→21:18)
[2019-06-02] MEDS: THEOPHYLLINE ER (24 HR) 200 MG CAPSULE PO SCH ×2 (08:47→21:19)
[2019-06-02] MEDS: INSULIN REGULAR 100 UNIT/ML SUBCUT SCH ×4 (08:47→21:20)
[2019-06-02] MEDS: carvediloL 12.5 MG TABLET PO SCH ×2 (08:47→21:20)
[2019-06-02] MEDS: methylPREDNISolone SOD SUC 40 MG/1 ML VIAL IV SCH ×2 (08:48→21:18)
[2019-06-02] MEDS: GABAPENTIN 300 MG CAPSULE PO SCH (08:48)
[2019-06-02] MEDS: FLUoxetine 20 MG CAPSULE PO SCH (08:48)
[2019-06-02] MEDS: MONTELUKAST 10 MG TABLET PO SCH (08:48)
[2019-06-02] MEDS: PANTOPRAZOLE 40 MG TABLET PO SCH ×2 (08:48→21:19)
[2019-06-02] MEDS: INSULIN NPH 100 UNIT/ML SUBCUT SCH ×2 (08:59→16:22)
[2019-06-02] MEDS: POTASSIUM CHLORIDE 20 MEQ TABLET PO SCH (14:13)
[2019-06-02] MEDS: FUROSEMIDE 20 MG TABLET PO SCH (14:13)
[2019-06-02] MEDS ORDERED: MAGNESIUM HYDROXIDE SUSP 30 ML UDCUP PO PRN (14:27)
[2019-06-02] MEDS: NYSTATIN 500,000 UNIT/5 ML UDCUP SWISH/SWAL SCH ×2 (16:22→21:19)
[2019-06-02] MEDS: METHOCARBAMOL 750 MG TABLET PO PRN ×2 (17:21→21:19)
[2019-06-02] MEDS: KETOROLAC 10 MG TABLET PO PRN (17:21)
[2019-06-02] MEDS: ENOXAPARIN 40 MG/0.4 ML SYRINGE SUBCUT SCH (21:18)
[2019-06-02] MEDS: CETIRIZINE 10 MG TABLET PO SCH (21:19)
[2019-06-02] MEDS: MELATONIN 3 MG TABLET PO SCH (21:19)
[2019-06-02] MEDS: MULTIVITAMIN (BEROCCA) TABLET PO SCH (21:20)
[2019-06-02] MEDS: MIRTAZAPINE 30 MG TABLET PO SCH (21:20)
[2019-06-02] MEDS: GABAPENTIN 600 MG TABLET PO SCH (21:20)
[2019-06-02] MEDS: lisinopriL 10 MG TABLET PO SCH (21:20)
[2019-06-03] MEDS: ALBUTEROL/IPRATROPIUM 3 ML NEB RESP TX SCH ×4 (01:00→20:44)
[2019-06-03] MEDS: MEROPENEM 500 MG in SODIUM CHLORIDE 0.9% 100 ML IV SCH ×4 (01:57→20:58)
[2019-06-03 06:22] LABS: Basophils % 0.2 % (0.0-0.8); Hematocrit 37.1 VOL% (35.7-47.0); Immature Granulocytes % 0.9 %; Lymphocytes # 1.2 10*3/uL (1.4-4.0); Lymphocytes % 9.9 % (21.3-54.2); Mean Corpuscular Volume 81.9 FL (87-102); Mean Platelet Volume 9.2 FL (9.6-12.0); Monocytes % 4.3 % (1.7-12.7); Neutrophils % 84.7 % (38.7-73.9); Platelet Count 483 T/CUMM (130-400); Red Blood Count 4.53 MC/CUMM (3.8-5.5); Red Cell Distribution Width 18.9 % (9.3-17.3); White Blood Count 11.7 T/CUMM (4-12)
[2019-06-03 06:27] LABS: Hemoglobin 10.4 GM/DL (12.0-16.0)
[2019-06-03 06:47] LABS: Platelet Estimate Adequate
[2019-06-03 06:48] LABS: Hypochromasia 1+; Macrocytosis Slight; Polychromasia Slight
[2019-06-03] MEDS: methylPREDNISolone SOD SUC 40 MG/1 ML VIAL IV SCH ×2 (08:27→20:57)
[2019-06-03] MEDS: MULTIVITAMIN (CENTRUM) TABLET PO SCH (08:28)
[2019-06-03] MEDS: METOCLOPRAMIDE 10 MG/10 ML UDCUP PO SCH ×4 (08:28→20:57)
[2019-06-03] MEDS: INSULIN NPH 100 UNIT/ML SUBCUT SCH ×2 (08:28→16:52)
[2019-06-03] MEDS: INSULIN REGULAR 100 UNIT/ML SUBCUT SCH ×4 (08:28→20:58)
[2019-06-03] MEDS: MONTELUKAST 10 MG TABLET PO SCH (08:28)
[2019-06-03] MEDS: FUROSEMIDE 20 MG TABLET PO SCH (08:29)
[2019-06-03] MEDS: FLUoxetine 20 MG CAPSULE PO SCH (08:29)
[2019-06-03] MEDS: GABAPENTIN 300 MG CAPSULE PO SCH (08:29)
[2019-06-03] MEDS: NYSTATIN 500,000 UNIT/5 ML UDCUP SWISH/SWAL SCH ×4 (08:29→20:57)
[2019-06-03] MEDS: POTASSIUM CHLORIDE 20 MEQ TABLET PO SCH (08:29)
[2019-06-03] MEDS: FERROUS SULFATE 325 MG TABLET PO SCH ×2 (08:29→20:56)
[2019-06-03] MEDS: THEOPHYLLINE ER (24 HR) 200 MG CAPSULE PO SCH ×2 (08:29→20:55)
[2019-06-03] MEDS: PANTOPRAZOLE 40 MG TABLET PO SCH ×2 (08:30→20:57)
[2019-06-03] MEDS: carvediloL 12.5 MG TABLET PO SCH ×2 (08:30→20:56)
[2019-06-03] MEDS: KETOROLAC 10 MG TABLET PO PRN ×2 (16:59→23:11)
[2019-06-03] MEDS: METHOCARBAMOL 750 MG TABLET PO PRN ×2 (17:00→23:18)
[2019-06-03] MEDS ORDERED: PROMETHAZINE 25 MG TABLET PO PRN (18:42)
[2019-06-03] MEDS: MELATONIN 3 MG TABLET PO SCH (20:55)
[2019-06-03] MEDS: GABAPENTIN 600 MG TABLET PO SCH (20:56)
[2019-06-03] MEDS: lisinopriL 10 MG TABLET PO SCH (20:56)
[2019-06-03] MEDS: MULTIVITAMIN (BEROCCA) TABLET PO SCH (20:56)
[2019-06-03] MEDS: MIRTAZAPINE 30 MG TABLET PO SCH (20:56)
[2019-06-03] MEDS: ENOXAPARIN 40 MG/0.4 ML SYRINGE SUBCUT SCH (20:57)
[2019-06-03] MEDS: CETIRIZINE 10 MG TABLET PO SCH (21:33)
[2019-06-04] MEDS: ALBUTEROL/IPRATROPIUM 3 ML NEB RESP TX SCH ×4 (00:43→18:50)
[2019-06-04] MEDS: MEROPENEM 500 MG in SODIUM CHLORIDE 0.9% 100 ML IV SCH ×4 (02:15→20:49)
[2019-06-04 06:04] LABS: Calcium 8.7 MG/DL (8.5-10.1); Osmolality,Calculated 282.5 MOS/KG (273-304)
[2019-06-04 06:30] LABS: Basophils % 0.2 % (0.0-0.8); Eosinophils % 0.1 % (0.00-10.9); Hemoglobin 11.1 GM/DL (12.0-16.0); Immature Granulocytes % 0.9 %; Immature Granulocytes Absolute 0.09 #; Lymphocytes # 1.2 10*3/uL (1.4-4.0); Lymphocytes % 12.3 % (21.3-54.2); Mean Corpuscular HGB Conc 27.8 GM/DL (32-36); Mean Platelet Volume 9.2 FL (9.6-12.0); Monocytes % 4.9 % (1.7-12.7); Neutrophils % 81.6 % (38.7-73.9); Platelet Count 463 T/CUMM (130-400); Red Blood Count 4.88 MC/CUMM (3.8-5.5); Red Cell Distribution Width 19.1 % (9.3-17.3); White Blood Count 9.8 T/CUMM (4-12)
[2019-06-04 06:40] LABS: Hypochromasia 1+; Platelet Estimate Adequate
[2019-06-04 06:41] LABS: Macrocytosis Slight
[2019-06-04] MEDS: methylPREDNISolone SOD SUC 40 MG/1 ML VIAL IV SCH ×2 (09:04→21:52)
[2019-06-04] MEDS: INSULIN REGULAR 100 UNIT/ML SUBCUT SCH ×4 (09:04→20:59)
[2019-06-04] MEDS: PANTOPRAZOLE 40 MG TABLET PO SCH ×2 (09:04→20:50)
[2019-06-04] MEDS: NYSTATIN 500,000 UNIT/5 ML UDCUP SWISH/SWAL SCH ×4 (09:04→20:51)
[2019-06-04] MEDS: INSULIN NPH 100 UNIT/ML SUBCUT SCH ×2 (09:04→17:30)
[2019-06-04] MEDS: THEOPHYLLINE ER (24 HR) 200 MG CAPSULE PO SCH ×2 (09:05→20:49)
[2019-06-04] MEDS: MULTIVITAMIN (CENTRUM) TABLET PO SCH (09:05)
[2019-06-04] MEDS: METOCLOPRAMIDE 10 MG/10 ML UDCUP PO SCH ×4 (09:05→20:51)
[2019-06-04] MEDS: POTASSIUM CHLORIDE 20 MEQ TABLET PO SCH (09:06)
[2019-06-04] MEDS: GABAPENTIN 300 MG CAPSULE PO SCH (09:06)
[2019-06-04] MEDS: carvediloL 12.5 MG TABLET PO SCH ×2 (09:06→20:50)
[2019-06-04] MEDS: FUROSEMIDE 20 MG TABLET PO SCH (09:06)
[2019-06-04] MEDS: FERROUS SULFATE 325 MG TABLET PO SCH ×2 (09:06→20:49)
[2019-06-04] MEDS: MONTELUKAST 10 MG TABLET PO SCH (09:06)
[2019-06-04] MEDS: FLUoxetine 20 MG CAPSULE PO SCH (09:06)
[2019-06-04 11:09] LABS: Albumin 3.4 G/DL (3.4-5.0); Bilirubin,Direct 0.13 MG/DL (0.0-0.20); Bilirubin,Indirect 0.8 MG/DL (0.0-1.0); Bilirubin,Total 0.9 MG/DL (0.2-1.0); Total Protein 6.9 G/DL (6.4-8.3)
[2019-06-04 13:14] LABS: Folate > 24.0 NG/ML (5.4-24.0); Vitamin B12 321 PG/ML (211-911)
[2019-06-04] MEDS: ENOXAPARIN 40 MG/0.4 ML SYRINGE SUBCUT SCH (20:50)
[2019-06-04] MEDS: lisinopriL 10 MG TABLET PO SCH (20:50)
[2019-06-04] MEDS: GABAPENTIN 600 MG TABLET PO SCH (20:50)
[2019-06-04] MEDS: MULTIVITAMIN (BEROCCA) TABLET PO SCH (20:50)
[2019-06-04] MEDS: MELATONIN 3 MG TABLET PO SCH (20:50)
[2019-06-04] MEDS: METHOCARBAMOL 750 MG TABLET PO PRN (20:58)
[2019-06-04] MEDS: MIRTAZAPINE 30 MG TABLET PO SCH (20:58)
[2019-06-04] MEDS: KETOROLAC 10 MG TABLET PO PRN (20:58)
[2019-06-04] MEDS: CETIRIZINE 10 MG TABLET PO SCH (21:52)
[2019-06-05] MEDS: ALBUTEROL/IPRATROPIUM 3 ML NEB RESP TX SCH ×3 (00:30→13:24)
[2019-06-05] MEDS: MEROPENEM 500 MG in SODIUM CHLORIDE 0.9% 100 ML IV SCH ×2 (03:10→08:50)
[2019-06-05 07:00] LABS: Albumin 3.2 G/DL (3.4-5.0); Bilirubin,Total 0.7 MG/DL (0.2-1.0); Calcium 8.4 MG/DL (8.5-10.1); Osmolality,Calculated 289.7 MOS/KG (273-304); Total Protein 6.4 G/DL (6.4-8.3)
[2019-06-05 07:06] LABS: Basophils % 0.1 % (0.0-0.8); Eosinophils % 0.2 % (0.00-10.9); Hemoglobin 10.8 GM/DL (12.0-16.0); Immature Granulocytes % 0.9 %; Immature Granulocytes Absolute 0.08 #; Lymphocytes # 1.2 10*3/uL (1.4-4.0); Lymphocytes % 13.7 % (21.3-54.2); Mean Corpuscular HGB Conc 28.4 GM/DL (32-36); Mean Platelet Volume 9.1 FL (9.6-12.0); Monocytes % 3.9 % (1.7-12.7); Neutrophils % 81.2 % (38.7-73.9); Platelet Count 401 T/CUMM (130-400); Red Blood Count 4.69 MC/CUMM (3.8-5.5); Red Cell Distribution Width 18.9 % (9.3-17.3); White Blood Count 8.7 T/CUMM (4-12)
[2019-06-05 07:17] LABS: Hypochromasia 1+; Platelet Estimate Adequate
[2019-06-05] MEDS: METOCLOPRAMIDE 10 MG/10 ML UDCUP PO SCH ×2 (08:34→12:00)
[2019-06-05] MEDS: NYSTATIN 500,000 UNIT/5 ML UDCUP SWISH/SWAL SCH ×2 (08:34→14:49)
[2019-06-05] MEDS: POTASSIUM CHLORIDE 20 MEQ TABLET PO SCH (08:35)
[2019-06-05] MEDS: PANTOPRAZOLE 40 MG TABLET PO SCH (08:35)
[2019-06-05] MEDS: MULTIVITAMIN (CENTRUM) TABLET PO SCH (08:35)
[2019-06-05] MEDS: THEOPHYLLINE ER (24 HR) 200 MG CAPSULE PO SCH (08:35)
[2019-06-05] MEDS: FERROUS SULFATE 325 MG TABLET PO SCH (08:35)
[2019-06-05] MEDS: GABAPENTIN 300 MG CAPSULE PO SCH (08:35)
[2019-06-05] MEDS: FLUoxetine 20 MG CAPSULE PO SCH (08:35)
[2019-06-05] MEDS: FUROSEMIDE 20 MG TABLET PO SCH (08:35)
[2019-06-05] MEDS: MONTELUKAST 10 MG TABLET PO SCH (08:35)
[2019-06-05] MEDS: INSULIN NPH 100 UNIT/ML SUBCUT SCH (08:35)
[2019-06-05] MEDS: carvediloL 12.5 MG TABLET PO SCH (08:35)
[2019-06-05] MEDS: INSULIN REGULAR 100 UNIT/ML SUBCUT SCH ×2 (08:36→12:00)
[2019-06-05] MEDS: methylPREDNISolone SOD SUC 40 MG/1 ML VIAL IV SCH (08:36)
[2019-06-05] MEDS: KETOROLAC 10 MG TABLET PO PRN (11:54)
[2019-06-05] MEDS: METHOCARBAMOL 750 MG TABLET PO PRN (11:54)
[2019-06-05 12:13] VITALS: BP 143/66
== END 2019-06-05 15:38 | disposition home or self-care (01) | DRG 190 ==
LOC: EDBD → EDUNIT# → N.ED 15:29 → SUATTDRO 18:28 → N.EDINP 18:28 → N.2E 19:54 → UNDODISIN 06-05 11:05
PROVIDERS: ADMIT Internal Medicine; ATTEND Internal Medicine

== ENCOUNTER 2019-07-06 16:53 | Inpatient (IN) ==
[2019-07-06] MEDS ORDERED: methylPREDNISolone SOD SUC 125 MG/2 ML VIAL IV STA (17:26)
[2019-07-06] MEDS ORDERED: SODIUM CHLORIDE 0.9% 500 ML IV STA (17:27)
[2019-07-06] MEDS ORDERED: ALBUTEROL NEB SOLN 5 MG/ML 20 ML/BOTTLE CONT NEB SCH (17:30)
[2019-07-06 17:56] LABS: Albumin 2.9 G/DL (3.4-5.0); Bilirubin,Total 0.5 MG/DL (0.2-1.0); Calcium 9.2 MG/DL (8.5-10.1); Osmolality,Calculated 279.8 MOS/KG (273-304); Total Protein 5.7 G/DL (6.4-8.3)
[2019-07-06] MEDS ORDERED: cefTRIAXone 1,000 MG in SODIUM CHLORIDE 0.9% 100 ML IV STA (18:02)
[2019-07-06 18:06] LABS: ABG Base Excess 14.2 MMOL/L (-2.5-2.5); ABG HCO3 38.1 MMOL/L (20-26); ABG Oxygen Saturation 98.7 % (95-100); ABG PH 7.373 (7.35-7.45); ABG TCO2 39.2 MMOL/L (23-27); Allen Test Positive
[2019-07-06 18:07] LABS: Basophils # 0.1 10*3/uL (0.0-0.2); Basophils % 0.8 % (0.0-0.8); Eosinophils # 0.1 10*3/uL (0.0-0.87); Eosinophils % 0.8 % (0.00-10.9); Hematocrit 31.2 VOL% (35.7-47.0); Hemoglobin 8.8 GM/DL (12.0-16.0); Immature Granulocytes % 0.8 %; Lymphocytes # 1.9 10*3/uL (1.4-4.0); Lymphocytes % 14.5 % (21.3-54.2); Mean Corpuscular HGB Conc 28.2 GM/DL (32-36); Mean Corpuscular Volume 81.7 FL (87-102); Mean Platelet Volume 9.4 FL (9.6-12.0); Monocytes % 10.6 % (1.7-12.7); NRBC # 0.04 10*3/uL; Neutrophils % 72.5 % (38.7-73.9); Platelet Count 464 T/CUMM (130-400); Red Blood Count 3.82 MC/CUMM (3.8-5.5); Red Cell Distribution Width 21.1 % (9.3-17.3); White Blood Count 13.2 T/CUMM (4-12)
[2019-07-06 18:08] LABS: ABG PCO2 72.7 MM HG (35-48)
[2019-07-06 18:20] LABS: Anisocytosis Slight; Hypochromasia 1+; Microcytosis 1+; Polychromasia Few
[2019-07-06 18:21] LABS: Ovalocytes Few; Platelet Estimate Adequate
[2019-07-06 18:28] LABS: Apearance,Urine CLEAR (Clear); Bilirubin,Urine Negative (Negative); Blood, Urine Negative (Negative); Glucose,Urine (UA) Negative (Negative); Hyaline Casts,Urine 50 /LPF (0-3); Ketones,Urine Negative (Negative); Mucus,Urine Occasional /LPF (Occasional); Nitrite,Urine Negative (Negative); Protein,Urine 30 MG/DL; RBC,Urine <1 /HPF (0-4); Squamous Epithelial Cell,Urine Occasional /HPF (0-10); Urine Color Yellow (Yellow); Urine Specific Gravity 1.013 (1.001-1.035); WBC,Urine 2 /HPF (0-6)
[2019-07-06] MEDS ORDERED: POTASSIUM CHLORIDE RIDER 20 MEQ in PREMIX 1 EACH IV ONE (18:39)
[2019-07-06 18:43] LABS: Barbiturates Screen,Urine Negative (Negative); Benzodiazepines Screen,Urine Negative (Negative); Cannabinoid Screen,Urine Negative (Negative); Opiate Screen,Urine Negative (Negative); Phencyclidine Screen,Urine Negative (Negative)
[2019-07-06] MEDS ORDERED: GLUCAGON 1 MG VIAL IM PRN (19:42)
[2019-07-06] MEDS ORDERED: DEXTROSE 10% 250 ML BAG IV PRN (19:42)
[2019-07-06] MEDS ORDERED: POTASSIUM CHLORIDE 20 MEQ TABLET PO PRN (20:12)
[2019-07-06] MEDS ORDERED: POTASSIUM CHLORIDE 20 MEQ TABLET PO STA (20:15)
[2019-07-06] MEDS: cefTRIAXone 1,000 MG in SYRINGE 1 EACH IV SCH (22:17)
[2019-07-06] MEDS: INSULIN LISPRO 100 UNIT/ML SUBCUT SCH (22:17)
[2019-07-06] MEDS: ENOXAPARIN 40 MG/0.4 ML SYRINGE SUBCUT SCH (22:18)
[2019-07-06] MEDS: GABAPENTIN 600 MG TABLET PO SCH (22:18)
[2019-07-06] MEDS: ALBUTEROL/IPRATROPIUM 3 ML NEB RESP TX SCH (23:40)
[2019-07-07] MEDS: methylPREDNISolone SOD SUC 40 MG/1 ML VIAL IV SCH ×3 (02:52→18:29)
[2019-07-07] MEDS: ALBUTEROL/IPRATROPIUM 3 ML NEB RESP TX SCH ×5 (03:30→19:58)
[2019-07-07 06:03] LABS: Calcium 8.9 MG/DL (8.5-10.1)
[2019-07-07 06:04] LABS: Folate 19.6 NG/ML (5.4-24.0); Vitamin B12 563 PG/ML (211-911)
[2019-07-07 06:06] LABS: Basophils % 0.2 % (0.0-0.8); Hematocrit 31.9 VOL% (35.7-47.0); Immature Granulocytes % 0.8 %; Immature Granulocytes Absolute 0.07 #; Lymphocytes # 0.8 10*3/uL (1.4-4.0); Lymphocytes % 8.8 % (21.3-54.2); Mean Corpuscular HGB Conc 28.2 GM/DL (32-36); Mean Corpuscular Volume 81.6 FL (87-102); Mean Platelet Volume 9.5 FL (9.6-12.0); Monocytes % 0.8 % (1.7-12.7); NRBC # 0.02 10*3/uL; Neutrophils % 89.4 % (38.7-73.9); Platelet Count 442 T/CUMM (130-400); Red Blood Count 3.91 MC/CUMM (3.8-5.5); Red Cell Distribution Width 21.3 % (9.3-17.3); White Blood Count 8.7 T/CUMM (4-12)
[2019-07-07 06:12] LABS: Anisocytosis 1+; Basophilic Stippling Slight; Platelet Estimate Normal; Stomatocytes Few
[2019-07-07 06:13] LABS: Hypochromasia Slight
[2019-07-07 06:32] LABS: Sedimentation Rate-Westergren 28 MM/HR (0-30)
[2019-07-07] MEDS: INSULIN LISPRO 100 UNIT/ML SUBCUT SCH ×4 (08:18→20:32)
[2019-07-07] MEDS: ASPIRIN EC 81 MG TABLET PO SCH (08:19)
[2019-07-07] MEDS ORDERED: FUROSEMIDE 20 MG/2 ML VIAL IV ONE (09:53)
[2019-07-07] MEDS: POTASSIUM CHLORIDE 20 MEQ TABLET PO SCH ×2 (10:54→13:31)
[2019-07-07 14:14] LABS: Apearance,Urine CLEAR (Clear); Bacteria,Urine Occasional /HPF (Few); Bilirubin,Urine Negative (Negative); Blood, Urine Negative (Negative); Glucose,Urine (UA) 150 mg/dL (Negative); Ketones,Urine Negative (Negative); Nitrite,Urine Negative (Negative); Protein,Urine Negative; Squamous Epithelial Cell,Urine Occasional /HPF (0-10); Urine Color Yellow (Yellow); Urine Specific Gravity 1.006 (1.001-1.035); Urine Urobilinogen < 2.0 EU/DL (0.2-1.0); WBC,Urine 1 /HPF (0-6)
[2019-07-07] MEDS ORDERED: METHOCARBAMOL 750 MG TABLET PO PRN (15:11)
[2019-07-07] MEDS: FLUCONAZOLE 100 MG TABLET PO SCH (15:48)
[2019-07-07] MEDS: FUROSEMIDE 20 MG/2 ML VIAL IV SCH (15:49)
[2019-07-07] MEDS: INSULIN NPH 100 UNIT/ML SUBCUT SCH (17:30)
[2019-07-07] MEDS: METOCLOPRAMIDE 10 MG/10 ML UDCUP PO SCH ×2 (17:31→20:31)
[2019-07-07] MEDS: cefTRIAXone 1,000 MG in SYRINGE 1 EACH IV SCH (18:26)
[2019-07-07] MEDS: GABAPENTIN 600 MG TABLET PO SCH (20:30)
[2019-07-07] MEDS: THEOPHYLLINE ER (24 HR) 400 MG TABLET PO SCH (20:30)
[2019-07-07] MEDS: carvediloL 12.5 MG TABLET PO SCH (20:31)
[2019-07-07] MEDS: MELATONIN 3 MG TABLET PO SCH (20:31)
[2019-07-07] MEDS: PANTOPRAZOLE 40 MG TABLET PO SCH (20:31)
[2019-07-07] MEDS: MIRTAZAPINE 30 MG TABLET PO SCH (20:31)
[2019-07-07] MEDS: lisinopriL 10 MG TABLET PO SCH (20:31)
[2019-07-07] MEDS: CETIRIZINE 10 MG TABLET PO SCH (20:31)
[2019-07-07] MEDS: ENOXAPARIN 40 MG/0.4 ML SYRINGE SUBCUT SCH (20:32)
[2019-07-07] MEDS: ALBUTEROL 0.4 MG/ML 30 ML/BOTTLE PO SCH (20:32)
[2019-07-07] MEDS ORDERED: BISACODYL 5 MG TABLET PO PRN (21:00)
[2019-07-08] MEDS: ALBUTEROL/IPRATROPIUM 3 ML NEB RESP TX SCH ×6 (00:01→20:12)
[2019-07-08] MEDS: methylPREDNISolone SOD SUC 40 MG/1 ML VIAL IV SCH ×3 (01:15→16:52)
[2019-07-08] MEDS: ALBUTEROL 0.4 MG/ML 30 ML/BOTTLE PO SCH ×4 (01:18→18:12)
[2019-07-08 05:43] LABS: Calcium 8.8 MG/DL (8.5-10.1); Osmolality,Calculated 282.7 MOS/KG (273-304)
[2019-07-08] MEDS: INSULIN LISPRO 100 UNIT/ML SUBCUT SCH ×4 (08:36→20:25)
[2019-07-08] MEDS: INSULIN NPH 100 UNIT/ML SUBCUT SCH ×2 (08:37→16:51)
[2019-07-08] MEDS: THEOPHYLLINE ER (24 HR) 400 MG TABLET PO SCH ×2 (08:37→20:24)
[2019-07-08] MEDS: FUROSEMIDE 20 MG/2 ML VIAL IV SCH ×2 (08:37→15:57)
[2019-07-08] MEDS: MONTELUKAST 10 MG TABLET PO SCH (08:37)
[2019-07-08] MEDS: METOCLOPRAMIDE 10 MG/10 ML UDCUP PO SCH ×4 (08:37→20:25)
[2019-07-08] MEDS: GABAPENTIN 300 MG CAPSULE PO SCH (08:38)
[2019-07-08] MEDS: POTASSIUM CHLORIDE 20 MEQ TABLET PO SCH (08:38)
[2019-07-08] MEDS: FLUCONAZOLE 100 MG TABLET PO SCH (08:38)
[2019-07-08] MEDS: ASPIRIN EC 81 MG TABLET PO SCH (08:38)
[2019-07-08] MEDS: PANTOPRAZOLE 40 MG TABLET PO SCH ×2 (08:38→20:24)
[2019-07-08] MEDS: carvediloL 12.5 MG TABLET PO SCH ×2 (08:38→16:51)
[2019-07-08] MEDS: FLUoxetine 20 MG CAPSULE PO SCH (08:42)
[2019-07-08] MEDS ORDERED: FUROSEMIDE 20 MG TABLET PO SCH (09:00)
[2019-07-08] MEDS ORDERED: BISACODYL 10 MG SUPP RECTAL PRN (09:21)
[2019-07-08] MEDS: POLYETHYLENE GLYCOL POWDER 17 GM PACK PO SCH ×2 (10:20→20:25)
[2019-07-08] MEDS: CHLORTHALIDONE 25 MG TABLET PO SCH (12:50)
[2019-07-08] MEDS ORDERED: FUROSEMIDE 20 MG/2 ML VIAL IV ONE (16:00)
[2019-07-08] MEDS: cefTRIAXone 1,000 MG in SYRINGE 1 EACH IV SCH (18:13)
[2019-07-08] MEDS: GABAPENTIN 600 MG TABLET PO SCH (20:24)
[2019-07-08] MEDS: CETIRIZINE 10 MG TABLET PO SCH (20:24)
[2019-07-08] MEDS: MIRTAZAPINE 30 MG TABLET PO SCH (20:24)
[2019-07-08] MEDS: lisinopriL 10 MG TABLET PO SCH (20:24)
[2019-07-08] MEDS: MELATONIN 3 MG TABLET PO SCH (20:24)
[2019-07-08] MEDS: ENOXAPARIN 40 MG/0.4 ML SYRINGE SUBCUT SCH (20:25)
[2019-07-09] MEDS: ALBUTEROL 0.4 MG/ML 30 ML/BOTTLE PO SCH ×4 (00:01→17:00)
[2019-07-09] MEDS: ALBUTEROL/IPRATROPIUM 3 ML NEB RESP TX SCH ×6 (00:30→20:35)
[2019-07-09] MEDS ORDERED: ACETAMINOPHEN 325 MG TABLET PO PRN (04:51)
[2019-07-09 04:58] LABS: Basophils % 0.1 % (0.0-0.8); Immature Granulocytes % 0.6 %; Immature Granulocytes Absolute 0.07 #; Lymphocytes # 0.5 10*3/uL (1.4-4.0); Lymphocytes % 4.3 % (21.3-54.2); Mean Corpuscular HGB Conc 27.7 GM/DL (32-36); Mean Corpuscular Volume 82.3 FL (87-102); Mean Platelet Volume 9.4 FL (9.6-12.0); Monocytes % 3.3 % (1.7-12.7); Neutrophils % 91.7 % (38.7-73.9); Platelet Count 531 T/CUMM (130-400); Red Blood Count 4.17 MC/CUMM (3.8-5.5); Red Cell Distribution Width 20.6 % (9.3-17.3); White Blood Count 11.3 T/CUMM (4-12)
[2019-07-09 05:39] LABS: Calcium 8.6 MG/DL (8.5-10.1); Osmolality,Calculated 287.2 MOS/KG (273-304)
[2019-07-09 05:42] LABS: Hematocrit 33.7 VOL% (35.7-47.0)
[2019-07-09 05:43] LABS: Hemoglobin 9.5 GM/DL (12.0-16.0)
[2019-07-09 05:45] LABS: Hypochromasia 2+; Lymphocytes 1 % (20-55); Ovalocytes Slight; Platelet Estimate Adequate; Segmented Neutrophils 98 % (50-85); Total Cells Counted 100
[2019-07-09] MEDS: PANTOPRAZOLE 40 MG TABLET PO SCH ×2 (09:39→21:11)
[2019-07-09] MEDS: GABAPENTIN 300 MG CAPSULE PO SCH (09:39)
[2019-07-09] MEDS: THEOPHYLLINE ER (24 HR) 400 MG TABLET PO SCH ×2 (09:39→21:10)
[2019-07-09] MEDS: FLUCONAZOLE 100 MG TABLET PO SCH (09:39)
[2019-07-09] MEDS: METOCLOPRAMIDE 10 MG/10 ML UDCUP PO SCH ×4 (09:39→21:12)
[2019-07-09] MEDS: ASPIRIN EC 81 MG TABLET PO SCH (09:39)
[2019-07-09] MEDS: FLUoxetine 20 MG CAPSULE PO SCH (09:39)
[2019-07-09] MEDS: carvediloL 12.5 MG TABLET PO SCH ×2 (09:40→17:00)
[2019-07-09] MEDS: POTASSIUM CHLORIDE 20 MEQ TABLET PO SCH (09:40)
[2019-07-09] MEDS: MONTELUKAST 10 MG TABLET PO SCH (09:40)
[2019-07-09] MEDS: POLYETHYLENE GLYCOL POWDER 17 GM PACK PO SCH ×2 (09:40→21:10)
[2019-07-09] MEDS: CHLORTHALIDONE 25 MG TABLET PO SCH (09:40)
[2019-07-09] MEDS: INSULIN NPH 100 UNIT/ML SUBCUT SCH ×2 (09:41→16:59)
[2019-07-09] MEDS: INSULIN LISPRO 100 UNIT/ML SUBCUT SCH ×4 (09:42→22:22)
[2019-07-09] MEDS: methylPREDNISolone SOD SUC 40 MG/1 ML VIAL IV SCH ×3 (09:48→21:09)
[2019-07-09] MEDS: FUROSEMIDE 20 MG/2 ML VIAL IV SCH ×2 (09:48→16:59)
[2019-07-09 09:59] LABS: Hemoglobin A1 (Alkaline) 97.9 % (96.5-98.5); Hemoglobin A2 (Alkaline) 2.1 % (1.5-3.5)
[2019-07-09] MEDS: CLINDAMYCIN INJ 300 MG in PREMIX 1 EACH IV SCH ×2 (13:48→22:02)
[2019-07-09] MEDS: cefTRIAXone 1,000 MG in SYRINGE 1 EACH IV SCH (18:03)
[2019-07-09] MEDS: MELATONIN 3 MG TABLET PO SCH (21:09)
[2019-07-09] MEDS: CETIRIZINE 10 MG TABLET PO SCH (21:10)
[2019-07-09] MEDS: ENOXAPARIN 40 MG/0.4 ML SYRINGE SUBCUT SCH (21:10)
[2019-07-09] MEDS: MIRTAZAPINE 30 MG TABLET PO SCH (21:11)
[2019-07-09] MEDS: GABAPENTIN 600 MG TABLET PO SCH (21:11)
[2019-07-09] MEDS: lisinopriL 10 MG TABLET PO SCH (21:14)
[2019-07-10] MEDS: ALBUTEROL/IPRATROPIUM 3 ML NEB RESP TX SCH ×7 (00:13→23:52)
[2019-07-10] MEDS: ALBUTEROL 0.4 MG/ML 30 ML/BOTTLE PO SCH ×5 (00:38→23:39)
[2019-07-10] MEDS: CLINDAMYCIN INJ 300 MG in PREMIX 1 EACH IV SCH ×3 (05:24→22:06)
[2019-07-10] MEDS: INSULIN NPH 100 UNIT/ML SUBCUT SCH ×2 (09:47→17:06)
[2019-07-10] MEDS: FUROSEMIDE 20 MG/2 ML VIAL IV SCH ×2 (09:48→17:05)
[2019-07-10] MEDS: INSULIN LISPRO 100 UNIT/ML SUBCUT SCH ×4 (09:48→22:27)
[2019-07-10] MEDS: METOCLOPRAMIDE 10 MG/10 ML UDCUP PO SCH ×4 (09:49→22:02)
[2019-07-10] MEDS: POLYETHYLENE GLYCOL POWDER 17 GM PACK PO SCH ×2 (09:50→22:03)
[2019-07-10] MEDS: ASPIRIN EC 81 MG TABLET PO SCH (09:50)
[2019-07-10] MEDS: MONTELUKAST 10 MG TABLET PO SCH (09:50)
[2019-07-10] MEDS: FLUoxetine 20 MG CAPSULE PO SCH (09:50)
[2019-07-10] MEDS: THEOPHYLLINE ER (24 HR) 400 MG TABLET PO SCH ×2 (09:51→22:02)
[2019-07-10] MEDS: POTASSIUM CHLORIDE 20 MEQ TABLET PO SCH (09:51)
[2019-07-10] MEDS: GABAPENTIN 300 MG CAPSULE PO SCH (09:51)
[2019-07-10] MEDS: PANTOPRAZOLE 40 MG TABLET PO SCH ×2 (09:51→22:02)
[2019-07-10] MEDS: FLUCONAZOLE 100 MG TABLET PO SCH (09:51)
[2019-07-10] MEDS: carvediloL 12.5 MG TABLET PO SCH ×2 (09:52→17:06)
[2019-07-10] MEDS: CHLORTHALIDONE 25 MG TABLET PO SCH (09:52)
[2019-07-10] MEDS: methylPREDNISolone SOD SUC 40 MG/1 ML VIAL IV SCH (09:53)
[2019-07-10] MEDS: predniSONE 20 MG TABLET PO SCH (09:58)
[2019-07-10 10:02] LABS: Calcium 9.2 MG/DL (8.5-10.1); Osmolality,Calculated 277.7 MOS/KG (273-304)
[2019-07-10 10:08] LABS: ABG Base Excess 15.5 MMOL/L (-2.5-2.5); ABG HCO3 39.4 MMOL/L (20-26); ABG Oxygen Saturation 93.2 % (95-100); ABG PCO2 58.5 MM HG (35-48); ABG PH 7.467 (7.35-7.45); ABG PO2 65.1 MM HG (80-95); ABG TCO2 37.7 MMOL/L (23-27)
[2019-07-10 10:49] LABS: Hematocrit 40.1 VOL% (35.7-47.0); Immature Granulocytes % 0.6 %; Immature Granulocytes Absolute 0.06 #; Lymphocytes % 9.4 % (21.3-54.2); Mean Corpuscular HGB Conc 27.7 GM/DL (32-36); Mean Corpuscular Volume 82.9 FL (87-102); Mean Platelet Volume 9.4 FL (9.6-12.0); Monocytes % 8.7 % (1.7-12.7); Neutrophils % 81.3 % (38.7-73.9); Platelet Count 694 T/CUMM (130-400); Red Blood Count 4.84 MC/CUMM (3.8-5.5); Red Cell Distribution Width 20.8 % (9.3-17.3); White Blood Count 10.6 T/CUMM (4-12)
[2019-07-10 10:50] LABS: Hemoglobin 11.1 GM/DL (12.0-16.0)
[2019-07-10 10:53] LABS: Hypochromasia 1+; Platelet Estimate Increased
[2019-07-10] MEDS: acetaZOLAMIDE 250 MG TABLET PO SCH (12:27)
[2019-07-10] MEDS: cefTRIAXone 1,000 MG in SYRINGE 1 EACH IV SCH (18:35)
[2019-07-10] MEDS: MELATONIN 3 MG TABLET PO SCH (22:01)
[2019-07-10] MEDS: MIRTAZAPINE 30 MG TABLET PO SCH (22:02)
[2019-07-10] MEDS: GABAPENTIN 600 MG TABLET PO SCH (22:02)
[2019-07-10] MEDS: lisinopriL 10 MG TABLET PO SCH (22:02)
[2019-07-10] MEDS: ENOXAPARIN 40 MG/0.4 ML SYRINGE SUBCUT SCH (22:03)
[2019-07-10] MEDS: CETIRIZINE 10 MG TABLET PO SCH (22:08)
[2019-07-11] MEDS: ALBUTEROL/IPRATROPIUM 3 ML NEB RESP TX SCH ×3 (03:26→10:32)
[2019-07-11 04:12] LABS: ABG HCO3 34.7 MMOL/L (20-26); ABG Oxygen Saturation 95.9 % (95-100); ABG PCO2 58.1 MM HG (35-48); ABG PH 7.422 (7.35-7.45); ABG PO2 80.5 MM HG (80-95); ABG TCO2 33.6 MMOL/L (23-27); Allen Test Positive
[2019-07-11] MEDS: ALBUTEROL 0.4 MG/ML 30 ML/BOTTLE PO SCH (05:15)
[2019-07-11] MEDS: CLINDAMYCIN INJ 300 MG in PREMIX 1 EACH IV SCH (05:15)
[2019-07-11 05:54] VITALS: BP 115/68
[2019-07-11] MEDS: INSULIN LISPRO 100 UNIT/ML SUBCUT SCH (09:10)
[2019-07-11] MEDS: POLYETHYLENE GLYCOL POWDER 17 GM PACK PO SCH (09:11)
[2019-07-11] MEDS: FLUoxetine 20 MG CAPSULE PO SCH (09:11)
[2019-07-11] MEDS: CHLORTHALIDONE 25 MG TABLET PO SCH (09:11)
[2019-07-11] MEDS: predniSONE 20 MG TABLET PO SCH (09:11)
[2019-07-11] MEDS: MONTELUKAST 10 MG TABLET PO SCH (09:11)
[2019-07-11] MEDS: THEOPHYLLINE ER (24 HR) 400 MG TABLET PO SCH (09:11)
[2019-07-11] MEDS: acetaZOLAMIDE 250 MG TABLET PO SCH (09:12)
[2019-07-11] MEDS: FUROSEMIDE 20 MG/2 ML VIAL IV SCH (09:12)
[2019-07-11] MEDS: carvediloL 12.5 MG TABLET PO SCH (09:12)
[2019-07-11] MEDS: ASPIRIN EC 81 MG TABLET PO SCH (09:12)
[2019-07-11] MEDS: PANTOPRAZOLE 40 MG TABLET PO SCH (09:12)
[2019-07-11] MEDS: GABAPENTIN 300 MG CAPSULE PO SCH (09:12)
[2019-07-11] MEDS: POTASSIUM CHLORIDE 20 MEQ TABLET PO SCH (09:12)
[2019-07-11] MEDS: METOCLOPRAMIDE 10 MG/10 ML UDCUP PO SCH (09:13)
[2019-07-11] MEDS: INSULIN NPH 100 UNIT/ML SUBCUT SCH (11:01)
== END 2019-07-11 12:49 | disposition home health service (06) | DRG 871 ==
LOC: EDBD → EDUNIT# → N.ED 16:53 → SUATTDRO 18:50 → N.EDINP 18:50 → N.CC 21:04 → N.5E 07-09 15:28
PROVIDERS: ADMIT Internal Medicine; ATTEND Internal Medicine

== ENCOUNTER 2019-09-21 21:53 | Inpatient (IN) ==
[2019-09-21] MEDS ORDERED: SODIUM CHLORIDE 0.9% 500 ML IV STA (22:06)
[2019-09-21] MEDS ORDERED: PROMETHAZINE 25 MG/1 ML VIAL IM STA (22:06)
[2019-09-21] MEDS ORDERED: PANTOPRAZOLE 40 MG VIAL IV STA (22:06)
[2019-09-21] MEDS ORDERED: ONDANSETRON 4 MG/2 ML VIAL IV STA (22:06)
[2019-09-21 22:22] LABS: Basophils # 0.1 10*3/uL (0.0-0.2); Basophils % 0.8 % (0.0-0.8); Eosinophils # 0.1 10*3/uL (0.0-0.87); Eosinophils % 0.8 % (0.00-10.9); Hematocrit 33.6 VOL% (35.7-47.0); Hemoglobin 10.6 GM/DL (12.0-16.0); Immature Granulocytes % 0.6 %; Immature Granulocytes Absolute 0.07 #; Lymphocytes # 2.6 10*3/uL (1.4-4.0); Lymphocytes % 23.7 % (21.3-54.2); Mean Corpuscular HGB Conc 31.5 GM/DL (32-36); Mean Corpuscular Volume 82.2 FL (87-102); Mean Platelet Volume 9.1 FL (9.6-12.0); Neutrophils % 67.1 % (38.7-73.9); Platelet Count 414 T/CUMM (130-400); Red Blood Count 4.09 MC/CUMM (3.8-5.5); Red Cell Distribution Width 17.6 % (9.3-17.3); White Blood Count 11.1 T/CUMM (4-12)
[2019-09-21 22:36] LABS: Alanine Aminotransferase 29 U/L (13-56); Albumin 3.3 G/DL (3.4-5.0); Alkaline Phosphatase 95 U/L (45-117); Amylase 178 U/L (25-115); Aspartate Amino Transferase 28 U/L (0-37); Blood Urea Nitrogen 11 MG/DL (7-18); Estimated Glom Filtration Rate 102 ML/MIN; Glucose 226 MG/DL (74-106); Osmolality,Calculated 275.1 MOS/KG (273-304); Total Protein 7.3 G/DL (6.4-8.3)
[2019-09-21] MEDS ORDERED: POTASSIUM CHLORIDE RIDER 20 MEQ in PREMIX 1 EACH IV STA (23:01)
[2019-09-21] MEDS ORDERED: POTASSIUM CHLORIDE RIDER 100 ML IV ONE (23:09)
[2019-09-21] MEDS: POTASSIUM CHLORIDE RIDER 10 MEQ in PREMIX 1 EACH IV SCH (23:20)
[2019-09-21] MEDS ORDERED: NICOTINE 21 MG/24 HR PATCH TRANSDERM PRN (23:36)
[2019-09-21] MEDS ORDERED: ALUMINUM/MAGNES/SIMETH MAX STR 30 ML UDCUP PO PRN (23:36)
[2019-09-21] MEDS ORDERED: diphenhydrAMINE CAP 25 MG CAPSULE PO PRN (23:36)
[2019-09-21] MEDS ORDERED: GLUCAGON 1 MG VIAL IM PRN (23:36)
[2019-09-21] MEDS ORDERED: hydrALAZINE 20 MG/1 ML VIAL IV PRN (23:36)
[2019-09-21] MEDS ORDERED: DEXTROSE 50% 25 GM/50 ML VIAL IV PRN (23:36)
[2019-09-22 00:35] LABS: Risk Ratio 7.92; VLDL CHOLESTEROL 101.2 MG/DL
[2019-09-22] MEDS: POTASSIUM CHLORIDE RIDER 10 MEQ in PREMIX 1 EACH IV SCH (01:23)
[2019-09-22] MEDS: POTASSIUM CHLORIDE 20 MEQ TABLET PO PRN (01:34)
[2019-09-22] MEDS: SODIUM CHLORIDE 0.9% 1,000 ML IV SCH ×2 (01:36→11:54)
[2019-09-22] MEDS: INSULIN REGULAR 100 UNIT/ML SUBCUT SCH ×4 (01:40→17:45)
[2019-09-22 02:01] LABS: Apearance,Urine CLEAR (Clear); Bilirubin,Urine Negative (Negative); Blood, Urine Negative (Negative); Glucose,Urine (UA) Negative (Negative); Ketones,Urine 5 mg/dL (Negative); Mucus,Urine Occasional /LPF (Occasional); Nitrite,Urine Negative (Negative); Protein,Urine Negative; RBC,Urine 2 /HPF (0-4); Urine Color Yellow (Yellow); Urine Specific Gravity 1.014 (1.001-1.035); WBC,Urine 4 /HPF (0-6)
[2019-09-22] MEDS: ONDANSETRON 4 MG/2 ML VIAL IV PRN ×4 (02:36→20:37)
[2019-09-22] MEDS: PROMETHAZINE 25 MG/1 ML VIAL IM PRN ×3 (04:40→21:50)
[2019-09-22] MEDS ORDERED: PANTOPRAZOLE 40 MG VIAL IV SCH (09:00)
[2019-09-22] MEDS: SCOPOLAMINE 1.5 MG PATCH TRANSDERM SCH (10:04)
[2019-09-22] MEDS ORDERED: ONDANSETRON ODT 4 MG TABLET PO PRN (10:18)
[2019-09-22] MEDS ORDERED: MAGNESIUM SULF RIDER 4 GM in PREMIX 1 EACH IV PRN (11:05)
[2019-09-22] MEDS ORDERED: PROMETHAZINE 25 MG/1 ML VIAL IV PRN (11:05)
[2019-09-22] MEDS ORDERED: MAGNESIUM SULF RIDER 2 GM in PREMIX 1 EACH IV PRN (11:05)
[2019-09-22] MEDS ORDERED: PROMETHAZINE INJ 25 MG in SODIUM CHLORIDE 0.9% 50 ML IV PRN (11:09)
[2019-09-22] MEDS ORDERED: hydrALAZINE 20 MG/1 ML VIAL IV ONE (11:23)
[2019-09-22] MEDS ORDERED: METOCLOPRAMIDE 10 MG/10 ML UDCUP PO SCH (11:30)
[2019-09-22] MEDS ORDERED: SODIUM CHLOR 0.9% KCL 40 MEQ 40 MEQ/1,000 ML BAG IV SCH (11:30)
[2019-09-22] MEDS: THEOPHYLLINE ER (24 HR) 400 MG TABLET PO SCH (11:49)
[2019-09-22] MEDS ORDERED: IRON SUCROSE 300 MG in SODIUM CHLORIDE 0.9% 100 ML IV ONE (13:00)
[2019-09-22] MEDS: METOCLOPRAMIDE 10 MG/2 ML VIAL IV SCH ×2 (13:43→19:22)
[2019-09-22] MEDS ORDERED: METOPROLOL TARTRATE 5 MG/5 ML VIAL IV ONE (14:15)
[2019-09-22] MEDS ORDERED: cloNIDine 0.1 MG/24 HR PATCH TRANSDERM SCH (14:17)
[2019-09-22] MEDS ORDERED: PROMETHAZINE 12.5 MG SUPP RECTAL ONE (14:56)
[2019-09-22] MEDS: POTASSIUM CHLORIDE INJ 40 MEQ, SODIUM CHLORIDE 23.4% CONC INJ 38.5 MEQ in STERILE WATER... IV SCH (15:55)
[2019-09-22] MEDS: AZITHROMYCIN INJ 250 MG in SODIUM CHLORIDE 0.9% 250 ML IV SCH (17:46)
[2019-09-22] MEDS: carvediloL 12.5 MG TABLET PO SCH (20:39)
[2019-09-22] MEDS: GABAPENTIN 300 MG CAPSULE PO SCH (20:40)
[2019-09-22] MEDS: PANTOPRAZOLE 40 MG TABLET PO SCH (20:40)
[2019-09-22] MEDS: MONTELUKAST 10 MG TABLET PO SCH (20:40)
[2019-09-22] MEDS: lisinopriL 10 MG TABLET PO SCH (20:40)
[2019-09-22] MEDS: ZALEPLON 5 MG CAPSULE PO PRN (20:40)
[2019-09-22] MEDS: ROSUVASTATIN 20 MG TABLET PO SCH (20:43)
[2019-09-22] MEDS: OMEGA 3 ACID ETHYL ESTERS 1 GM CAPSULE PO SCH (20:43)
[2019-09-22] MEDS: MIRTAZAPINE 30 MG TABLET PO SCH (20:44)
[2019-09-22] MEDS ORDERED: MIRTAZAPINE 30 MG TABLET PO SCH (21:00)
[2019-09-23] MEDS: METOCLOPRAMIDE 10 MG/2 ML VIAL IV SCH ×4 (00:38→19:31)
[2019-09-23] MEDS: INSULIN REGULAR 100 UNIT/ML SUBCUT SCH ×4 (01:17→17:52)
[2019-09-23] MEDS: ONDANSETRON 4 MG/2 ML VIAL IV PRN ×5 (01:22→20:55)
[2019-09-23] MEDS: POTASSIUM CHLORIDE INJ 40 MEQ, SODIUM CHLORIDE 23.4% CONC INJ 38.5 MEQ in STERILE WATER... IV SCH (04:17)
[2019-09-23] MEDS: PROMETHAZINE 25 MG/1 ML VIAL IM PRN ×3 (04:17→18:13)
[2019-09-23 07:35] LABS: Basophils # 0.1 10*3/uL (0.0-0.2); Basophils % 0.5 % (0.0-0.8); Eosinophils % 0.3 % (0.00-10.9); Hematocrit 31.4 VOL% (35.7-47.0); Hemoglobin 9.7 GM/DL (12.0-16.0); Immature Granulocytes % 0.7 %; Immature Granulocytes Absolute 0.07 #; Lymphocytes # 2.3 10*3/uL (1.4-4.0); Lymphocytes % 21.7 % (21.3-54.2); Mean Corpuscular HGB Conc 30.9 GM/DL (32-36); Mean Corpuscular Volume 83.7 FL (87-102); Mean Platelet Volume 8.9 FL (9.6-12.0); Monocytes % 10.6 % (1.7-12.7); Neutrophils % 66.2 % (38.7-73.9); Platelet Count 349 T/CUMM (130-400); Red Blood Count 3.75 MC/CUMM (3.8-5.5); White Blood Count 10.7 T/CUMM (4-12)
[2019-09-23 08:02] LABS: Albumin 3.1 G/DL (3.4-5.0); Bilirubin,Total 0.4 MG/DL (0.2-1.0); Calcium 9.1 MG/DL (8.5-10.1); Osmolality,Calculated 274.7 MOS/KG (273-304); Total Protein 6.8 G/DL (6.4-8.3)
[2019-09-23] MEDS: COENZYME Q10 100 MG CAPSULE PO SCH (09:46)
[2019-09-23] MEDS: ASPIRIN EC 81 MG TABLET PO SCH (09:47)
[2019-09-23] MEDS: THEOPHYLLINE ER (24 HR) 400 MG TABLET PO SCH (09:47)
[2019-09-23] MEDS: acetaZOLAMIDE 250 MG TABLET PO SCH (09:47)
[2019-09-23] MEDS: POTASSIUM CHLORIDE 20 MEQ TABLET PO SCH (09:47)
[2019-09-23] MEDS: carvediloL 12.5 MG TABLET PO SCH ×2 (09:47→20:53)
[2019-09-23] MEDS: GABAPENTIN 300 MG CAPSULE PO SCH ×2 (09:47→20:54)
[2019-09-23] MEDS: FLUoxetine 20 MG CAPSULE PO SCH (09:48)
[2019-09-23] MEDS: MULTIVITAMIN (CENTRUM) TABLET PO SCH (09:48)
[2019-09-23] MEDS: MONTELUKAST 10 MG TABLET PO SCH ×2 (09:48→20:55)
[2019-09-23] MEDS: PANTOPRAZOLE 40 MG TABLET PO SCH ×2 (09:48→20:54)
[2019-09-23] MEDS: FERROUS SULFATE 325 MG TABLET PO SCH ×3 (09:49→20:53)
[2019-09-23] MEDS: CHLORTHALIDONE 25 MG TABLET PO SCH (09:50)
[2019-09-23] MEDS: FUROSEMIDE 20 MG TABLET PO SCH (09:50)
[2019-09-23] MEDS: AZITHROMYCIN INJ 250 MG in SODIUM CHLORIDE 0.9% 250 ML IV SCH (15:56)
[2019-09-23] MEDS: ROSUVASTATIN 20 MG TABLET PO SCH (20:53)
[2019-09-23] MEDS: lisinopriL 10 MG TABLET PO SCH (20:54)
[2019-09-23] MEDS: OMEGA 3 ACID ETHYL ESTERS 1 GM CAPSULE PO SCH (20:54)
[2019-09-23] MEDS: ZALEPLON 5 MG CAPSULE PO PRN (20:55)
[2019-09-23] MEDS: MIRTAZAPINE 30 MG TABLET PO SCH (20:55)
[2019-09-24] MEDS: METOCLOPRAMIDE 10 MG/2 ML VIAL IV SCH ×2 (00:30→06:02)
[2019-09-24] MEDS: INSULIN REGULAR 100 UNIT/ML SUBCUT SCH ×5 (01:30→23:16)
[2019-09-24] MEDS: PROMETHAZINE 25 MG/1 ML VIAL IM PRN (01:31)
[2019-09-24 05:58] LABS: Basophils # 0.1 10*3/uL (0.0-0.2); Basophils % 0.8 % (0.0-0.8); Eosinophils # 0.2 10*3/uL (0.0-0.87); Eosinophils % 2.3 % (0.00-10.9); Hematocrit 34.4 VOL% (35.7-47.0); Hemoglobin 10.2 GM/DL (12.0-16.0); Lymphocytes # 2.5 10*3/uL (1.4-4.0); Lymphocytes % 25.4 % (21.3-54.2); Mean Corpuscular HGB Conc 29.7 GM/DL (32-36); Mean Corpuscular Volume 87.3 FL (87-102); Mean Platelet Volume 9.5 FL (9.6-12.0); Monocytes % 9.8 % (1.7-12.7); NRBC # 0.02 10*3/uL; Neutrophils % 60.7 % (38.7-73.9); Platelet Count 406 T/CUMM (130-400); Red Blood Count 3.94 MC/CUMM (3.8-5.5); Red Cell Distribution Width 18.4 % (9.3-17.3); White Blood Count 9.7 T/CUMM (4-12)
[2019-09-24 06:08] LABS: Alanine Aminotransferase 25 U/L (13-56); Albumin 3.1 G/DL (3.4-5.0); Alkaline Phosphatase 88 U/L (45-117); Aspartate Amino Transferase 34 U/L (0-37); Bilirubin,Total < 0.39 MG/DL (0.2-1.0); Blood Urea Nitrogen 7 MG/DL (7-18); Calcium 9.2 MG/DL (8.5-10.1); Estimated Glom Filtration Rate 90 ML/MIN; Glucose 156 MG/DL (74-106); Osmolality,Calculated 273.8 MOS/KG (273-304); Total Protein 6.8 G/DL (6.4-8.3)
[2019-09-24] MEDS: POTASSIUM CHLORIDE RIDER 10 MEQ in PREMIX 1 EACH IV PRN (07:36)
[2019-09-24] MEDS: LACTATED RINGERS 1,000 ML IV SCH (08:33)
[2019-09-24] MEDS ORDERED: LIDOCAINE 2% 5 ML VIAL ONE (09:00)
[2019-09-24] MEDS ORDERED: propofoL 200 MG/20 ML VIAL IV ONE (09:00)
[2019-09-24] MEDS ORDERED: ONDANSETRON 4 MG/2 ML VIAL ONE (09:00)
[2019-09-24] MEDS ORDERED: POTASSIUM CHLORIDE 20 MEQ TABLET PO ONE (10:15)
[2019-09-24] MEDS: FLUoxetine 20 MG CAPSULE PO SCH (10:25)
[2019-09-24] MEDS: GABAPENTIN 300 MG CAPSULE PO SCH ×2 (10:25→20:34)
[2019-09-24] MEDS: FUROSEMIDE 20 MG TABLET PO SCH (10:25)
[2019-09-24] MEDS: FERROUS SULFATE 325 MG TABLET PO SCH ×3 (10:26→20:34)
[2019-09-24] MEDS: PANTOPRAZOLE 40 MG TABLET PO SCH ×2 (10:26→20:33)
[2019-09-24] MEDS: THEOPHYLLINE ER (24 HR) 400 MG TABLET PO SCH (10:26)
[2019-09-24] MEDS: MONTELUKAST 10 MG TABLET PO SCH ×2 (10:26→20:33)
[2019-09-24] MEDS: CHLORTHALIDONE 25 MG TABLET PO SCH (10:26)
[2019-09-24] MEDS: MULTIVITAMIN (CENTRUM) TABLET PO SCH (10:26)
[2019-09-24] MEDS: acetaZOLAMIDE 250 MG TABLET PO SCH (10:26)
[2019-09-24] MEDS: POTASSIUM CHLORIDE 20 MEQ TABLET PO SCH (10:27)
[2019-09-24] MEDS: COENZYME Q10 100 MG CAPSULE PO SCH (10:27)
[2019-09-24] MEDS: ASPIRIN EC 81 MG TABLET PO SCH (10:27)
[2019-09-24] MEDS: carvediloL 12.5 MG TABLET PO SCH ×2 (10:27→20:34)
[2019-09-24] MEDS: METOCLOPRAMIDE 10 MG/10 ML UDCUP PO SCH ×3 (12:22→20:35)
[2019-09-24] MEDS: AZITHROMYCIN INJ 250 MG in SODIUM CHLORIDE 0.9% 250 ML IV SCH (15:55)
[2019-09-24] MEDS: OMEGA 3 ACID ETHYL ESTERS 1 GM CAPSULE PO SCH (20:33)
[2019-09-24] MEDS: lisinopriL 10 MG TABLET PO SCH (20:34)
[2019-09-24] MEDS: ZALEPLON 5 MG CAPSULE PO PRN (20:34)
[2019-09-24] MEDS: MIRTAZAPINE 30 MG TABLET PO SCH (20:35)
[2019-09-24] MEDS: ROSUVASTATIN 20 MG TABLET PO SCH (20:38)
[2019-09-25] MEDS: MIRTAZAPINE 30 MG TABLET PO SCH (00:05)
[2019-09-25 06:14] LABS: Basophils # 0.1 10*3/uL (0.0-0.2); Eosinophils # 0.4 10*3/uL (0.0-0.87); Eosinophils % 3.7 % (0.00-10.9); Hematocrit 35.1 VOL% (35.7-47.0); Hemoglobin 10.4 GM/DL (12.0-16.0); Immature Granulocytes % 1.1 %; Immature Granulocytes Absolute 0.11 #; Lymphocytes # 2.4 10*3/uL (1.4-4.0); Lymphocytes % 23.5 % (21.3-54.2); Mean Corpuscular HGB Conc 29.6 GM/DL (32-36); Mean Corpuscular Volume 86.7 FL (87-102); Mean Platelet Volume 9.6 FL (9.6-12.0); Monocytes % 8.7 % (1.7-12.7); NRBC # 0.02 10*3/uL; Platelet Count 413 T/CUMM (130-400); Red Blood Count 4.05 MC/CUMM (3.8-5.5); Red Cell Distribution Width 18.1 % (9.3-17.3); White Blood Count 10.4 T/CUMM (4-12)
[2019-09-25 06:32] LABS: Bilirubin,Total 0.4 MG/DL (0.2-1.0); Calcium 8.8 MG/DL (8.5-10.1); Osmolality,Calculated 282.8 MOS/KG (273-304); Total Protein 6.7 G/DL (6.4-8.3)
[2019-09-25] MEDS: INSULIN REGULAR 100 UNIT/ML SUBCUT SCH ×2 (06:52→12:28)
[2019-09-25] MEDS: POTASSIUM CHLORIDE RIDER 10 MEQ in PREMIX 1 EACH IV PRN (06:53)
[2019-09-25] MEDS: LACTATED RINGERS 1,000 ML IV SCH (07:20)
[2019-09-25] MEDS: POTASSIUM CHLORIDE 20 MEQ TABLET PO SCH (08:57)
[2019-09-25] MEDS: METOCLOPRAMIDE 10 MG/10 ML UDCUP PO SCH ×2 (08:57→11:33)
[2019-09-25] MEDS: FUROSEMIDE 20 MG TABLET PO SCH (08:57)
[2019-09-25] MEDS: POTASSIUM CHLORIDE 20 MEQ TABLET PO PRN (08:57)
[2019-09-25] MEDS: acetaZOLAMIDE 250 MG TABLET PO SCH (08:57)
[2019-09-25] MEDS: carvediloL 12.5 MG TABLET PO SCH (08:58)
[2019-09-25] MEDS: ASPIRIN EC 81 MG TABLET PO SCH (08:58)
[2019-09-25] MEDS: MULTIVITAMIN (CENTRUM) TABLET PO SCH (08:58)
[2019-09-25] MEDS: CHLORTHALIDONE 25 MG TABLET PO SCH (08:58)
[2019-09-25] MEDS: FERROUS SULFATE 325 MG TABLET PO SCH (08:58)
[2019-09-25] MEDS: FLUoxetine 20 MG CAPSULE PO SCH (08:58)
[2019-09-25] MEDS: GABAPENTIN 300 MG CAPSULE PO SCH (08:58)
[2019-09-25] MEDS: COENZYME Q10 100 MG CAPSULE PO SCH (08:58)
[2019-09-25] MEDS: PANTOPRAZOLE 40 MG TABLET PO SCH (08:58)
[2019-09-25] MEDS: MONTELUKAST 10 MG TABLET PO SCH (08:58)
[2019-09-25] MEDS: SCOPOLAMINE 1.5 MG PATCH TRANSDERM SCH (08:59)
[2019-09-25] MEDS: THEOPHYLLINE ER (24 HR) 400 MG TABLET PO SCH (09:03)
[2019-09-25] MEDS ORDERED: POTASSIUM CHLORIDE 20 MEQ TABLET PO ONE (10:17)
[2019-09-25 12:14] VITALS: BP 110/53
== END 2019-09-25 13:43 | disposition home health service (06) | DRG 74 ==
LOC: EDBD → EDUNIT# → N.EDINP 21:53 → N.ED 21:53 → N.TELES 09-22 09:18 → SUATTDRO 09-22 16:40
PROVIDERS: ADMIT Internal Medicine; ATTEND Family Medicine